=== PATIENT | male | born 1955 | race Caucasian/White ===

== ENCOUNTER 2018-05-28 15:01 | Inpatient (IN) ==
--- NOTE | 2018-05-28 16:09 | EKG Report ---
Test Performed on : 05/28/2018 3:18:42 PM Test Reason : FLUID ON LUNGS Blood Pressure : / mmHG Vent. Rate : 100 BPM Atrial Rate : 100 BPM P-R Int : 142 ms QRS Dur : 064 ms QT Int : 328 ms P-R-T Axes : 029 011 005 degrees QTc Int : 423 ms Normal sinus rhythm. Low voltage QRS Cannot rule out Anterior infarct , age undetermined Abnormal ECG When compared with ECG of 24-AUG-2017 15:34, Nonspecific T wave abnormality, worse in Anterior leads Unconfirmed Result
[2018-05-28 16:19] LABS: BASO# 0.02 X1000 (0.0-0.2); BASO% 0.3 % (0.0-0.8); EOS# 0.11 X1000 (0.0-0.7); EOS% 1.7 % (0.0-10.0); HEMATOCRIT 33.7 % (42.0-52.0); HEMOGLOBIN 11.2 g/dL (14.0-18.0); LYMPH# 1.23 X1000 (1.2-3.4); LYMPH% 19.4 % (20.5-51.1); MCH 35.1 PG (27-31); MCHC 33.2 g/dL (33-37); MCV 105.6 FL (81-99); MONO# 0.51 X1000 (0.11-0.59); MONO% 8.1 % (1.7-9.3); MPV 10.6 FL (7.4-10.4); NEUT# 4.46 X1000 (1.4-6.5); NEUT% 70.5 % (42.2-75.2); PLT 97 X1000 (130-400); RBC 3.19 XMIL (4.7-6.1); RDW 14.7 % (11.5-14.5); WBC 6.33 X1000 (4.8-10.8)
--- NOTE | 2018-05-28 16:28 | Diag Imaging Result Doc PS360 ---
EXAM: CHEST-1 VIEW HISTORY: ascites TECHNIQUE: Single view COMPARISON: 08/31/2017 FINDINGS: The lungs are well expanded. The heart is not enlarged. The vessels are not distended. There are no infiltrates. No effusion identified. IMPRESSION: Negative exam. Electronically signed by Nikko Santa 05/28/2018 4:25 PM
[2018-05-28 16:32] LABS: ALB/GLOB RATIO 0.8; ALBUMIN 2.7 g/dL (3.5-5.0); CALCIUM 8.4 mg/dL (8.8-10.2); POTASSIUM 4.5 mmol/L (3.5-5.1); TOTAL BILIRUBIN 1.27 mg/dL (0.20-1.00); TOTAL PROTEIN 5.9 g/dL (6.3-8.3)
[2018-05-28 16:39] LABS: INR 1.14; PROTIME 15.5 Seconds (11.0-16.0); PTT 32.1 Seconds (22.3-41.8)
--- NOTE | 2018-05-28 18:43 | PROVIDER DOCUMENTATION ---
This chart was entered by Serena Dorado Scribe, acting as scribe for Tyler Ayala MD. HPI-Abdominal Pain/GI Problem - General Chief Complaint: Abdominal Pain Stated Complaint: FLUID ON LUNGS-DR HALL REF Time Seen by Provider: 05/28/18 15:33 Source: patient Allergies/Adverse Reactions: Patient Allergies Allergy/AdvReac Type Severity Reaction Status Date / Time No Known Allergies Allergy Verified 05/28/18 16:09 Home Medications: Home Medication List Medication Instructions Recorded Confirmed Last Taken Type Metformin [Glucophage] 850 mg PO DAILY 08/24/17 05/28/18 05/28/18 History Folic Acid 1 mg PO DAILY #30 tab 09/05/17 05/28/18 05/28/18 Rx Omeprazole [Prilosec] 40 mg PO DAILY #30 capsule. 09/05/17 05/28/18 05/28/18 Rx Oxycodone I.r. [Oxy Ir] 5 mg PO Q4H PRN #30 tablet 09/05/17 Unknown Rx Spironolactone [Aldactone] 100 mg PO DAILY #60 tab 09/05/17 05/28/18 05/28/18 Rx Topiramate [Topamax] 25 mg PO DAILY #30 tab 09/05/17 05/28/18 05/28/18 Rx Sofosbuvir/Velpatasvir [Epclusa 1 tab PO DAILY 05/28/18 05/28/18 05/28/18 Hi story 400 mg-100 mg Tablet] - History of Present Illness-ABD Nature of Presenting Problems: Patient is a 62 year old male who presents with generalized abdominal pain and swelling that has been present for 2 weeks. Report history of cirrhosis. States shortness of breath. Denies nausea, vomiting and fever. Abdominal Pain Onset Location: reports: generalized abdomen Pain Radiation: reports: no radiation Quality of Pain: reports: aching, tightness Severity in ED: reports: mild Onset/Duration: reports: gradual, other (2 weeks) Timing: reports: still present Associated Symptoms: reports: shortness of breath Bruising or Bleeding Gums?: No Similar Symptoms Previously?: Yes Recently seen or treated by another doctor?: Yes Review of Systems - Adult - REVIEW OF SYSTEMS - ADULT Constitutional: reports: no symptoms reported. denies: chills, fever, fatique Eyes: reports: no symptoms reported Ears, Nose, Mouth & Throat: reports: no symptoms reported Cardiovascular: reports: no symptoms reported Respiratory: reports: see HPI, shortness of breath. denies: cough, wheezing Gastrointestinal: reports: see HPI, abdominal pain. denies: diarrhea, nausea, vomiting Genitourinary: reports: no symptoms reported Musculoskeletal: reports: no symptoms reported Integumentary: reports: no symptoms reported Neurological: reports: no symptoms reported Psychiatric: reports: no symptoms reported Endocrine: reports: no symptoms reported Hematologic/Lymphatic: reports: no symptoms reported Allergic/Immunologic: reports: no symptoms reported All Other Systems: Reviewed and Negative Past History - Adult - PAST MEDICAL HISTORY-ADULT Review of Records: reports: Nursing Assessment Review, Medications Reviewed, Social history reviewed & non-contributory. Major Childhood Illnesses: reports: denies history Cardiovascular: reports: denies history Respiratory: reports: denies history Gastrointestinal: reports: hepatitis (C) Obstetrical/Gynecological: reports: denies history Genitourinary: reports: denies history Musculoskeletal: reports: denies history Neurological: reports: Seizures/Epilepsy Psychiatric: reports: denies history Endocrine/Immune: reports: Diabetes Other Conditions: reports: denies history - PRIOR SURGERIES/PROCEDURES Surgical/Procedure History: reports: none - IMMUNIZATION STATUS Childhood Immunizations: See Nurse Assessment Flu Vaccine: See Nurse Assessment - FAMILY HISTORY Family History: reviewed, not pertinent - SOCIAL HISTORY Smoking: cigarettes, less than 1 pack/day Provider spent 3-5 mins advising pt. on dangers of tobacco.: Discussed manners to quit use, and f/u contacts for add'l counseling. Substance Use: denies Physical Exam-General - PHYSICAL EXAM-ADULT Initial Vital Signs Reviewed: Yes - CONSTITUTIONAL General Appearance: alert, no apparent distress. negative: lethargic, slow to respond - HEAD, EARS, NOSE, MOUTH & THROAT HENMT: moist mucous membranes, normal ENT inspection. negative: angioedema, hearing deficit - RESPIRATORY Respiratory: chest non-tender, lungs clear, normal breath sounds. negative: crackles, rhonchi - CARDIOVASCULAR Cardiovascular: normal peripheral pulses, regular rate, rhythm. negative: tachycardia, systolic murmur - GASTROINTESTINAL (ABDOMEN) Abdominal Exam: normal bowel sounds, distended, other (positive fluid wave) - MUSCULOSKELETAL Extremity: non-tender, other (3 + pitting edema to bilateral lower extremities.) . negative: deformity, erythema - SKIN Integumentary: normal color, normal turgor, warm/dry. negative: cyanosis, ecchymosis, jaundice - NEUROLOGIC Neurologic: grossly normal. negative: aphasia, facial droop - PSYCHIATRIC Psych/Mental Status: normal mood/affect, oriented x 3. negative: paranoid, tearful Progress - PLAN OF CARE/RESULTS Progress/Plan/Lab Results: Vital Signs - 8 hr 05/28/18 15:05 05/28/18 15:21 05/28/18 16:06 Temperature 98.5 F 98.3 F Pulse Rate 79 101 H 97 H Respiratory Rate 20 18 16 Blood Pressure 105/65 111/73 O2 Sat by Pulse Oximetry 97 96 98 Orders Category Date Time Status CHEST-1 VIEW [RAD] Stat Exams 05/28/18 16:01 Ordered AMMONIA [CHEM] Stat Lab 05/28/18 16:01 Uncollected CBC WITH DIFF [HEME] Stat Lab 05/28/18 15:13 Results COMPREHENSIVE METABOLIC PANEL [CHEM] Stat Lab 05/28/18 15:13 Received PROTIME WITH INR [COAG] Stat Lab 05/28/18 15:13 Received PTT [COAG] Stat Lab 05/28/18 15:13 Received EKG [EKG] Stat Ther 05/28/18 16:01 Draft Result Diagrams: 05/28/18 15:13 05/28/18 15:13 - EKG 1 Time of EKG reading by physician:: 15:18 EKG Read and Signed by:: Tyler Ayala EKG Interpretation (*Must complete 3 of following elements*): Abnormal Rate: 100 Rhythm: normal sinus rhythm QRS: other (low voltage) HI Interval: normal Comments: cannot rule out anterior infarct, age undetermined - CONSULTS/PCP/HOSPITALIST Notification #1 *Consult/PCP/Hospitalist*: [facility] Time Discussed: 18:35 Consult Disposition: Will see in ED, Admit Departure - Departure Date of Disposition Decision: 05/28/18 Time of Disposition Decision: 18:35 DIAGNOSIS: Ascites, Cirrhosis Disposition: ADMITTED INPATIENT 09 Certified Medical Emergency: Emergent Condition: Good Referrals and Follow-Ups: Uzair Hall Jr, MD [Primary Care Provider] - - Critical Care Note This patient required my direct & personal management of CC.: No Attestation - Physician/ JENNIFER Attestation Patient care was provided by Advanced Practice Provider:: No The physician spent face to face time with patient:: Yes Advanced Practice Provider documentation review:: Supervising physician onsite and consulted in the evaluation and care of this patient. The physician did have a face to face encounter with the patient. This chart was documented by the indicated scribe, (Serena Dorado Scribe) and accurately reflects the services I performed and decisions made by me, Tyler Ayala MD, as attested by the provider's signature.
[2018-05-28] MEDS ORDERED: ALBUMIN 25% IV ONE (19:26)
[2018-05-28] MEDS ORDERED: ZOFRAN IV PRN (19:26)
[2018-05-28] MEDS ORDERED: NS 1,000 ML IV SCH (19:30)
[2018-05-28] MEDS ORDERED: LASIX IV ONE (19:31)
[2018-05-28] MEDS: OXY IR PO PRN (20:55)
[2018-05-28] MEDS ORDERED: LACTULOSE PO SCH (21:00)
[2018-05-28] MEDS ORDERED: PNEUMOVAX 23 IM ONE (23:07)
[2018-05-29] MEDS: OXY IR PO PRN ×2 (00:51→15:10)
[2018-05-29] MEDS: PRILOSEC PO SCH (06:16)
[2018-05-29] MEDS: HUMALOG SUBQ SCH ×5 (06:56→22:49)
[2018-05-29 07:08] LABS: CALCIUM 8.3 mg/dL (8.8-10.2); CREATININE 1.6 mg/dL (0.7-1.2); POTASSIUM 3.9 mmol/L (3.5-5.1)
[2018-05-29 07:32] LABS: HEMOGLOBIN A1C 4.5 % (4.8-6.0)
[2018-05-29] MEDS ORDERED: ALBUMIN 25% IV ONE (07:40)
--- NOTE | 2018-05-29 08:46 | HISTORY AND PHYSICAL ---
CHIEF COMPLAINT: Abdominal pain. HISTORY OF PRESENT ILLNESS: A 63-year-old male who presents with generalized abdominal pain and swelling present for 2 weeks, has been increasing. Also complains of lower extremity swelling, is having increased shortness of breath related to his abdominal distention. Denies nausea, vomiting, fever. He has a past medical history that includes hepatitis C, cirrhosis, colitis and diabetes mellitus type 2. Chest x-ray showed no acute disease; however, he was somewhat hypoxic on room air and abdomen was distended. He will be admitted for further evaluation and treatment. PAST MEDICAL HISTORY: See HPI. PREVIOUS SURGICAL HISTORY: Denies. SOCIAL HISTORY: He smokes around 1/2 pack a day. Drank alcohol in the 1970s, has not drank since then. No illicit drugs. ALLERGIES: No known drug allergies. HOME MEDICATIONS: 1. Metformin 850 p.o. daily. 2. Folic acid one mg p.o. daily. 3. Omeprazole 40 mg p.o. daily. 4. Oxycodone IR 5 mg p.o. q.4. 5. Epclusa 400/100 one tablet p.o. daily. 6. Aldactone 100 mg p.o. daily. 7. Topamax 25 mg p.o. daily. FAMILY HISTORY: Sister with cirrhosis and nephew with cirrhosis. Denied other illness in first degree relatives. REVIEW OF SYSTEMS: A 14 point review of systems conducted with the patient and pertinent positives as listed above in the HPI. All other systems reviewed and found to be negative. PHYSICAL EXAMINATION: VITAL SIGNS: Temp 98.1 degrees, pulse 98, respirations 16, blood pressure 122/50, oxygen saturation 99% on room air. GENERAL: A 63-year-old man lying in the ER stretcher, answers all questions appropriately. Alert and oriented x3. He is in no acute distress. HEENT: Head is atraumatic, normocephalic. Pupils equal, round and reactive to light. Extraocular eye movements are intact. Sclerae anicteric. Conjunctivae is mildly pale. Oral mucosa is moist. NECK: Supple. No JVD. No thyromegaly. Trachea is midline. No cervical lymphadenopathy. CARDIAC: S1, S2 appreciated. No murmurs, gallops, rubs. LUNGS: Clear to auscultation bilaterally. No rhonchi, wheezes or rales. Symmetric rise and fall of respirations. ABDOMEN: Distended, somewhat tight. Positive fluid wave test. Bowel sounds decreased all 4 quadrants. Tender to palpation diffusely. EXTREMITIES: 2+ pitting edema mid thigh to foot. 1+ pedal pulses. GENITOURINARY: No bladder distention. Patient voids. Otherwise deferred. NEUROLOGICAL: Alert and oriented x3. Cranial nerves 2-12 appear to be grossly intact. DIAGNOSTIC DATA: Chest x-ray, no acute disease. LABORATORY DATA: WBC 6.33, hemoglobin 11.2, hematocrit 33.7, platelet count 97,000. Coags within normal limits. Sodium 140, potassium 4.5, chloride 109, carbon dioxide 19, BUN 23, creatinine 2, glucose 120. Total bilirubin 1.27. ASSESSMENT AND PLAN: 1. Cirrhosis with ascites. We will order an abdominal ultrasound. Patient may be able to have paracentesis which will relieve some of the pain. At this time, we will get 25 grams of albumin and 60 of Lasix. Consult JUAREZ Hartman. 2. Hepatitis C, aware. Continue home medications. 3. Acute kidney injury on chronic kidney disease. As noted above, gave albumin and Lasix. We will give gentle fluid rehydration, recheck laboratory data. 4. Diabetes mellitus type 2. Hold metformin. Check hemoglobin A1c. Sliding scale insulin with fingerstick blood sugars. Further recommendations per patient's clinical course. Dictated by MATT Mehta for Colton Schrader MD cc: MATT Mehta MD Patient seen and examined by il. He has a history of liver cirrhosis/hep.C and presenting with abdominal distention . Patient noted to have ascites. Will need paracentesis and diuretics with GI eval. Dr. Schrader. [facility]ITAL[facility]an[facility]
[2018-05-29] MEDS ORDERED: VELPATASVIR PO SCH (09:00)
[2018-05-29] MEDS ORDERED: SOFOSBUVIR PO SCH (09:00)
[2018-05-29] MEDS ORDERED: ALDACTONE PO SCH (09:00)
[2018-05-29] MEDS: TOPAMAX PO SCH (09:24)
[2018-05-29] MEDS: FOLIC ACID PO SCH (09:24)
--- NOTE | 2018-05-29 09:44 | GASTROENTEROLOGY CONSULTATION ---
DATE: 05/29/2018 REASON FOR CONSULTATION: decompensated cirrhosis with ascites HPI: Mr. Lito Pretty is a 63 year old man with history of decompensated HCV cirrhosis c/b ascites who presents with 3 weeks of worsening abdominal pain, ascites, weight gain, and LE edema. He reports associated early satiety and poor appetite. No N/V/F, hematemesis, diarrhea, melena, constipation, rectal bleeding, lightheadedness, headache, SOB, cough, confusion. He does have AGUILERA. He reports compliance with home aldactone. However, he does admit to non-compliance with low Na diet. He says he does add salt to food and consumes "a lot" of sodium. He denies history of hepatic encephalopathy. No prior EGD or colonoscopy. He was started on Epclusa about 2-3 months ago and was told that he has "6 bottles" of treatment left. He is currently being treated by a physician at [facility]. He has gained about 13 pounds since onset of symptoms. ROS: as per HPI, otherwise 12 point ROS negative PMH: Decompensated HCV cirrhosis, ascites, GERD, NIDDM2, headaches, tobacco abuse PSH: none FH: No FHx of liver disease or GI malignancies SH: smokes 1/2 ppd, has been smoking for last 40 years; remote etoh abuse (last drink 30 years ago); remote opioid abuse (pills) MEDS: metformin, folic acid, omeprazole, oxycodone, Epclusa, aldactone, topamax, ibuprofen prn ALL: NDKA PE: VS: T 98.5 HR 91 BP 97/54 RR 14 O2 93% RA GEN: awake, alert, NAD, chronically ill appearing HEENT: anicteric, MMM, EOMI NECK: supple, no jvd CV: RRR, no mrg PULM: CTAB, no wheezing ABD: distended with tense ascites, hypoactive BS, diffuse mild TTP throughout EXT: trace LE edema, WWP MSK: peripheral muscle wasting, decrease bulk/tone NEURO: nonfocal, no asterixis; no hepatic encephalopathy LABS: Na 140 K 4.5 Cl 109 CO2 19 BUN 23 Cr 2.0 WBC 6.3 Hgb 11.2 Plt 97K Alb 2.7 pro 5.9 Tbili 1.27 AST 29 ALT 13 ALP 87 INR 1.14 ammonia 83 TSH 5.37 EXAM: CHEST-1 VIEW 05/28 HISTORY: ascites TECHNIQUE: Single view COMPARISON: 08/31/2017 FINDINGS: The lungs are well expanded. The heart is not enlarged. The vessels are not distended. There are no infiltrates. No effusion identified. IMPRESSION: Negative exam. A/P: Mr. Lito Pretty is a 63 year old man with history of decompensated HCV cirrhosis who presents with worsening ascites, LE edema, and weight gain in the setting of noncompliance with low salt diet. He has SUJIT as well. #Decompensated HCV cirrhosis: MELD-Na 15, CP-B9 - Cirrhosis: 2/2 to HCV; trend LFTs daily - Ascites: diagnostic and therapeutic paracentesis today; will give albumin IV 50gm; low Na diet, trend I/O, daily weights - PSE: none prior; no asterixis; ammonia is not a good surrogate for hepatic encephalopathy; no indication for lactulose - EV: no overt bleeding; patient will need EGD for varices screening as outpatient - HCC: recommend liver US for hepatoma screening (ordered) - OLT: MELD-Na 15, smoker #SUJIT: hold diuretics, renally dose meds, albumin today; trend Cr daily #HCV: continue home Epclusa #Protein calorie malnutrition: continue folic acid, recommend high protein calorie diet, ensure with meals #Anemia: no overt bleeding; will need EGD/colonoscopy as outpatient #GERD: controlled; continue PPI #NIDDM2: hold metformin, SSI #Tobacco abuse: encourage smoking cessation Thank you for this consult. Will follow with you. KARIS
--- NOTE | 2018-05-29 11:09 | Diag Imaging Result Doc PS360 ---
US ABD PARACENTESIS W S/I - 05/29/2018 INDICATION: ascites COMPARISON: None FINDINGS: The risks and benefits of the procedure were discussed with the patient. All questions were answered. Written and verbal consent was obtained. Ultrasound scanning demonstrated ascites. Overlying skin was prepped and draped in sterile fashion. Anesthesia was achieved with injection of 10 cc 1% lidocaine. The paracentesis catheter was advanced until the return of ascites fluid. 7.8 L was aspirated. The catheter was withdrawn intact. The patient reported no symptoms from the procedure. IMPRESSION: Successful and uncomplicated ultrasound-guided paracentesis. Electronically signed by Uzair Gillette 05/29/2018 11:07 AM
--- NOTE | 2018-05-29 11:13 | Diag Imaging Result Doc PS360 ---
US ABDOMEN-COMPLETE - 05/29/2018 INDICATION: paracentesis? COMPARISON: None FINDINGS: The liver is extremely nodular and atrophic. No liver masses. Echotexture is diffusely increased compatible with fatty change. There is nonspecific bowel or wall thickening. There are a few small stones in the gallbladder. No gallbladder distention. There is significant splenomegaly. The spleen measures 16.1 x 7.3 cm. There is a shadowing reflector in the left renal collecting system measuring about 6 mm. This suggests a renal stone. No hydronephrosis. The right kidney is normal. The pancreas is obscured. Aorta, IVC, and main portal vein are patent. There is significant ascites. IMPRESSION: 1. Advanced cirrhosis. Splenomegaly. 2. Significant ascites. 3. Tiny gallstones in the gallbladder. 4. Probable nonobstructing stone in the left kidney. Electronically signed by Uzair Gillette 05/29/2018 11:11 AM
[2018-05-29 12:58] LABS: ALBUMIN BODY FLUID 0.5 g/dL
[2018-05-29 13:12] LABS: BODY FLUID SOURCE PERITONEAL FLUID; POLYS 28 %; WBC BF 80 /cumm
[2018-05-29 13:13] LABS: MONOS 72 %
--- NOTE | 2018-05-29 16:48 | PROGRESS NOTE ---
DATE: 05/29/2018 SUBJECTIVE: This morning Mr. Pretty refers to be doing a whole lot better. He is status post paracenteses and 7.8 L were aspirated under ultrasound guidance by IR. OBJECTIVE: Vital signs: Blood pressure is 99/49, pulse is 109, respirations 16, temperature is 98.1 degrees. General: Mr. Pretty is a 63-year-old male. He is in bed, no distress. He is full of tattoos. HEENT: Mucosa is pink and moist. Anicteric. Acyanotic. Neck: Supple. Chest: Clear to auscultation. Cardiovascular: Regular rate and rhythm. Abdomen: Soft. There is still some fluid shift in the lower abdomen. Extremities: About 2+ pedal edema. MANAGER [place]: Patient is awake, alert, and oriented. No focal neurological deficit. LABORATORY DATA: Chemistry has been reviewed today. Creatinine is down to 1.6. Total bilirubin is 1.27. Fluid analysis is consistent with SAAG which is more than 1.1, consistent with portal hypertension. ASSESSMENT: 1. Cirrhosis complicated with ascites, portal hypertension. 2. Cirrhosis of the liver due to a combination of alcohol and hepatitis C. 3. Ascites, status post large volume paracenteses, 7.8 has been removed under ultrasound guidance by IR. The patient has been given albumin. 4. Hepatitis C. The patient is on medications. We will continue with that. 5. Diabetes mellitus, controlled. 6. Macrocytosis. Likely due to cirrhosis, alcohol side effects. 7. Acute kidney injury. Creatinine seems to be on downward trend. We are going to continue to follow. cc: Morgan Torres MD
[2018-05-30] MEDS: HUMALOG SUBQ SCH ×3 (03:00→08:37)
[2018-05-30 07:19] LABS: BASO# 0.02 X1000 (0.0-0.2); BASO% 0.5 % (0.0-0.8); EOS# 0.14 X1000 (0.0-0.7); EOS% 3.4 % (0.0-10.0); HEMATOCRIT 28.9 % (42.0-52.0); HEMOGLOBIN 9.8 g/dL (14.0-18.0); LYMPH# 1.52 X1000 (1.2-3.4); MCH 35.9 PG (27-31); MCHC 33.9 g/dL (33-37); MCV 105.9 FL (81-99); MONO# 0.34 X1000 (0.11-0.59); MONO% 8.3 % (1.7-9.3); MPV 10.2 FL (7.4-10.4); NEUT# 2.09 X1000 (1.4-6.5); NEUT% 50.8 % (42.2-75.2); PLT 69 X1000 (130-400); RBC 2.73 XMIL (4.7-6.1); RDW 14.4 % (11.5-14.5); WBC 4.11 X1000 (4.8-10.8)
[2018-05-30 07:33] VITALS: BP 96/51
[2018-05-30 07:40] LABS: AGAP 7; ALBUMIN 2.4 g/dL (3.5-5.0); BUN 17 mg/dL (8-22); CALCIUM 7.8 mg/dL (8.8-10.2); CHLORIDE 109 mmol/L (98-107); COSMO 275; CREATININE 1.1 mg/dL (0.7-1.2); ESTIMATED GFR > 60; GLUCOSE 84 mg/dL (70-104); PHOSPHORUS 2.1 mg/dL (2.7-4.5); SODIUM 137 mmol/L (136-145); TCO2 21 mmol/L (25-35)
[2018-05-30] MEDS: FOLIC ACID PO SCH (08:36)
[2018-05-30] MEDS: PRILOSEC PO SCH (08:36)
[2018-05-30] MEDS: TOPAMAX PO SCH (08:37)
--- NOTE | 2018-05-30 11:46 | GASTROENTEROLOGY PROGRESS NOTE ---
DATE: 05/30/2018 SUBJECTIVE: Patient is resting in bed. He is feeling better. He denies any fevers, rigors, or chills. He denies any nausea or vomiting. He is on full liquid diet. The patient is currently on treatment with Epclusa per abap developer at [place] for chronic hepatitis C. OBJECTIVE: Vital signs: Temperature 99.2 degrees, pulse rate of 88, respiratory rate of 16, blood pressure 92/51, saturating 96% on room air. Weight: Body weight of 179 pounds. BMI 23 kg/m2. General Appearance: Moderately built, moderately nourished, lying in bed, in no acute distress. HEENT: Pale conjunctiva. Mild icterus. Neck is supple. Abdomen is protuberant, soft, nontender, no guarding, no rebound. Extremities: No cyanosis, clubbing. Neurologic: Alert, awake, oriented x3. DIAGNOSTIC STUDIES: Hemoglobin 9.8, hematocrit 28.9, white count of 4.1, platelet count 69. Sodium 137, potassium 4, chloride 109, bicarbonate 20, anion gap 7, BUN of 17, glucose 84, calcium 7.8, phosphorus 2.1, albumin 2.4. TSH 5.37. Ammonia of 83 on 05/28/2018. Total protein 5.9, albumin of 2.7, AST 29, ALT 13, alkaline phosphatase 87. Fluid studies show white cells of 80%, neutrophils 28%. Ascitic fluid showing no growth on preliminary study. IMPRESSION AND PLAN: 1. Decompensated hepatitis C cirrhosis. Being managed by Hepatology at [place]. He is on Epclusa for chronic hepatitis C. During the hospital stay, he had paracentesis. He was given albumin. He is feeling better now. He will continue to resume his Epclusa. He will contact his abap developer at [place] to schedule a follow up in the next 1 week. Patient will remain on a low-sodium diet. He will restrict free fluid to 1.5 L per 24 hours. 2. Question of Hepatic encephalopathy. His ammonia is elevated. He may need lactulose if he starts showing signs of hepatic encephalopathy. He does not have any asterixis at the moment, but he will need to be assessed as an outpatient per his primary abap developer regarding the use of Xifaxan and lactulose. 3. Ultrasound of the abdomen showed advanced cirrhosis, splenomegaly, significant ascites, tiny stones in the gallbladder, and probable nonobstructing stone in the left kidney. No hepatoma was noted on the ultrasound. 4. Acute kidney injury. His diuretics were withheld. He was given albumin. 5. Protein-calorie malnutrition. He will continue on protein 1 g/kg body weight diet and continue multivitamin and folic acid. 6. Anemia. No signs of active gastrointestinal bleeding. He will continue multivitamin once daily. 7. Reflux disease. He will continue on omeprazole once daily and folic acid. 8. Tbw-fndyqjr-vqpxutsed diabetes. He is on SSI. 9. Chronic smoker. Was counseled to quit smoking. We will follow along. The above plans were discussed with the patient, and all questions were answered. Please call us with any questions. cc: MD Morgan De Dios MD MTDD
--- NOTE | 2018-05-31 06:00 | DISCHARGE SUMMARY ---
ADMISSION DATE: 05/28/2018 DISCHARGE DATE: 05/30/2018 DISPOSITION: Home. FOLLOW-UP: 1. Dr. Ward. 2. Dr. Lockwood. 3. His liver medical team at [facility]. CONSULTATION DURING ADMISSION: GI was consulted. Patient was seen by Dr. Lockwood. INVASIVE PROCEDURES DURING ADMISSION: Ultrasound-guided paracentesis was done by IR, 7.8 L was removed. Fluid analysis was consistent with portal hypertension physiology. ADMISSION DIAGNOSES: 1. Cirrhosis with ascites. 2. Hepatitis C. 3. Diabetes mellitus type 2. DIAGNOSIS AT TIME OF DISCHARGE: 1. Cirrhosis of the liver complicated with ascites, portal hypertension, and thrombocytopenia. 2. Cirrhosis due to combination of alcohol abuse in the past and hepatitis C. MELD score 11 3. Ascites, status post large volume paracenteses, 7.8 L removed. Albumin was given. 4. Hepatitis C, on antivirals. 5. Diabetes mellitus, controlled. 6. Microcytic anemia. 7. Acute kidney injury, improved during the hospital course. DISCHARGE MEDICATIONS: 1. Metformin 850 once daily. 2. Oxycodone 5 mg q.4 hours p.r.n. 3. Spironolactone 100 mg daily. 4. Topiramate 25 p.o. daily. 5. Folic acid 1 mg daily. 6. Omeprazole 40 mg daily. 7. Epclusa 400/100 mg, 1 tablet daily. 8. Furosemide 40 mg daily p.o. PRESENTING COMPLAINT: Abdominal pain. HISTORY OF PRESENTING COMPLAINT: Mr. Pretty is a 63-year-old male with a history of cirrhosis of the liver who follows up in [facility] at the [facility], presented to the emergency department because of progressively worsening abdominal pain, abdominal swelling. Upon presentation, he was evaluated and admitted for further medical care. HOSPITAL COURSE: Mr. Pretty was admitted to the medical floor. He underwent large volume paracenteses, 7.8 L was removed. Fluid analysis had SAAG > 1.1 which was consistent for portal hypertension physiology. He was also given albumin after procedure. His kidney function got better and he also felt better after the procedure. This morning, he feels great. His vitals are stable, blood pressure is 96/51, pulse is 88, respirations 16, temperature 99.2 degrees. His fluid analysis showed WBC of 80, however, the segments was 28, which was not consistent with any SBP. He is clinically stable. He is going to be discharged and he will follow up with his primary team at [facility]. All the discharge instructions have been discussed with him and he voiced understanding. TIME SPENT: For discharge is 36 minutes. cc: Morgan Torres MD MTDD
== END 2018-05-30 11:14 | disposition home or self-care (01) | DRG 433 ==
LOC: ED 15:01 → 4N 19:39 → SUATTDRO 19:39
PROVIDERS: ATTEND Internal Medicine
CPT/HCPCS: 49083; 71010; 71045; 76700; 80048; 80053; 80069; 82042; 82140; 82948; 83036; 84157; 84439; 84443; 85025; 85610; 85730; 87070; 87075; 89051; 93005; 96361; 96374; 96375; 99285; A9270; J1815; J1940; J7030; P9047; XXXXX

== ENCOUNTER 2018-07-29 14:05 | Inpatient (IN) ==
[2018-07-29] MEDS ORDERED: NS 1,000 ML IV ONE (15:01)
[2018-07-29 15:19] LABS: ALLEN TEST NO; BE -2.5 mmoll (-3.0-3.0); BLOOD TYPE ARTERIAL; O2(CT) 14.9 mL/dL (15.0-23.0); O2HB 96.2 % (95.0-99.0); PCO2(98.6) 26 mmHg (35-45); PO2(98.6) 92 mmHg (60-100); SAMPLE BLOOD; SAO2 98.9 % (95.0-100.0); THB 10.9 g/dL (11.5-17.4); pH(98.6) 7.49 (7.35-7.45)
[2018-07-29 15:20] LABS: MODALITY ROOM AIR
--- NOTE | 2018-07-29 15:42 | EKG Report ---
Test Performed on : 07/29/2018 2:54:16 PM Test Reason : ams Blood Pressure : / mmHG Vent. Rate : 117 BPM Atrial Rate : 117 BPM P-R Int : 150 ms QRS Dur : 062 ms QT Int : 316 ms P-R-T Axes : 061 011 047 degrees QTc Int : 440 ms Sinus tachycardia. Low voltage QRS Borderline ECG When compared with ECG of 17-JUL-2018 11:31, (Unconfirmed) No significant change was found Unconfirmed Result
--- NOTE | 2018-07-29 15:52 | Diag Imaging Result Doc PS360 ---
CHEST-PORTABLE - 07/29/2018 INDICATION: ams COMPARISON: 05/28/2018 FINDINGS: There is severe patient motion artifact. The exam should be repeated. IMPRESSION: Severe patient motion artifact. Electronically signed by Uzair Gillette 07/29/2018 3:50 PM
[2018-07-29] MEDS ORDERED: ZOSYN 3.375 GM in NS 50 ML IV ONE (16:03)
[2018-07-29 17:05] LABS: BASO# 0.02 X1000 (0.0-0.2); BASO% 0.2 % (0.0-0.8); LYMPH% 11.1 % (20.5-51.1)
[2018-07-29 17:09] LABS: INR 1.1; PROTIME 15.1 Seconds (11.0-16.0)
[2018-07-29 17:54] LABS: ALB/GLOB RATIO 1.1; CALCIUM 9.1 mg/dL (8.8-10.2); CREATININE 1.4 mg/dL (0.7-1.2); POTASSIUM 5.2 mmol/L (3.5-5.1); TOTAL BILIRUBIN 2.59 mg/dL (0.20-1.00); TOTAL PROTEIN 5.8 g/dL (6.3-8.3)
[2018-07-29 18:25] LABS: EOS# 0.04 X1000 (0.0-0.7); EOS% 0.5 % (0.0-10.0); HEMATOCRIT 33.5 % (42.0-52.0); HEMOGLOBIN 11.6 g/dL (14.0-18.0); IMM GRAN# 0.04 X1000 (0.0-0.04); IMM GRAN% 0.5 % (0.0-0.5); LYMPH# 0.97 X1000 (1.2-3.4); MCH 37.3 PG (27-31); MCHC 34.6 g/dL (33-37); MCV 107.7 FL (81-99); MONO# 0.99 X1000 (0.11-0.59); MONO% 11.3 % (1.7-9.3); MPV 10.2 FL (7.4-10.4); NEUT# 6.69 X1000 (1.4-6.5); NEUT% 76.4 % (42.2-75.2); PLT 104 X1000 (130-400); RBC 3.11 XMIL (4.7-6.1); RDW 14.3 % (11.5-14.5); WBC 8.75 X1000 (4.8-10.8)
[2018-07-29 18:26] LABS: CK INDEX 1.7 (0.0-2.5); CK-MB 4.2 ng/mL (0.0-5.0)
--- NOTE | 2018-07-29 18:39 | PROVIDER DOCUMENTATION ---
This chart was entered by Serena Dorado Scribe, acting as scribe for Joan Mann MD. HPI-Neurological Disorder - General Chief Complaint: Altered Mental Status Stated Complaint: AMS Time Seen by Provider: 07/29/18 14:31 Source: EMS Allergies/Adverse Reactions: Patient Allergies Allergy/AdvReac Type Severity Reaction Status Date / Time No Known Allergies Allergy Verified 07/22/18 09:14 Home Medications: Home Medication List Medication Instructions Recorded Confirmed Last Taken Type Folic Acid 1 mg PO DAILY #30 tab 09/05/17 07/22/18 07/21/18 21:00 Rx Omeprazole [Prilosec] 40 mg PO DAILY #30 capsule. 09/05/17 07/22/18 07/21/18 21:00 Rx Spironolactone [Aldactone] 100 mg PO DAILY #60 tab 09/05/17 07/22/18 07/22/18 07:30 Rx Sofosbuvir/Velpatasvir [Epclusa 1 tab PO DAILY 05/28/18 07/07/18 05/28/18 History 400 mg-100 mg Tablet] Furosemide [Lasix] 40 mg PO DAILY #60 tab 05/30/18 07/22/18 07/21/18 21:00 Rx Oxycodone I.r. [Oxy Ir] 10 mg PO Q4H PRN 07/22/18 07/22/18 07/21/18 09:00 History - History of Present Illness-Neuro Nature of Presenting Problem: Patient is a 63 year old male who presents to the ED via EMS with altered mental status. EMS states patient was found on the floor by family with decrease in responsiveness. EMS states patient has a history of cirrhosis. Severity: reports: mild Onset/Duration: reports: unsure Timing: reports: still present Context: reports: other (AMS) Character of Altered Mental Status: reports: decreased responsiveness Any recent trauma/injury?: reports: none Associated Symptoms: reports: denies symptoms Similar Symptoms Previously?: No Recently seen or treated by another doctor?: No Review of Systems - Adult - REVIEW OF SYSTEMS - ADULT ROS:: unobtainable per condition Constitutional: reports: no symptoms reported Eyes: reports: no symptoms reported Ears, Nose, Mouth & Throat: reports: no symptoms reported Cardiovascular: reports: no symptoms reported Respiratory: reports: no symptoms reported Gastrointestinal: reports: no symptoms reported Genitourinary: reports: no symptoms reported Musculoskeletal: reports: no symptoms reported Integumentary: reports: no symptoms reported Neurological: reports: no symptoms reported Psychiatric: reports: no symptoms reported Endocrine: reports: no symptoms reported Hematologic/Lymphatic: reports: no symptoms reported Allergic/Immunologic: reports: no symptoms reported All Other Systems: Reviewed and Negative Past History - Adult - PAST MEDICAL HISTORY-ADULT Review of Records: reports: Old Records Reviewed, Nursing Assessment Review, Medications Reviewed, Social history reviewed & non-contributory. Major Childhood Illnesses: reports: denies history Cardiovascular: reports: denies history Respiratory: reports: denies history Gastrointestinal: reports: hepatitis (C), other (cirrhosis) Obstetrical/Gynecological: reports: denies history Genitourinary: reports: denies history Musculoskeletal: reports: denies history Neurological: reports: denies history Psychiatric: reports: denies history Endocrine/Immune: reports: Diabetes Other Conditions: reports: denies history - PRIOR SURGERIES/PROCEDURES Surgical/Procedure History: reports: none - IMMUNIZATION STATUS Childhood Immunizations: See Nurse Assessment Flu Vaccine: See Nurse Assessment - FAMILY HISTORY Family History: reviewed, not pertinent - SOCIAL HISTORY Smoking: cigarettes, greater than 1 pack/day Provider spent 3-5 mins advising pt. on dangers of tobacco.: Discussed manners to quit use, and f/u contacts for add'l counseling. Substance Use: none presently/history of abuse (history) Alcohol Use Frequency: sober (former use) Living Situation: alone Physical Exam- Neurological - Physical Exam-Neuro General Appearance: alert, lethargic, other (disoriented) Eye Exam: bilateral eye: normal inspection HENMT: normocephalic/atraumatic, moist mucous membranes. negative: angioedema, hearing deficit Head Injury: no evidence of injury. negative: contusions, ecchymosis, lacerations Respiratory: chest non-tender, lungs clear, other (labored breathing). negative: crackles, rhonchi, stridor Cardiovascular: normal peripheral pulses, regular rate, rhythm. negative: tachycardia, systolic murmur Abdominal Exam: no pulsatile mass, distended. negative: guarding, rebound Extremity: other (abrasions to bilateral forearms.). 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 negative: cyanosis, ecchymosis, erythema Psych/Mental Status: other (unable to assess per patient's condition) Progress - PLAN OF CARE/RESULTS Progress/Plan/Lab Results: Vital Signs - 8 hr 07/29/18 14:27 07/29/18 14:28 07/29/18 14:30 Temperature 98.4 F Pulse Rate 114 H Respiratory Rate 16 Blood Pressure 122/70 122/70 O2 Sat by Pulse Oximetry 93 L 100 100 07/29/18 14:40 07/29/18 14:50 07/29/18 15:00 Temperature Pulse Rate Respiratory Rate Blood Pressure O2 Sat by Pulse Oximetry 100 100 100 07/29/18 15:10 07/29/18 15:20 07/29/18 15:30 Temperature Pulse Rate Respiratory Rate Blood Pressure O2 Sat by Pulse Oximetry 100 100 100 07/29/18 15:40 07/29/18 15:50 07/29/18 16:00 Temperature Pulse Rate Respiratory Rate Blood Pressure O2 Sat by Pulse Oximetry 100 100 100 07/29/18 16:10 07/29/18 16:20 07/29/18 16:30 Temperature Pulse Rate Respiratory Rate Blood Pressure O2 Sat by Pulse Oximetry 100 100 100 07/29/18 16:40 07/29/18 16:50 07/29/18 17:00 Temperature Pulse Rate Respiratory Rate Blood Pressure O2 Sat by Pulse Oximetry 100 100 100 07/29/18 17:03 07/29/18 17:10 07/29/18 17:24 Temperature 97.7 F Pulse Rate 69 Respiratory Rate 16 Blood Pressure 101/60 101/60 O2 Sat by Pulse Oximetry 100 100 100 Laboratory Results - last 24 hr 07/29/18 07/29/18 07/29/18 15:00 16:30 16:38 WBC 8.75 RBC 3.11 L Hgb 11.6 L Hct 33.5 L MCV 107.7 H MCH 37.3 H MCHC 34.6 RDW Std Deviation 14.3 Plt Count 104 L MPV 10.2 Immature Gran % (Auto) 0.5 Neut % (Auto) 76.4 H Lymph % (Auto) 11.1 L [place] % (Auto) 11.3 H Eos % (Auto) 0.5 Baso % (Auto) 0.2 Immature Gran # (Auto) 0.04 Neut # (Auto) 6.69 H Lymph # (Auto) 0.97 L [place] # (Auto) 0.99 H Eos # (Auto) 0.04 Baso # (Auto) 0.02 PT INR PTT (Actin FS) Specimen Type ARTERIAL Sample Site R BRACHIAL pH 7.49 H pCO2 26 L pO2 92 HCO3 23.0 Base Excess -2.5 Oxyhemoglobin 96.2 ABG O2 Sat (Calculated) 14.9 L ABG O2 Saturation 98.9 ABG Carboxyhemoglobin 1.80 ABG Methemoglobin 1.0 Jones Test NO A-a O2 Difference 25.0 Total Hemoglobin 10.9 L Lactate 2.90 H Blood Gas Modality ROOM AIR FiO2 % 21.0 Sodium Potassium Chloride Carbon Dioxide Anion Gap BUN Creatinine Estimated GFR/1.73 m2 BUN/Creatinine Ratio Glucose POC Glucose 100 Calculated Osmolality Calcium Total Bilirubin AST ALT Alkaline Phosphatase Ammonia Creatine Kinase Creatine Kinase Index CK-MB (CK-2) Troponin T Total Protein Albumin Globulin Albumin/Globulin Ratio Plasma Lactate 07/29/18 07/29/18 07/29/18 16:38 16:38 16:38 WBC RBC Hgb Hct MCV MCH MCHC RDW Std Deviation Plt Count MPV Immature Gran % (Auto) Neut % (Auto) Lymph % (Auto) [place] % (Auto) Eos % (Auto) Baso % (Auto) Immature Gran # (Auto) Neut # (Auto) Lymph # (Auto) [place] # (Auto) Eos # (Auto) Baso # (Auto) PT 15.1 INR 1.10 PTT (Actin FS) 30.0 Specimen Type Sample Site pH pCO2 pO2 HCO3 Base Excess Oxyhemoglobin ABG O2 Sat (Calculated) ABG O2 Saturation ABG Carboxyhemoglobin ABG Methemoglobin Jones Test A-a O2 Difference Total Hemoglobin Lactate Blood Gas Modality FiO2 % Sodium 134 L Potassium 5.2 H Chloride 100 Carbon Dioxide 20 L Anion Gap 14 BUN 31 H Creatinine 1.4 H Estimated GFR/1.73 m2 51 BUN/Creatinine Ratio 22 Glucose 96 POC Glucose Calculated Osmolality 275 Calcium 9.1 Total Bilirubin 2.59 H AST 52 H ALT 30 Alkaline Phosphatase 103 Ammonia Creatine Kinase 242 H Creatine Kinase Index 1.7 CK-MB (CK-2) 4.20 Troponin T Total Protein 5.8 L Albumin 3.0 L Globulin 2.8 Albumin/Globulin Ratio 1.1 Plasma Lactate 4.0 H 07/29/18 07/29/18 16:38 16:38 WBC RBC Hgb Hct MCV MCH MCHC RDW Std Deviation Plt Count MPV Immature Gran % (Auto) Neut % (Auto) Lymph % (Auto) [place] % (Auto) Eos % (Auto) Baso % (Auto) Immature Gran # (Auto) Neut # (Auto) Lymph # (Auto) [place] # (Auto) Eos # (Auto) Baso # (Auto) PT INR PTT (Actin FS) Specimen Type Sample Site pH pCO2 pO2 HCO3 Base Excess Oxyhemoglobin ABG O2 Sat (Calculated) ABG O2 Saturation ABG Carboxyhemoglobin ABG Methemoglobin Jones Test A-a O2 Difference Total Hemoglobin Lactate Blood Gas Modality FiO2 % Sodium Potassium Chloride Carbon Dioxide Anion Gap BUN Creatinine Estimated GFR/1.73 m2 BUN/Creatinine Ratio Glucose POC Glucose Calculated Osmolality Calcium Total Bilirubin AST ALT Alkaline Phosphatase Ammonia 114 H Creatine Kinase Creatine Kinase Index CK-MB (CK-2) Troponin T < 0.010 Total Protein Albumin Globulin Albumin/Globulin Ratio Plasma Lactate Orders Category Date Time Status Cardiac Monitoring DIRECTED Care 07/29/18 14:52 Active Finger Stick Blood Sugar (ED) DIRECTED Care 07/29/18 14:52 Active Oxygen Therapy- ED Nursing DIRECTED Care 07/29/18 14:52 Active Saline Loc NOW Care 07/29/18 14:52 Active CHEST-PORTABLE [RAD] Stat Exams 07/29/18 14:52 Completed ABG [RESP] Routine Lab 07/29/18 15:00 Completed AMMONIA [CHEM] Stat Lab 07/29/18 16:38 Completed CBC WITH ELECTRONIC DIFF [HEME] Stat Lab 07/29/18 16:38 Completed CK PROFILE [SP CHEM] Stat Lab 07/29/18 16:38 Completed COMPREHENSIVE METABOLIC PANEL [CHEM] Stat Lab 07/29/18 16:38 Completed LACTATE, PLASMA [CHEM] Stat Lab 07/29/18 16:38 Completed PROTIME WITH INR [COAG] Stat Lab 07/29/18 16:38 Completed PTT [COAG] Stat Lab 07/29/18 16:38 Completed TROPONIN T Stat Lab 07/29/18 16:38 Completed 0.9% Sodium Chloride Inj [Ns] 1,000 ml Med 07/29/18 15:01 Discontinued IV 999 mls/hr Piperacillin/Tazobactam [Zosyn] 3.375 gm Med 07/29/18 16:03 Discontinued 0.9% Sodium Chloride Inj [Ns] 50 ml IV NOW Altered Mental Status Stat Oth 07/29/18 14:52 Ordered EKG [EKG] Stat Ther 07/29/18 14:52 Draft Result Diagrams: 07/29/18 16:38 07/29/18 16:38 - XRAY 1 XRAY Study: Chest Impression: See EMR Report (CHEST-PORTABLE - 07/29/2018 INDICATION: ams COMPARISON: 05/28/2018 FINDINGS: There is severe patient motion artifact. The exam should be repeated. IMPRESSION: Severe patient motion artifact. 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 Time Discussed: 17:42 Consult Disposition: Admit Departure - Departure Date of Disposition Decision: 07/29/18 Time of Disposition Decision: 18:38 DIAGNOSIS: Cirrhosis, Ascites, Hepatic encephalopathy, SIRS (systemic inflammatory response syndrome) Disposition: ADMITTED INPATIENT 09 Certified Medical Emergency: Emergent Condition: Stable Referrals and Follow-Ups: Jake Hilton [Primary Care Provider] - - Critical Care Note This patient required my direct & personal management of CC.: No Attestation - Physician/ JENNIFER Attestation The physician spent face to face time with patient:: Yes Advanced Practice Provider documentation review:: Supervising physician onsite and consulted in the evaluation and care of this patient. The physician did have a face to face encounter with the patient. This chart was documented by the indicated scribe, (Serena Dorado Scribe) and accurately reflects the services I performed and decisions made by me, Joan Mann MD, as attested by the provider's signature.
[2018-07-29 23:59] LABS: URINE SOURCE CATH
[2018-07-30 00:08] LABS: BILIRUBIN URINE NEGATIVE (NEGATIVE); BLOOD URINE NEGATIVE (NEGATIVE); COLOR YELLOW; GLUCOSE URINE NEGATIVE (NEGATIVE); KETONE URINE TRACE mg/dL (NEGATIVE); LEUKOCYTES URINE NEGATIVE (NEGATIVE); NITRITE URINE NEGATIVE (NEGATIVE); PROTEIN URINE NEGATIVE (NEGATIVE); SP GRAVITY URINE 1.017; TURBIDITY URINE CLEAR (CLEAR); UROBILINOGEN URINE NORMAL (NORMAL)
[2018-07-30 00:09] LABS: UR EPITHELIAL CELLS <10 /HPF (<10); URINE BACTERIA NEGATIVE /HPF; URINE WBC <10 /HPF (<10)
[2018-07-30 00:49] LABS: ACETAMINOPHEN < 1.2 ug/mL (10-30); SALICYLATES < 3.00 mg/dL (3-10)
--- NOTE | 2018-07-30 01:22 | ED EKG INTERP ---
This chart was entered by Karyna Quinteros Scribe, acting as scribe for Joan Mann MD. EKG Interpretation - EKG Time of EKG reading by physician:: 14:54 EKG Read and Signed by:: Joan Mann EKG Interpretation (*Must complete 3 of following elements*): Abnormal Rate: 117 Rhythm: sinus tachycardia QRS: other (low voltage) ST Wave: normal Attestation - Physician/ JENNIFER Attestation Patient care was provided by Advanced Practice Provider:: No The physician spent face to face time with patient:: Yes Advanced Practice Provider documentation review:: Supervising physician onsite and consulted in the evaluation and care of this patient. The physician did have a face to face encounter with the patient. This chart was documented by the indicated scribe, (Karyna Quinteros Scribe) and accurately reflects the services I performed and decisions made by me, Joan Mann MD, as attested by the provider's signature.
[2018-07-30 01:29] LABS: UR AMPHETAMINES QUAL NONE DETECTED (NONE DETECT); UR BARBITUATES QUAL NONE DETECTED (NONE DETECT); UR BENZODIAZEPIN QUAL PRESUMPTIVE POSITIVE (NONE DETECT); UR CANNABINOIDS QUAL NONE DETECTED (NONE DETECT); UR COCAINE QUAL NONE DETECTED (NONE DETECT); UR METHADONE QUAL NONE DETECTED (NONE DETECT); UR OPIATES QUAL NONE DETECTED (NONE DETECT); UR OXYCODONE QUAL PRESUMPTIVE POSITIVE (NONE DETECT); UR PCP QUAL NONE DETECTED (NONE DETECT)
[2018-07-30] MEDS ORDERED: LACTULOSE ONE ×2 (01:30→01:45)
[2018-07-30 02:16] LABS: CK INDEX 1.5 (0.0-2.5); CK-MB 4.18 ng/mL (0.0-5.0)
[2018-07-30 05:25] LABS: POTASSIUM 4.9 mmol/L (3.5-5.1)
[2018-07-30 05:26] LABS: ALBUMIN 2.4 g/dL (3.5-5.0); CALCIUM 8.5 mg/dL (8.8-10.2); CREATININE 1.3 mg/dL (0.7-1.2); MAGNESIUM 2.2 mg/dL (1.5-2.7); TOTAL BILIRUBIN 2.45 mg/dL (0.20-1.00); TOTAL PROTEIN 4.9 g/dL (6.3-8.3)
--- NOTE | 2018-07-30 06:26 | Diag Imaging Result Doc PS360 ---
CT HEAD/C-SPINE W/O CONTRAST - 07/29/2018 INDICATION: AMS,Found on the floor,unknown if fall occured COMPARISON: None FINDINGS: Head CT: The ventricles and sulci are normal in size and contour. No intracranial mass or hemorrhage. The skull is intact. The sinuses, mastoids, and middle ears are clear. Cervical spine: Alignment is anatomic. There is moderate disc degeneration at C4-5, C5-6 and C6-7. No fracture or subluxation. No significant central canal stenosis. IMPRESSION: Negative head CT. Cervical spondylosis. No acute injury. This exam was performed using automated exposure control, adjustment of mA or kV according to patient size, and/or use of iterative reconstruction technique Electronically signed by Uzair Gillette 07/30/2018 6:23 AM
--- NOTE | 2018-07-30 07:21 | Diag Imaging Result Doc PS360 ---
EXAM: CHEST-PORTABLE INDICATION: Encephalopathy TECHNIQUE: One view COMPARISON: 07/29/2018 FINDINGS: The patient is somewhat rotated toward the right. However, the motion artifact seen on the previous study is not present on the current study. There is mild increased opacity at the left lung apex. A developing infiltrate cannot completely be excluded. Consider PA and lateral radiograph follow-up. There is no discrete pleural fluid collection or pneumothorax. The cardiomediastinal silhouette and central vasculature are grossly unremarkable. IMPRESSION: Vague opacity at the left lung apex suggesting possible developing infiltrate. Consider follow-up PA and lateral radiograph. Electronically signed by Raheem Willingham 07/30/2018 7:19 AM
--- NOTE | 2018-07-30 07:23 | Diag Imaging Result Doc PS360 ---
EXAM: ELBOW COMPLETE LEFT INDICATION: Left elbow swelling,fall,AMS TECHNIQUE: 3 views COMPARISON: None. FINDINGS: There is a chronic appearing small bony fragment posterior to the olecranon process. There is no discrete fracture, dislocation, or significant intrinsic osseous lesion, otherwise. The visualized joint spaces are essentially unremarkable. The surrounding soft tissues are essentially unremarkable. IMPRESSION: No evidence of acute osseous abnormality. Electronically signed by Raheem Willingham 07/30/2018 7:21 AM
[2018-07-30 08:33] LABS: BASO# 0.02 X1000 (0.0-0.2); BASO% 0.2 % (0.0-0.8); EOS# 0.07 X1000 (0.0-0.7); EOS% 0.8 % (0.0-10.0); HEMATOCRIT 33.7 % (42.0-52.0); HEMOGLOBIN 11.7 g/dL (14.0-18.0); IMM GRAN# 0.02 X1000 (0.0-0.04); IMM GRAN% 0.2 % (0.0-0.5); LYMPH# 1.47 X1000 (1.2-3.4); LYMPH% 17.6 % (20.5-51.1); MCH 37.6 PG (27-31); MCHC 34.7 g/dL (33-37); MCV 108.4 FL (81-99); MONO# 0.97 X1000 (0.11-0.59); MONO% 11.6 % (1.7-9.3); MPV 10.5 FL (7.4-10.4); NEUT# 5.78 X1000 (1.4-6.5); NEUT% 69.6 % (42.2-75.2); PLT 93 X1000 (130-400); RBC 3.11 XMIL (4.7-6.1); RDW 14.6 % (11.5-14.5); WBC 8.33 X1000 (4.8-10.8)
[2018-07-30 09:29] LABS: CK INDEX 1.5 (0.0-2.5); CK-MB 3.97 ng/mL (0.0-5.0)
[2018-07-30] MEDS ORDERED: LOVENOX SUBQ SCH (10:30)
[2018-07-30] MEDS: LOVENOX SUBQ SCH ×2 (11:06→21:01)
[2018-07-30] MEDS: XIFAXAN PO SCH ×2 (11:07→21:01)
--- NOTE | 2018-07-30 15:46 | Diag Imaging Result Doc PS360 ---
US ABD PARACENTESIS W S/I - 07/30/2018 INDICATION: Abd. Distention,Ascites COMPARISON: None FINDINGS: The risks and benefits of the procedure were discussed with the patient. All questions were answered. Written and verbal consent was obtained. Ultrasound scanning demonstrated ascites. Overlying skin was prepped and draped in sterile fashion. Anesthesia was achieved with injection of 10 cc 1% lidocaine. The paracentesis catheter was advanced until the return of ascites fluid. 8 L was aspirated. The catheter was withdrawn intact. The patient reported no symptoms from the procedure. IMPRESSION: Successful and uncomplicated ultrasound-guided paracentesis. Electronically signed by Uzair Gillette 07/30/2018 3:44 PM
--- NOTE | 2018-07-30 15:46 | Diag Imaging Result Doc PS360 ---
US ABDOMEN-COMPLETE - 07/30/2018 INDICATION: Abd. Distention, Hx of Cirrhosis,Ascites COMPARISON: 05/29/2018 FINDINGS: The liver is extremely atrophic and nodular with cirrhosis. There is splenomegaly. The spleen measures 14 x 4.8 cm. There is moderate ascites. There is some amorphous sludge in the gallbladder. Common bile duct measures 3.4 mm. There may be a nonobstructing left renal stone measuring 6 mm. This is grossly stable from prior. There is no hydronephrosis. The right kidney is normal. Aorta, IVC, and main portal vein are patent. The pancreas is obscured. There is a large amount of ascites. IMPRESSION: Cirrhosis. Splenomegaly. Ascites. Gallbladder sludge. Nonobstructing left renal stone. Electronically signed by Uzair Gillette 07/30/2018 3:44 PM
[2018-07-30] MEDS: POLYSPORIN OINTMENT TOP PRN (16:05)
[2018-07-30] MEDS: LACTULOSE PO SCH (16:38)
[2018-07-30] MEDS ORDERED: PERCOCET-5 PO PRN (17:20)
--- NOTE | 2018-07-30 17:24 | HISTORY AND PHYSICAL ---
PRIMARY CARE PROVIDER: Dr. Jake Hilton. DATE AND TIME: 07/29/2018 at 2200. CHIEF COMPLAINT: Altered mental status. HISTORY OF PRESENT ILLNESS: Mr. Pretty is a 63-year-old, male who has recently been admitted to our service in May 2018. He does have a history of cirrhosis with ascites, hepatitis C, and diabetes mellitus type 2. Unfortunately, at this time, the patient is not able to provide any history of present illness or past medical history. I did call and speak with his sister, Linda Madrigal. She does help take care of him. She said that she saw him yesterday and spoke with him on the phone yesterday evening and he seemed like he was fine, he was acting like his normal self. She denied him reporting any complaints of anything, though she states that he was supposed to meet her today somewhere and when he did not show up and a few hours passed, she got concerned and they did go to his apartment to check on him and found him lying in the floor. They did call an ambulance and had him brought to the ER for further evaluation. At this time, we are unable to obtain a review of systems from the patient. Upon my evaluation in the ER. the patient was very drowsy. He was arousable to tactile stimulation, though he would only open his eyes and close them immediately back. Upon trying to get him to tell me his name, the only thing he would say is, "What?" He is not able to follow commands. The patient does look somewhat unkempt. He does have abrasions and skin tears noted on bilateral arms, especially in the elbow area. His left elbow is swollen slightly. he patient also does have a distended abdomen. He does have a history of having ascites and did recently have ten liters drawn off during a paracentesis. He has not had any known fever. He has been afebrile since arrival. He does not have any leukocytosis. Arterial blood gases showed a pH of 7.49, pCO2 26, and pO2 of 92 with oxygen saturation of 98.9. He does appear to have acute kidney injury. Creatinine is elevated at 1.4 with a BUN of 31 and GFR of 51. Total bilirubin is 2.59. AST is 52 and his ammonia level is elevated at 114. Urine drug screen was positive for oxycodone and benzodiazepines. Serum alcohol was 0. It does appear that the patient did previously have a prescription for oxycodone but does not show that he has gotten it filled recently in the external medication history. We did perform a CT head and C spine without contrast, which showed negative head CT. There was cervical spondylosis, though no acute injury. Chest x-ray did not show any acute abnormalities, though we are awaiting official Radiology over read. EKG showed sinus tachycardia at a rate of 117 with a QTc of 440. At this time, the patient will be admitted for further treatment and evaluation. REVIEW OF SYSTEMS: At this time we are unable to perform a review of systems with the patient due to his current condition and mentation. PAST MEDICAL HISTORY: 1. Hepatitis C. 2. Cirrhosis. 3. Colitis. 4. Diabetes mellitus type 2. 5. Previous history of alcohol abuse, though according to previous H and P, as well as his sister, he has not been drinking recently. 6. Gastroesophageal reflux disease. PAST SURGICAL HISTORY: Other than previous paracentesis, the patient has no other known past surgical history. SOCIAL HISTORY: According to his most recent H and P he did previously smoke a half a pack per day, though we are not able to confirm if he is still smoking at this time. He does have a previous history of alcohol abuse, though according to most recent records and his sister, he has not been drinking recently. There is no known history of illicit drug use. The patient's urine drug screen was positive for oxycodone and benzodiazepines, though according to his medication list he has recently had a prescription for oxycodone, though in the external medication history I cannot see where he has recently gotten it filled. FAMILY HISTORY: Positive for his sister having a history of cirrhosis and a nephew with cirrhosis as well. ALLERGIES: The patient has no known drug allergies. HOME MEDICATIONS: 1. Bumetanide 1 mg p.o. daily. 2. Folic acid 1 mg p.o. daily. 3. Remeron 30 mg p.o. daily. 4. Omeprazole 40 mg p.o. daily. 5. Oxy IR 10 mg p.o. q four hours p.r.n. 6. Aldactone 100 mg p.o. daily. DIAGNOSTIC DATA: White blood cell count is 8750, hemoglobin 11.6, hematocrit 33.5, platelet count 104,000. PT 15.1. INR is 1.1. PTT is 30. Sodium 134, potassium 5.2, chloride 100, serum bicarbonate 20, BUN 31, creatinine 1.4, GFR 51, glucose 96, calcium 9.1, magnesium 2.3, total bilirubin is 2.59, AST 52, ALT 30, alkaline phosphatase is 103, ammonia level is 114. CK 242. CK index 1.7. CK-MB is 4.2. Troponin less than 0.01. Plasma lactate was 4. Salicylate level less than 3. Acetaminophen level 1.2. Serum alcohol was 0. Urinalysis was obtained via catheter and was positive for trace of ketones and a few RBCs, otherwise negative for any signs of infection. Urine drug screen was positive for oxycodone and benzodiazepines. EKG showed sinus tachycardia at a rate of 117 with a QTc of 440. IMAGING STUDIES: 1. Chest x-ray shows no acute abnormalities. We are awaiting for the official Radiology over read. 2. CT head and C spine showed negative head CT. There was cervical spondylosis. There was no acute injury noted. 3. Left elbow x-ray did not appear to have any acute abnormalities. We are awaiting official Radiology over read as well. PHYSICAL EXAMINATION: VITAL SIGNS: Temperature 98.4, heart rate 69, respirations 16, blood pressure is 101/60 with a MAP of 69, oxygen saturation is 100% on room air. GENERAL: Mr. Pretty is a 63-year-old, male who is lying on the ER stretcher. He is drowsy at this time. He is only responsive to tactile stimulation for which he will open his eyes and close them back, though he is alert and oriented x0, he is not able to follow commands or answer questions. HEENT: The patient does appear to maybe have a slight ecchymosis noted to his left forehead. There does not appear to be any hematoma, abrasions, or lacerations. Pupils are four to five mm bilaterally, equal, round, and reactive to light. Oral mucosa is moist. NECK: Supple. Trachea midline. CARDIOVASCULAR: The patient has S1, S2 present. No murmurs or gallops appreciated with regular rate and rhythm. PULMONARY: The patient has symmetrical chest expansion bilaterally. Lung sounds are clear to auscultation in bilateral full grande. ABDOMEN: Slightly firm, is distended. Though the patient is altered at this time, he did not have any facial grimacing, guarding, or localization to pain noted upon palpation. Bowel sounds are present in all four quadrants. EXTREMITIES: No cyanosis noted but the patient does have some erythema and swelling noted to his left lower extremity. He also does have abrasion/skin tears noted to bilateral arms. There are more noted in the bilateral elbow areas. He did have some swelling noted to his left elbow. The radial pulses were 2+ bilaterally. Pedal pulses were difficult to auscultate, though were easily obtained with a venous Doppler. INTEGUMENTARY: The patient's skin is pink, warm, and dry except for above skin abnormalities mentioned in the extremities exam. NEUROLOGICAL: The patient is alert and oriented x0. He is not able to follow commands or answer questions. He is drowsy and only arousable with tactile stimulation. He will open his eyes and close them right back. At this time his neurological exam is limited. ASSESSMENT AND PLAN: 1. Encephalopathy. This could be multifactorial. I likely feel that given his ammonia level and his history of liver disease, this is hepatic encephalopathy, though the patient's urine drug screen was positive for oxycodone and benzodiazepines. This could be toxic in nature as well. The patient will be placed on CIC for close monitoring. Will do neuro checks every four hours. His head CT was negative for any acute intracranial abnormalities. We have ordered for him to receive a lactulose enema. 2. Cirrhosis. The patient does have a history of cirrhosis with ascites and has had to have paracentesis in the past. He did, according to a paracentesis ultrasound note on 07/22/2018, have 10.7 liters of straw-colored serous fluid drawn off during an ultrasound guided paracentesis. He does have ascites now. We have ordered an abdominal ultrasound for the morning as well as a paracentesis and peritoneal fluid studies. We have also placed a consult with Dr. Gallego with Gastroenterology. Will await their evaluation and further recommendations for management. 3. Ascites. Will continue with treatment as mentioned above in #2. 4. Acute kidney injury. Will continue to monitor this closely. We will avoid nephrotoxic medications and renally dosed medications as necessary. 5. Deep venous thrombosis prophylaxis. We will hold any anticoagulants at this time. The patient's platelet count is slightly on the low side at 104,000. He does have liver disease. We are awaiting a venous ultrasound of the left lower extremity, so we will not order any sequential compression devices or OPAL hose at this time. Once this result is back the patient may be able to have sequential compression devices placed if he is negative for deep venous thrombosis. We will continue to follow and await these results. The patient has been placed on CIC with telemetry. He will have vital signs q four hours. He will have strict intake and output. He will also have q four hour neuro checks and fingerstick blood sugars and vital signs. We have ordered wound care for his abrasions and skin tears. He will be n.p.o. until he becomes more alert and he is evaluated by Gastroenterology. His CK was elevated but his troponin was negative, though we will continue a series of cardiac enzymes. His EKG did not show any ST elevation or depression at this time. Further orders and recommendations pending hospital course, diagnostic studies, and physician evaluation. Dictated by MATT Bravo for Rigoberto Morse MD I have performed a face to face diagnostic evaluation. Labs/ Xrays- reviewed. Exam- chest- clear , Abd- distended, Neuro- altered. A/P- AMS, Cirrhosis- Admit, neurochecks, GI consult. Dr. Morse cc: Rigoberto Morse MD [facility]
[2018-07-31 05:25] LABS: BASO# 0.01 X1000 (0.0-0.2); BASO% 0.2 % (0.0-0.8); EOS# 0.16 X1000 (0.0-0.7); EOS% 2.6 % (0.0-10.0); HEMATOCRIT 27.7 % (42.0-52.0); HEMOGLOBIN 9.4 g/dL (14.0-18.0); LYMPH% 35.3 % (20.5-51.1); MCH 36.7 PG (27-31); MCHC 33.9 g/dL (33-37); MCV 108.2 FL (81-99); MONO# 0.73 X1000 (0.11-0.59); MONO% 11.7 % (1.7-9.3); MPV 9.9 FL (7.4-10.4); NEUT# 3.13 X1000 (1.4-6.5); NEUT% 50.2 % (42.2-75.2); PLT 83 X1000 (130-400); RBC 2.56 XMIL (4.7-6.1); RDW 14.7 % (11.5-14.5); WBC 6.23 X1000 (4.8-10.8)
[2018-07-31 05:30] LABS: ALB/GLOB RATIO 0.9; ALBUMIN 2.1 g/dL (3.5-5.0); CALCIUM 8.1 mg/dL (8.8-10.2); CREATININE 1.3 mg/dL (0.7-1.2); POTASSIUM 4.3 mmol/L (3.5-5.1); TOTAL BILIRUBIN 1.67 mg/dL (0.20-1.00); TOTAL PROTEIN 4.4 g/dL (6.3-8.3)
[2018-07-31] MEDS: POLYSPORIN OINTMENT TOP PRN (06:05)
[2018-07-31 07:16] LABS: BANDS 1 % (0-1); LYMPHS 23 % (21-51); MONO 5 % (1-9); SEGS 70 % (42-75)
[2018-07-31] MEDS: MORPHINE IV PRN ×2 (08:41→20:23)
[2018-07-31] MEDS: LOVENOX SUBQ SCH ×2 (08:42→20:23)
[2018-07-31] MEDS: LACTULOSE PO SCH ×3 (08:42→17:04)
[2018-07-31] MEDS: XIFAXAN PO SCH ×2 (08:42→20:23)
--- NOTE | 2018-07-31 13:28 | PROGRESS NOTE ---
DATE: 07/31/2018 SUBJECTIVE: Patient is definitely more alert today in comparing with yesterday. She reports no nausea. No vomiting. Less abdominal distention. No acute issues noted as per nursing staff overnight. OBJECTIVE: Vital Signs: Temperature 98.2 degrees, heart rate 87, respiratory rate 16, blood pressure 91/49, and O2 saturation 97% on room air. General: This is a chronically ill-looking, malnourished 63-year-old male lying in bed in no acute distress. HEENT: Head is normocephalic and atraumatic. Mucous membranes dry. Neck: No JVD noted. No carotid bruits. No lymphadenopathy. No thyromegaly. Cardiovascular: S1, S2 heard. No murmurs, gallops, or rubs. Regular rate and rhythm. Respiratory: Clear bilaterally to auscultation. No work of breathing or using accessory muscles. Abdomen: Soft. Definitely less distended/ no ascites noted. No signs of peritoneal irritation. Extremities: The patient has abrasion on skin tears noted on bilateral arms. They are more noted in bilateral elbows. Peripheral pulses present in both legs. Neurological: Patient is definitely more alert and oriented. Follows commands. Speech is coherent. Moves all 4 extremities spontaneously. LABORATORY DATA: White cell count 6.23. Hemoglobin 9.4, hematocrit 27.7, and platelets 83,000 with a BMP that shows creatinine 1.3. Sodium 133. Total bilirubin 1.67. ASSESSMENT AND PLAN: 1. Hepatic encephalopathy. That condition is getting definitely much better. After we removed 8 L of ascitic fluid yesterday, he is feeling much better. He is on lactulose and rifaximin. The ammonia level has decreased to 111 to 91. Even though, it is still very high clinically this patient looks much better. At this point, we will continue with the same management. 2. Liver cirrhosis with ascites. As we mentioned before yesterday, we needed to do a therapeutic paracentesis. We were able to remove 8 L of ascitic fluid. Gastroenterology has been consulted. We will follow recommendations. 3. Acute kidney injury. Creatinine is almost back to normal. We will continue to monitor BMP daily. 4. 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 There is no preliminary report so we will continue to monitor CBC daily. 5. Disposition: I think this patient is much more stable now. We are going to send him to a regular floor today. cc: Jesus Daley MD
--- NOTE | 2018-07-31 23:55 | PROVIDER PROGRESS NOTE ---
Progress Note SUBJECTIVE: No acute overnight events. Patient much more alert today than yesterday. No fever, CP, SOB. Abdominal pain improved after paracentesis yesterday. No rectal bleeding. OBJECTIVE: Last Vital Signs Temp 98 F 07/31/18 23:44 Pulse 95 H 07/31/18 23:44 Resp 15 07/31/18 23:44 BP 105/59 07/31/18 23:44 Pulse Ox 96 07/31/18 23:44 Height 5 ft 10 in Weight 135 lb GEN: cachexia, NAD HEENT: anicteric, MMM NECK: supple, no jvd CV: RRR, no murmurs PULM: CTAB anteriorly ABD: protuberant, minimally TTP throughout, rebound or guarding, BS present, ascites improved EXT: LLE swelling, no C/C SKIN: skin tears and bruising on extremities NEURO: improved asterixis, follows commands LABS: 07/31/18 07/31/18 07/31/18 00:27 05:00 05:00 WBC Hgb Plt Count Sodium 133 L Potassium 4.3 Chloride 103 Carbon Dioxide 24 L BUN 40 H Creatinine 1.3 H Glucose 88 POC Glucose 107 H Total Bilirubin 1.67 H AST 50 H ALT 24 Alkaline Phosphatase 62 Ammonia 91 H Total Protein 4.4 L Albumin 2.1 L 07/31/18 05:00 WBC 6.23 Hgb 9.4 L D Plt Count 83 L Sodium Potassium Chloride Carbon Dioxide BUN Creatinine Glucose POC Glucose Total Bilirubin AST ALT Alkaline Phosphatase Ammonia Total Protein Albumin Ascites was accidentally thrown out yesterday. Therefore, fluid analysis could not be done A/P: Mr. Lito Pretty is a 63 year old man with history of decompensated HCV cirrhosis who presents with worsening ascites who presented with AMS, SUJIT, elevated lactate, SIRS found to have hepatic encephalopathy improved with lactulose/rifaximin. Patient has LVP yesterday with removal of 8L #SIRS: continue empiric 5 day course of oral ciprofloxacin for presumed SBP #Decompensated HCV cirrhosis: CP-C - Cirrhosis: 2/2 to HCV; trend LFTs daily, INR - Ascites: s/p LVP without albumin administration; low Na diet, trend I/O, daily weights - PSE: continue lactulose and rifaximin; no need to trend ammonia as PSE should be followed clinically at ammonia does not correlate with degree of encephal opathy - EV: no overt bleeding; patient will need EGD for varices screening as outpatient - HCC: negative on imaging - OLT: follow at [facility]; not on transplant list #SUJIT: holding diuretics, renally dose meds; trend Cr daily #HCV: continue home Epclusa #Protein calorie malnutrition: continue folic acid, recommend high protein calorie diet, ensure with meals #Anemia: no overt bleeding; will need EGD/colonoscopy as outpatient #GERD: controlled; continue PPI #NIDDM2: hold metformin, SSI #Tobacco abuse: encourage smoking cessation Thank you for this consult. Will follow with you.
[2018-08-01 05:45] LABS: BASO% 0.3 % (0.0-0.8); EOS% 4.4 % (0.0-10.0); HEMATOCRIT 31.6 % (42.0-52.0); HEMOGLOBIN 10.7 g/dL (14.0-18.0); IMM GRAN% 0.3 % (0.0-0.5); LYMPH# 1.96 X1000 (1.2-3.4); LYMPH% 29.9 % (20.5-51.1); MCHC 33.9 g/dL (33-37); MCV 109.3 FL (81-99); MONO% 11.4 % (1.7-9.3); MPV 10.5 FL (7.4-10.4); NEUT# 3.52 X1000 (1.4-6.5); NEUT% 53.7 % (42.2-75.2); PLT 88 X1000 (130-400); RBC 2.89 XMIL (4.7-6.1); RDW 14.7 % (11.5-14.5); WBC 6.56 X1000 (4.8-10.8)
[2018-08-01 05:46] LABS: BASO# 0.02 X1000 (0.0-0.2); EOS# 0.29 X1000 (0.0-0.7); IMM GRAN# 0.02 X1000 (0.0-0.04); MONO# 0.75 X1000 (0.11-0.59)
[2018-08-01 05:51] LABS: INR 1.18
[2018-08-01 06:03] LABS: AGAP 7; ALB/GLOB RATIO 0.9; ALBUMIN 2.2 g/dL (3.5-5.0); ALKALINE PHOSPHATASE 81 U/L (32-122); BUN 33 mg/dL (8-22); CALCIUM 8.4 mg/dL (8.8-10.2); CHLORIDE 105 mmol/L (98-107); COSMO 276; CREATININE 1.1 mg/dL (0.7-1.2); ESTIMATED GFR > 60; GLUCOSE 112 mg/dL (70-104); GOT 50 U/L (10-34); GPT 25 U/L (10-44); POTASSIUM 4.3 mmol/L (3.5-5.1); SODIUM 134 mmol/L (136-145); TCO2 22 mmol/L (25-35); TOTAL BILIRUBIN 1.27 mg/dL (0.20-1.00); TOTAL PROTEIN 4.6 g/dL (6.3-8.3)
[2018-08-01] MEDS: ALDACTONE PO SCH ×2 (06:13→09:32)
[2018-08-01] MEDS: REMERON PO SCH ×2 (06:14→09:32)
[2018-08-01] MEDS: FOLIC ACID PO SCH ×2 (06:14→09:32)
[2018-08-01] MEDS: PRILOSEC PO SCH ×2 (06:14→09:32)
[2018-08-01] MEDS: PATIENT'S OWN MED PO SCH ×2 (06:14→09:35)
[2018-08-01] MEDS: LACTULOSE PO SCH ×3 (09:32→17:37)
[2018-08-01] MEDS: CIPRO PO SCH ×2 (09:32→22:42)
[2018-08-01] MEDS: MORPHINE IV PRN ×4 (09:32→22:42)
[2018-08-01] MEDS: CENTRUM SILVER PO SCH (09:32)
[2018-08-01] MEDS: XIFAXAN PO SCH ×2 (09:33→22:41)
[2018-08-01] MEDS ORDERED: ZANTAC IV SCH (10:00)
[2018-08-01] MEDS: ZANTAC 50 MG in NS 50 ML IV SCH ×2 (11:41→22:41)
--- NOTE | 2018-08-01 15:26 | PROGRESS NOTE ---
DATE: 08/01/2018 SUBJECTIVE: The patient is a little more alert, awake. Oriented to person and place, and recognized his family who is at bedside. OBJECTIVE: Vital Signs: Temperature 97.8 degrees, heart rate 108, respiratory rate 14, blood pressure 98/65, O2 saturation 95% on room air. General Examination: This is a chronically ill- looking, malnourished and cachectic, 63-year-old, male, lying in bed, in no acute distress. Cardiovascular Examination: S1 and S2 heard. No murmurs, gallops, or rubs. Regular rate and rhythm. Respiratory Examination: Clear bilaterally to auscultation. No work of breathing or using accessory muscles. Abdomen: Soft. Less distended. No ascites noted. No signs of peritoneal irritation. Extremities: The patient has abrasion and skin tears noted on bilateral arms, also on bilateral elbows as well. Peripheral pulses present in both legs. Neurological Examination: The patient is awake but is slow, followed commands. Speech is coherent. He moves 4 extremities. Laboratory Data: White cell count 6.56, hemoglobin 10.7, hematocrit 31.6, platelets 88,000. Normal BMP. ASSESSMENT AND PLAN: 1. Hepatic encephalopathy. That condition is more stable. We will continue with lactulose and rifaximin. We will hold lactulose if 3 or more bowel movements per day. 2. Liver cirrhosis with ascites. After we removed 8 L of ascitic fluid with therapeutic paracentesis, the patient is feeling much better. Gastroenterology is following this patient. Follow recommendations. 3. Coagulopathy. We are checking INR daily. No signs of bleeding. 4. Thrombocytopenia related to alcoholic liver cirrhosis. Platelets are just slightly low at 88,000 today. We will continue to monitor CBC. 5. Deep venous thrombosis. We have checked a Doppler ultrasound on this patient because of leg swelling and we found a large blood clot that started in the groin area and goes down into the leg. In that regard, we have started Lovenox 1 mg/kg every 12 hours. Considering he is more prone to develop bleeding and because we are not sure which of those agents, either heparin, Arixtra, and Lovenox is better for this patient, we have consulted hematology/oncology. 6. Acute kidney injury, resolved. 7. Possible spontaneous bacterial peritonitis. We will continue with ciprofloxacin for 5 days. 8. Possible esophageal varices. Gastroenterology has recommended outpatient evaluation for that. 9. Disposition. The patient is still sick so we are going to keep him in the hospital over the weekend and will make a final decision on Sunday. cc: Jesus Daley MD MTDD
--- NOTE | 2018-08-01 15:51 | GASTROENTEROLOGY PROGRESS NOTE ---
DATE: 08/01/2018 ATTENDING PHYSICIAN: Dr. Velarde. PRIMARY DOCTOR: Dr. Jaek Hilton. SUBJECTIVE: The patient is resting in bed. He denies any nausea or vomiting. He had a brown stool this morning. He has eaten 25% of his breakfast this morning. He is on full dose Lovenox 60 mg b.i.d. for DVT. The patient's risk of GI bleeding is high because of thrombocytopenia and decompensated liver disease. PHYSICAL EXAMINATION: Vital signs: Temperature 97.8 degrees, pulse of 108, respiratory rate of 14, blood pressure 98/65, satting 98% on room air. Body weight of 135 pounds. BMI 19.4 kg/m2. General Appearance: Thinly built, lying in bed, in no acute distress. HEENT: Pale conjunctiva. Mild icterus. Pupils equal, reactive to light and accommodation. Neck: Supple. Abdomen: Soft. No rebound or guarding. Extremities: No cyanosis, clubbing. There is swelling in the left lower extremity. Neurologic: Neuro harkins, he is alert, awake, and answers questions. Skin: Skin has bruises on the extremities. LABS: Hemoglobin and hematocrit is 10.7 and 31.6, white count of 6.56, platelet count of 88. INR 1.18. PT of 16. Sodium 130, potassium 4.3, chloride 105, bicarbonate 22, anion gap 7. BUN of 33, creatinine 1.1. Glucose of 112, calcium is 8.4, total bilirubin is 1.27. AST 50, ALT 25, alkaline phosphatase 81, total protein is 4.6, albumin of 2.2. Ammonia of 95. X-RAYS: Abdominal ultrasound done on 07/30 showed evidence of cirrhosis, splenomegaly, ascites, gallbladder sludge, nonobstructing left renal stone. IMPRESSION AND PLAN: 1. Decompensated hepatitis C cirrhosis. Continue to follow the liver enzymes. Try to avoid any hepatotoxic drugs. 2. Ascites. He had a large volume paracentesis. Continue low sodium diet and continue to follow daily weights. 3. Hepatic encephalopathy. He will continue lactulose, Xifaxan. His mental status is improved. 4. Esophageal variceal screen will be done as an outpatient with outpatient esophagogastroduodenoscopy. 5. The patient will continue to follow up with [facility] as before. He needs to evaluate for transplant. 6. Acute kidney injury. Holding diuretics. Continue to follow the renal functions. 7. Hepatitis C continue on Epclusa as before. 8. Protein calorie malnutrition. He is on Ensure with meals and continue multivitamin and folic acid and high-protein diet. 9. Anemia. We will continue to watch for now. Transfuse as needed. 10. Reflux disease. Continue proton pump inhibitors. We will have to switch his proton pump inhibitors to Zantac twice a day as possible interaction with Epclusa. 11. Diabetes type 2. Hold metformin and continue sliding scale insulin. 12. Deep vein thrombosis in the lower extremity. He is on Lovenox full strength, but the risk of gastrointestinal bleeding is high. This was discussed with the patient's primary care team and all questions answered. Please call us with any further questions. cc: MD Jesus De Dios MD
[2018-08-01] MEDS: NICODERM PATCH TD SCH (17:36)
[2018-08-01] MEDS: ICAR-C PO SCH (22:42)
[2018-08-02] MEDS: MORPHINE IV PRN ×6 (04:25→22:20)
[2018-08-02] MEDS: ZANTAC 50 MG in NS 50 ML IV SCH ×3 (04:26→18:27)
[2018-08-02 07:32] LABS: BASO# 0.04 X1000 (0.0-0.2); BASO% 0.5 % (0.0-0.8); EOS# 0.52 X1000 (0.0-0.7); EOS% 6.4 % (0.0-10.0); HEMATOCRIT 36.4 % (42.0-52.0); HEMOGLOBIN 12.3 g/dL (14.0-18.0); IMM GRAN# 0.03 X1000 (0.0-0.04); IMM GRAN% 0.4 % (0.0-0.5); LYMPH# 1.97 X1000 (1.2-3.4); LYMPH% 24.1 % (20.5-51.1); MCH 37.3 PG (27-31); MCHC 33.8 g/dL (33-37); MCV 110.3 FL (81-99); MONO# 1.22 X1000 (0.11-0.59); MPV 10.4 FL (7.4-10.4); NEUT# 4.38 X1000 (1.4-6.5); NEUT% 53.6 % (42.2-75.2); PLT 91 X1000 (130-400); RDW 14.7 % (11.5-14.5); WBC 8.16 X1000 (4.8-10.8)
[2018-08-02] MEDS: ZOFRAN IV PRN (07:37)
[2018-08-02 07:42] LABS: INR 1.07; PROTIME 14.7 Seconds (11.0-16.0)
[2018-08-02 07:44] LABS: AGAP 8; ALBUMIN 2.3 g/dL (3.5-5.0); ALKALINE PHOSPHATASE 80 U/L (32-122); BUN 27 mg/dL (8-22); CALCIUM 8.1 mg/dL (8.8-10.2); CHLORIDE 102 mmol/L (98-107); COSMO 268; CREATININE 1.1 mg/dL (0.7-1.2); ESTIMATED GFR > 60; GLUCOSE 128 mg/dL (70-104); GOT 53 U/L (10-34); GPT 24 U/L (10-44); POTASSIUM 4.9 mmol/L (3.5-5.1); SODIUM 130 mmol/L (136-145); TCO2 20 mmol/L (25-35); TOTAL BILIRUBIN 1.38 mg/dL (0.20-1.00); TOTAL PROTEIN 4.7 g/dL (6.3-8.3)
[2018-08-02] MEDS ORDERED: LOVENOX SUBQ SCH (09:00)
[2018-08-02] MEDS: REMERON PO SCH (09:14)
[2018-08-02] MEDS: LACTULOSE PO SCH ×3 (09:14→17:39)
[2018-08-02] MEDS: FOLIC ACID PO SCH (09:14)
[2018-08-02] MEDS: CIPRO PO SCH ×2 (09:14→22:21)
[2018-08-02] MEDS: XIFAXAN PO SCH ×2 (09:14→22:21)
[2018-08-02] MEDS: ICAR-C PO SCH ×2 (09:14→22:21)
[2018-08-02] MEDS: CENTRUM SILVER PO SCH (09:14)
[2018-08-02] MEDS: ALDACTONE PO SCH (09:14)
[2018-08-02] MEDS: PATIENT'S OWN MED PO SCH (09:15)
[2018-08-02] MEDS: NICODERM PATCH TD SCH (09:16)
--- NOTE | 2018-08-02 10:30 | GASTROENTEROLOGY CONSULTATION ---
DATE: 07/30/2018 REASON FOR CONSULTATION: Decompensated cirrhosis with ascites and altered mental status. HISTORY OF PRESENT ILLNESS: Mr. Lito Pretty is a 63 -year-old gentleman with past medical history of decompensated HCV cirrhosis treated with Epclusa complicated by ascites followed at [facility] who presented overnight with altered mental status. History obtained from medical record as the patient is either refusing interaction or is confused and lethargic. Per the record the patient underwent a diagnostic and therapeutic paracentesis on 07/22/2018 with removal of 10.7 liters of ascites. There was no fluid analysis of the fluid at the time. On presentation he was found to have a temperature of 98.4, heart rate of 114, respiratory rate of 16, blood pressure of 122/70, O2 saturation of 93%. Blood gas ABG of pH 7.49, pCO2 26, pO2 92. He was given a liter bolus of fluid as well as Zosyn empirically and admitted with a diagnosis of hepatic encephalopathy, ascites and SIRS. He received 300 mL lactulose enema in the emergency room. REVIEW OF SYSTEMS: Limited secondary to altered mental status. PAST MEDICAL HISTORY: 1. Decompensated HCV cirrhosis treated with Epclusa. 2. Ascites. 3. Gastroesophageal reflux disease. 4. Noninsulin dependent diabetes mellitus. 5. Chronic headaches. 6. Tobacco abuse. PAST SURGICAL HISTORY: None. FAMILY HISTORY: No family history of liver disease or GI malignancy. SOCIAL HISTORY: Active smoker. He has been smoking for the last 40 years. Remote alcohol abuse, last drink was 30 years ago per report. Remote opioid abuse. MEDICATIONS: Per chart include: 1. Folic acid. 2. Omeprazole 40 mg once daily. 3. Epclusa unknown last dose. 4. Lasix 40 mg once daily. 5. Oxycodone 10 mg q 4 hours p.r.n. ALLERGIES: No known drug allergies. PHYSICAL EXAMINATION: VITAL SIGNS: Temperature 97.3 degrees, heart rate 94, respiratory rate 12, blood pressure 100/46, O2 saturation 95% on room air. GENERAL: Patient is sleepy but arousable. Answers questions intermittently. Disheveled, unkempt. No acute distress. Thin. HEENT: Sclera anicteric. Moist mucous membranes. NECK: No jugular venous distention or lymphadenopathy. CARDIAC: Regular rate and rhythm. No murmur. LUNGS: Clear to auscultation bilaterally. ABDOMEN: Distended, tense, nontender. Bowel sounds are present. Notable ascites and dilated abdominal wall veins. EXTREMITIES: He has swelling in the left lower extremity. No cyanosis, clubbing or edema on the right. NEURO: Patient is moving all his extremities symmetrically. He does have notable asterixis. SKIN: Bruises on his upper extremities as well as his lower extremities. He does have several skin tears and bandages on his bilateral elbows. LABORATORY DATA: White count of 8.3, hemoglobin 11.7, platelets of 93,000. INR 1.1. Sodium 135, potassium 4.9 from 5.2, chloride of 104, bicarb 20, BUN 34, creatinine 1.3 from a baseline of 1.0. Glucose 93. Total bilirubin of 2.45. AST 56, ALT 26, alkaline phosphatase 78. Ammonia 114. CK 258. Troponin negative x 2. Total protein 4.9, albumin 2.4. Lactate 1.7 from 4.0 on admission. Urinalysis positive for trace ketones and red blood cells. U-Tox positive for oxycodone, negative for Tylenol, alcohol. Positive for benzodiazepines. IMAGING: Left elbow films show no acute osseous abnormality. Head CT, cervical spine: Negative head CT. Cervical spondylosis. No acute injury. Chest x-ray: Vague opacity in the left lung apex suggesting possible developing infiltrate, consider follow up PA and lateral radiograph. ASSESSMENT/PLAN: Mr. Lito Pretty is a 63 -year-old gentleman with past medical history of decompensated HCV cirrhosis on Epclusa complicated by ascites and now hepatic encephalopathy. His labs are notable to elevated lactate, creatinine, ammonia and low bicarb. He meets SIRS criteria. His vitals signs notable for tachycardia, no fever. Exam positive for asterixis, abdominal distention with ascites and skin breakdown in his upper extremities as well as bruising throughout. PROBLEM: 1. Altered mental status secondary to hepatic encephalopathy, likely precipitated by volume depletion versus infection. Diagnostic paracentesis has been ordered. We will obtain blood cultures. Chest x-ray shows question development of infiltrate in the left upper lung grande. He has received empiric Zosyn, consider covering empirically for SBP plus or minus pneumonia until we are able to rule out with cultures and ascites fluid analysis. We will start Lactulose 30 mL p.o. t.i.d. Continue Rifaximin 550 mg twice a day. 2. Ascites. Diagnostic paracentesis has been ordered. Recommend giving 8 grams of albumin for every liter removed greater than 3 liters approximately. 3. Left lower extremity swelling. Patient had ultrasound of the left lower extremity that shows a deep venous thrombosis. He is now on therapeutic Lovenox. 4. Systemic inflammatory response syndrome. Again recommend culturing his urine as well as ascitic fluid, blood cultures. Consider empiric antibiotics. 5. Anemia. This is chronic. No overt bleeding. Patient has not had esophagogastroduodenoscopy or colonoscopy for varices screening or colonic polyps, respectively. We will hold off at this time. 6. Gastroesophageal reflux disease. Continue proton pump inhibitor. 7. Noninsulin dependent diabetes mellitus. We are holding his home metformin. Recommend sliding scale insulin as needed. 8. Tobacco abuse. Encouraged smoking cessation. 9. Acute kidney injury. Holding diuretics, renally dosed medications. Again albumin to be given with paracentesis should more than 3 liters be removed. 10.HCV. Patient was on Epclusa. Unclear whether he has complete this course of therapy. We will reassess once patient's mental status improves or able to get information from family. Thank you for his consultation. Please call with any questions or concerns. We will follow with you. KARIS
--- NOTE | 2018-08-02 16:12 | PROGRESS NOTE ---
DATE: 08/02/2018 SUBJECTIVE: Patient continues to be awake today. Oriented to person, place, no complaints at this time. OBJECTIVE: Vital Signs: Temperature 98.3 degrees, heart rate 102 respiratory rate 18, blood pressure 107/52, O2 saturation 98% on room air. General: This is a chronically ill appearing, malnourished and cachectic 63-year-old male, lying in bed, in no acute distress. Cardiovascular: S1, S2 heard. No murmurs, gallops, or rubs. Regular rate and rhythm. Respiratory: Clear bilaterally to auscultation. No work of breathing or using accessory muscles. Abdomen: Soft, a little bit distended, mild ascites noted. No signs of peritoneal irritation. Extremities: Patient has abrasions and skin tears noted in bilateral arms and bilateral elbows. Peripheral pulses present in both legs. Neurological: Patient awake, a little bit slow. Follows commands. Speech is coherent. Moves 4 extremities. LABORATORY DATA: White cell count 8.63, hemoglobin 12.3, hematocrit 36.4, platelets 91,000 with normal BMP. ASSESSMENT AND PLAN: 1. Hepatic encephalopathy. More stable with rifaximin and lactulose. We will continue with the same management. 2. Liver cirrhosis with ascites. That condition is stable. Of course, he has mild ascites at this point. Two days ago we have removed the 8 L of ascitic fluid. Gastroenterology is following. We will continue to monitor. 3. Possible spontaneous bacterial peritonitis. We will continue with ciprofloxacin for a total of 5 days as per recommendation of gastroenterology. 4. Coagulopathy. We will continue to check INR daily. No signs of bleeding. 5. Thrombocytopenia. Platelets are relatively stable around 80s and 90s. We will continue to monitor complete blood count. 6. Deep venous thrombosis of the left leg. Lovenox has been started but we have decreased the dose because of his liver dysfunction and the fact that this is more prone to develop bleeding. We have consulted Hematology Oncology for recommendations regarding anticoagulation in a patient with advanced liver cirrhosis. We will see what they have to say. 7. Acute kidney injury resolved. 8. Possible esophageal varices. Patient will be seen as an outpatient to have an endoscopy. 9. Disposition we will continue to monitor this patient closely. cc: Jesus Daley MD
[2018-08-02] MEDS: XARELTO PO SCH (17:39)
--- NOTE | 2018-08-02 19:50 | Extremity Venous Study ---
PROCEDURE NAME: Venous U/S Left Leg - 07/30/2018 LEFT LOWER EXTREMITY VENOUS DUPLEX AND COLOR FLOW IMAGING STUDY: Using a GE Vivid E9 ultrasound system with a 9L-D transducer. REFERRING PHYSICIAN: Dr. Bridgett Morse. This is a 63-year-old male. 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 INDICATIONS: Pain and edema left lower extremity suggestive of deep venous thrombosis. FINDINGS: The left common femoral vein and its branches, deep and superficial femoral veins were satisfactorily imaged. There is an acute clot involving the left common femoral vein and extending distally into the left thigh involving both the deep and superficial femoral veins. It also extends into the left popliteal veins and the small veins below the left knee. There is no flow in these deep veins. The superficial veins were compressible left lower extremity. INTERPRETATION: Acute long segment deep venous thrombosis involving the deep veins of the left lower extremity. cc: Palmira Lira MD
--- NOTE | 2018-08-02 19:59 | HEMO/ONC CONSULTATION ---
DATE: 08/02/2018 ADMITTING PHYSICIAN: Dr. Rigoberto Morse. REQUESTING PHYSICIAN: Dr. Rigoberto Morse. We appreciate this consult. CHIEF COMPLAINT: Anticoagulation for DVT in patient with decompensated cirrhosis. HISTORY OF PRESENT ILLNESS: Mr. Lito Pretty is a pleasant 63-year-old male with a history of hepatitis C, diabetes mellitus type 2, ETOH abuse and decompensated cirrhosis with ascites, hepatic encephalopathy and questionable esophageal varices. The patient was admitted on 07/30/2018 secondary to altered mental status most likely related to encephalopathy. The patient was found to have an elevated ammonia level at that time. Urine drug screen was positive for oxycodone and benzodiazepines. Additionally, the patient was found to have significant ascites and underwent paracentesis. The patient did have swelling and tenderness to his left lower extremity, underwent ultrasound which revealed a left lower extremity DVT from the femoral region to the popliteal region. The patient was placed on therapeutic Lovenox and we are consulted as the patient is in need of long-term anticoagulation with a history of decompensated cirrhosis with thrombocytopenia. PAST MEDICAL HISTORY: As in HPI. PAST SURGICAL HISTORY: No known surgical history. SOCIAL HISTORY: The patient smokes 1/2 pack cigarettes daily. He has a history of long-term alcohol abuse but reports that he has recently quit. Additionally the patient's urine drug screen was positive for oxycodone and benzodiazepine. FAMILY HISTORY: Negative for hematologic or oncologic disease. MEDICATIONS ON ADMISSION: 1. Bumetanide. 2. Folic acid. 3. Remeron. 4. Omeprazole. 5. OxyIR. 6. Aldactone. ALLERGIES: Patient has no known drug allergies. REVIEW OF SYSTEMS: A 14 point review of systems was obtained and is negative except as mentioned in HPI. PHYSICAL EXAM: Mr. Pretty is a 63-year-old male who is extremely cachectic lying supine in bed in no immediate distress.HEENT: Normocephalic, atraumatic. Mucous membranes are pink and moist. Sclerae is anicteric. Extraocular movements intact. Neck: Supple. Lungs: Clear to auscultation bilaterally. Chest expansion equal bilaterally. CV: S1, S2 is heard without murmur, rub or gallop. The patient is tachycardic. Abdomen: Soft, nondistended, nontender. Bowel sounds positive all quadrants. No rebound or guarding is noted. Extremities: Without clubbing or cyanosis. He does have 2+ left lower extremity edema. Dermatologic: No rashes or bruises. He does have multiple skin tears to upper extremities. Neurologic: The patient is awake, alert. He is somewhat slow to respond. He has no overt focal deficit. LABORATORY DATA: PT 14.7, INR 1.07, on 07/29 PTT was 30.0. Hemoglobin 12.3, hematocrit 36.4, white blood cell count is 8.16, platelets are 91,000, sodium 130, potassium 4.9, chloride 102, CO2 is 20, BUN 27, creatinine 1.1 and glucose is 128, bilirubin 1.38, alkaline phosphatase 80, AST 53, ALT 24. IMAGING STUDIES: Ultrasound of the left lower extremity reveals DVT from the pelvic region to the popliteal region. ASSESSMENT AND PLAN: 1. Deep vein thrombosis of the left lower extremity currently on therapeutic Lovenox. Will start Xarelto 20 mg daily and discontinue Lovenox at this time. We will initiate a hypercoagulable workup. 2. Decompensated cirrhosis per hospitalist. 3. Hepatic encephalopathy currently on Xifaxan and lactulose. 4. Ascites status post paracentesis. 5. Thrombocytopenia secondary to #2. 6. We will follow along with you and make further recommendations pending outcomes. The above reflects the history, exam, assessment plan of Dr. Gambino. Dictated by MATT Carreon for Jermaine Gambino MD cc: MATT Carreon MD
--- NOTE | 2018-08-03 00:38 | PROVIDER PROGRESS NOTE ---
Progress Note SUBJECTIVE: No acute overnight events. Afebrile. No N/V. Patient reports significant improvement in symptoms. He had 3 non-bloody bowel movements yesterday. No melena, confusion, abdominal pain. OBJECTIVE: Last Vital Signs Temp 97.7 F 08/02/18 19:59 Pulse 118 H 08/02/18 22:59 Resp 16 08/02/18 22:59 BP 131/71 08/02/18 19:59 Pulse Ox 96 08/02/18 22:59 Height 5 ft 10 in Weight 135 lb GEN: cachexia, NAD HEENT: anicteric, MMM NECK: supple, no jvd CV: RRR, no murmurs PULM: CTAB anteriorly ABD: soft minimally TTP throughout, rebound or guarding, BS present, ascites improved EXT: no cce SKIN: skin tears and bruising on extremities improved NEURO: no asterixis, nonfocal 08/02/18 08/02/18 08/02/18 07:02 07:02 07:02 WBC 8.16 Hgb 12.3 L Plt Count 91 L INR 1.07 Sodium 130 L Potassium 4.9 Chloride 102 Carbon Dioxide 20 L BUN 27 H Creatinine 1.1 Glucose 128 H Total Bilirubin 1.38 H AST 53 H ALT 24 Alkaline Phosphatase 80 Total Protein 4.7 L Albumin 2.3 L A/P: Mr. Lito Pretty is a 63 year old man with history of decompensated HCV cirrhosis who presented with worsening ascites, AMS, SUJIT, elevated lactate, SIRS found to have hepatic encephalopathy improved with lactulose/rifaximin. Patient has LVP yesterday with removal of 8L. Fluid studies were not done, and patient started on empiric therapy for SBP. Tachycardic. #SIRS: improved; continue empiric 5 day course of oral ciprofloxacin for presumed SBP #Decompensated HCV cirrhosis: CP-C - Cirrhosis: 2/2 to HCV; trend LFTs daily, INR - Ascites: s/p LVP without albumin administration; low Na diet, trend I/O, daily weights - PSE: improved; continue lactulose and rifaximin; titrate lactulose for 2-3 BMs daily, hold next dose for >4 BMs in 24 hours - EV: no overt bleeding; patient will need EGD for varices screening as outpatient - HCC: negative on imaging - OLT: follow at [facility]; not on transplant list #SUJIT: improved; holding diuretics, renally dose meds; trend Cr daily #HCV: continue home Epclusa #Protein calorie malnutrition: continue folic acid, high protein calorie diet, ensure with meals #Anemia: no overt bleeding; will need EGD/colonoscopy as outpatient #GERD: controlled; continue PPI #NIDDM2: holding metformin, SSI #Tobacco abuse: encouraged smoking cessation Thank you for this consult. Will follow with you.
[2018-08-03] MEDS: ZOFRAN IV PRN ×4 (00:59→22:28)
[2018-08-03] MEDS: ZANTAC 50 MG in NS 50 ML IV SCH ×2 (02:41→12:27)
[2018-08-03] MEDS: MORPHINE IV PRN ×4 (02:47→15:23)
[2018-08-03 07:25] LABS: BASO# 0.02 X1000 (0.0-0.2); BASO% 0.3 % (0.0-0.8); EOS# 0.19 X1000 (0.0-0.7); EOS% 2.4 % (0.0-10.0); HEMATOCRIT 35.8 % (42.0-52.0); HEMOGLOBIN 11.9 g/dL (14.0-18.0); IMM GRAN# 0.03 X1000 (0.0-0.04); IMM GRAN% 0.4 % (0.0-0.5); LYMPH# 1.22 X1000 (1.2-3.4); LYMPH% 15.4 % (20.5-51.1); MCH 36.6 PG (27-31); MCHC 33.2 g/dL (33-37); MCV 110.2 FL (81-99); MONO# 1.19 X1000 (0.11-0.59); MPV 10.4 FL (7.4-10.4); NEUT# 5.26 X1000 (1.4-6.5); NEUT% 66.5 % (42.2-75.2); PLT 102 X1000 (130-400); RBC 3.25 XMIL (4.7-6.1); RDW 14.4 % (11.5-14.5); WBC 7.91 X1000 (4.8-10.8)
[2018-08-03 07:40] LABS: AGAP 9; ALB/GLOB RATIO 0.8; ALBUMIN 2.5 g/dL (3.5-5.0); ALKALINE PHOSPHATASE 83 U/L (32-122); BUN 30 mg/dL (8-22); CALCIUM 8.5 mg/dL (8.8-10.2); CHLORIDE 100 mmol/L (98-107); COSMO 271; CREATININE 1.2 mg/dL (0.7-1.2); ESTIMATED GFR > 60; GLUCOSE 139 mg/dL (70-104); GOT 42 U/L (10-34); GPT 27 U/L (10-44); POTASSIUM 4.8 mmol/L (3.5-5.1); SODIUM 131 mmol/L (136-145); TCO2 22 mmol/L (25-35); TOTAL BILIRUBIN 1.56 mg/dL (0.20-1.00); TOTAL PROTEIN 5.6 g/dL (6.3-8.3)
[2018-08-03 07:57] LABS: INR 2.14; PROTIME 25.5 Seconds (11.0-16.0)
[2018-08-03] MEDS: LACTULOSE PO SCH ×4 (10:21→19:00)
[2018-08-03] MEDS: CENTRUM SILVER PO SCH (10:22)
[2018-08-03] MEDS: XIFAXAN PO SCH ×2 (10:22→21:38)
[2018-08-03] MEDS: NICODERM PATCH TD SCH (10:22)
[2018-08-03] MEDS: FOLIC ACID PO SCH (10:22)
[2018-08-03] MEDS: REMERON PO SCH (10:22)
[2018-08-03] MEDS: ALDACTONE PO SCH (10:23)
[2018-08-03] MEDS: ICAR-C PO SCH (10:23)
[2018-08-03] MEDS: CIPRO PO SCH ×2 (10:23→21:38)
[2018-08-03] MEDS: PATIENT'S OWN MED PO SCH (10:51)
--- NOTE | 2018-08-03 13:53 | PROGRESS NOTE ---
DATE: 08/03/2018 SUBJECTIVE: The patient continues to be awake and alert today. Denies any complaints. OBJECTIVE: Vital Signs: Temperature 98.5 degrees, heart rate 118, respiratory rate 20, blood pressure 123/59, O2 saturation 97% on room. General: This is a chronically ill-appearing and cachectic 63-year-old male, lying in bed, in no acute distress. Cardiovascular: S1, S2 heard. No murmurs, gallops, or rubs. Regular rate and rhythm. Respiratory: Clear bilaterally to auscultation. No work of breathing or using accessory muscles. Abdomen: Soft, a little bit distended. Mild ascites noted. No signs of peritoneal irritation. Extremities: Patient has abrasions and skin tears noted on bilateral arms and elbows. Peripheral pulses present in both legs. Neurological: Patient is awake, a little bit slow but answered question normally. Speech is coherent. Follows commands, moves 4 extremities. LABORATORY DATA: White cell count 7.81, hemoglobin 11.9, hematocrit 35.8, platelets 102,000. Sodium 131, potassium 4.8, creatinine 1.2. ASSESSMENT AND PLAN: 1. Hepatic encephalopathy. The patient is stable. Continue with rifaximin and lactulose. We will continue with same management. Gastroenterology is following this patient. 2. Liver cirrhosis with ascites. The patient could start reaccumulating some fluids again. Ascites noted but is very mild right now. A few days ago, we had removed 8 L of ascitic fluid. So far, we have removed 18 during this month. At this point, we will continue to monitor. 3. Possible spontaneous bacterial peritonitis. We will continue with ciprofloxacin for a total 5 days as per GI recommendation. 4. Coagulopathy. We will continue to check INR daily. There are no signs of bleeding. 5. Thrombocytopenia, improved. Platelets are in the range of 80,000s and 100,000. 6. Deep venous thrombosis of the left leg. We have consulted Hematology Oncology for recommendations for anticoagulation in a patient with decompensated liver cirrhosis, and they started him on Xarelto 20 mg p.o. daily. We will follow recommendations. 7. Acute kidney injury, resolved. 8. Possible esophageal varices. The patient will need endoscopy evaluation as an outpatient. 9. Disposition. We will continue to monitor this patient closely. cc: Jesus Daley MD [facility]
[2018-08-03] MEDS ORDERED: THORAZINE PO ONE (18:16)
[2018-08-03] MEDS: XARELTO PO SCH (18:58)
[2018-08-03] MEDS: ULTRAM PO PRN (21:38)
[2018-08-04 07:12] LABS: ALB/GLOB RATIO 0.8; ALBUMIN 2.2 g/dL (3.5-5.0); CALCIUM 8.5 mg/dL (8.8-10.2); CREATININE 1.4 mg/dL (0.7-1.2); POTASSIUM 5.4 mmol/L (3.5-5.1); TOTAL BILIRUBIN 1.39 mg/dL (0.20-1.00); TOTAL PROTEIN 4.9 g/dL (6.3-8.3)
[2018-08-04 07:18] LABS: INR 4.23; PROTIME 43.6 Seconds (11.0-16.0)
[2018-08-04 07:21] LABS: BASO# 0.01 X1000 (0.0-0.2); BASO% 0.1 % (0.0-0.8); EOS# 0.03 X1000 (0.0-0.7); EOS% 0.4 % (0.0-10.0); HEMATOCRIT 28.8 % (42.0-52.0); HEMOGLOBIN 9.4 g/dL (14.0-18.0); IMM GRAN# 0.04 X1000 (0.0-0.04); IMM GRAN% 0.6 % (0.0-0.5); LYMPH# 0.97 X1000 (1.2-3.4); LYMPH% 13.4 % (20.5-51.1); MCH 36.6 PG (27-31); MCHC 32.6 g/dL (33-37); MCV 112.1 FL (81-99); MONO# 1.19 X1000 (0.11-0.59); MONO% 16.4 % (1.7-9.3); MPV 10.2 FL (7.4-10.4); NEUT# 5.01 X1000 (1.4-6.5); NEUT% 69.1 % (42.2-75.2); PLT 90 X1000 (130-400); RBC 2.57 XMIL (4.7-6.1); RDW 14.4 % (11.5-14.5); WBC 7.25 X1000 (4.8-10.8)
[2018-08-04] MEDS: FOLIC ACID PO SCH (09:10)
[2018-08-04] MEDS: XIFAXAN PO SCH ×2 (09:10→21:20)
[2018-08-04] MEDS: REMERON PO SCH (09:10)
[2018-08-04] MEDS: CENTRUM SILVER PO SCH (09:10)
[2018-08-04] MEDS: CIPRO PO SCH ×2 (09:10→21:20)
[2018-08-04] MEDS: NICODERM PATCH TD SCH (09:11)
[2018-08-04] MEDS: ULTRAM PO PRN (09:11)
[2018-08-04] MEDS: LACTULOSE PO SCH ×3 (09:12→16:57)
[2018-08-04] MEDS: ALDACTONE PO SCH (09:14)
[2018-08-04] MEDS: PATIENT'S OWN MED PO SCH (09:19)
[2018-08-04] MEDS: VITAMIN K 10 MG in NS 50 ML IV SCH (09:36)
--- NOTE | 2018-08-04 11:37 | PROGRESS NOTE ---
DATE: 08/04/2018 SUBJECTIVE: The patient continues to be awake, alert. No complaints at this time. OBJECTIVE: Vital Signs: Temperature 98.0 degrees, heart rate 115, respiratory rate 16, blood pressure 123/55, O2 saturation 100% on room air General examination: This is a chronically ill- appearing and very cachectic 63-year-old male, lying in bed, in no acute distress. Cardiovascular: S1, S2 heard. No murmurs, gallops, or rubs. Regular rate and rhythm. Respiratory: Clear bilaterally to auscultation. No work of breathing or using accessory muscles. Abdomen: Soft. Distended. Mild ascites noted. No signs of peritoneal irritation. Extremities: The patient has abrasion and skin tears noted on bilateral arms and elbows. Peripheral pulses present in both legs. Neurological: Patient is awake, a little bit slow, but answers questions appropriately. Speech is coherent. Moves 4 extremities. Follows commands. DIAGNOSTIC STUDIES: White cell count 7.25, hemoglobin 9.4, hematocrit 28.8, platelets 90. INR 4.33. Sodium 130, potassium 5.4, creatinine 31.4. ASSESSMENT AND PLAN: 1. Hepatic encephalopathy. The patient is stable. We will continue with rifaximin and lactulose. 2. Liver cirrhosis with ascites. We have removed this hospitalization 8 L of ascitic fluid. At this point, it looks like he has reaccumulated again. We will continue to monitor. 3. Possible spontaneous bacterial peritonitis. Patient was recommended to be on ciprofloxacin for total 5 days. 4. Coagulopathy. The patient's INR is elevated so he will receive 1 dose of vitamin K, as per Gastroenterology. 5. Thrombocytopenia, improved. That is related to chronic alcohol consumption. 6. Deep vein thrombosis of the left leg. Hematology has recommend Xarelto 20 mg p.o. daily on him. We will follow recommendations. 7. Acute kidney injury, resolved. DISPOSITION: We will continue to monitor this patient closely. cc: Jesus Daley MD
--- NOTE | 2018-08-04 13:02 | PROVIDER PROGRESS NOTE ---
Progress Note SUBJECTIVE: No acute overnight. No N/V/F, CP, SOB, abdominal pain. BMs. Tolerating diet. No rectal bleeding, melena. OBJECTIVE: Last Vital Signs Temp 98.0 F 08/04/18 07:53 Pulse 115 H 08/04/18 07:53 Resp 16 08/04/18 04:00 BP 99/66 08/04/18 07:53 Pulse Ox 100 08/04/18 07:53 Height 5 ft 10 in Weight 135 lb GEN: cachexia, NAD HEENT: anicteric, MMM NECK: supple, no jvd CV: RRR, no murmurs PULM: CTAB anteriorly ABD: soft minimally TTP throughout, rebound or guarding, BS present, ascites noted EXT: no cce SKIN: skin tears and bruising on extremities improved NEURO: no asterixis, nonfocal LABS: 08/03/18 08/03/18 08/03/18 06:59 06:59 06:59 WBC 7.91 Hgb 11.9 L Plt Count 102 L INR 2.14 D Sodium 131 L Potassium 4.8 Chloride 100 Carbon Dioxide 22 L BUN 30 H Creatinine 1.2 Glucose 139 H Total Bilirubin 1.56 H AST 42 H ALT 27 Alkaline Phosphatase 83 Total Protein 5.6 L Albumin 2.5 L 08/04/18 08/04/18 08/04/18 06:30 06:30 06:30 WBC 7.25 Hgb 9.4 L D Plt Count 90 L INR 4.23 D Sodium 130 L Potassium 5.4 H Chloride 101 Carbon Dioxide 20 L BUN 40 H Creatinine 1.4 H Glucose 166 H Total Bilirubin 1.39 H AST 36 H ALT 23 Alkaline Phosphatase 98 Total Protein 4.9 L Albumin 2.2 L A/P: Mr. Lito Pretty is a 63 year old man with history of decompensated HCV cirrhosis who presented with worsening ascites, AMS, SUJIT, elevated lactate, SIRS found to have hepatic encephalopathy improved with lactulose/rifaximin. Patient has LVP with removal of 8L. Fluid studies were not done, and patient started on empiric therapy for SBP. Remains tachycardic. #SIRS: improved; continue empiric 5 day course of oral ciprofloxacin for presumed SBP #Decompensated HCV cirrhosis: CP-C - Cirrhosis: 2/2 to HCV; trend LFTs daily, INR - Ascites: s/p LVP without albumin administration; low Na diet, trend I/O, daily weights; on spironolactone 100mg daily; will start lasix 40mg daily - PSE: improved; continue lactulose and rifaximin; titrate lactulose for 2-3 BMs daily, hold next dose for >4 BMs in 24 hours - EV: no overt bleeding; patient will need EGD for varices screening as outpatient - HCC: negative on imaging - OLT: follow at [facility]; not on transplant list #SUJIT: stable Cr; renally dose meds; trend Cr daily #HCV: continue home Epclusa #Protein calorie malnutrition: continue folic acid, high protein calorie diet, ensure with meals #Anemia: no overt bleeding; will need EGD/colonoscopy as outpatient #GERD: controlled; continue PPI #NIDDM2: holding metformin, SSI #Tobacco abuse: encouraged smoking cessation #Coagulopathy: likely from malnutrition; will give vitamin K 10mg IV x3 days Thank you for this consult. Will follow with you.
[2018-08-04] MEDS ORDERED: LASIX PO ONE (13:03)
[2018-08-04] MEDS: XARELTO PO SCH (17:29)
[2018-08-05] MEDS ORDERED: LOPRESSOR IV ONE (02:02)
[2018-08-05] MEDS ORDERED: LANOXIN IV ONE (02:03)
[2018-08-05 07:36] LABS: INR 2.6; PROTIME 29.7 Seconds (11.0-16.0)
[2018-08-05] MEDS ORDERED: SODIUM CHLORIDE 0.9% INJ SCH (08:30)
[2018-08-05] MEDS ORDERED: PROTONIX IV SCH (08:30)
[2018-08-05] MEDS ORDERED: LASIX PO SCH (09:00)
[2018-08-05] MEDS ORDERED: ZANTAC IV SCH (09:00)
[2018-08-05] MEDS: NICODERM PATCH TD SCH (09:33)
[2018-08-05] MEDS: LACTULOSE PO SCH ×4 (09:33→16:15)
[2018-08-05] MEDS: FOLIC ACID PO SCH (09:33)
[2018-08-05] MEDS: XIFAXAN PO SCH ×2 (09:33→21:03)
[2018-08-05] MEDS: CENTRUM SILVER PO SCH (09:33)
[2018-08-05] MEDS: CIPRO PO SCH ×2 (09:33→21:03)
[2018-08-05] MEDS: REMERON PO SCH (09:33)
[2018-08-05] MEDS: PATIENT'S OWN MED PO SCH (09:34)
[2018-08-05] MEDS: VITAMIN K 10 MG in NS 50 ML IV SCH (09:34)
[2018-08-05] MEDS: ALDACTONE PO SCH (09:37)
[2018-08-05] MEDS: ULTRAM PO PRN (09:42)
--- NOTE | 2018-08-05 10:13 | GASTROENTEROLOGY PROGRESS NOTE ---
DATE: 08/05/2018 SUBJECTIVE: The patient is resting in bed. He is feeling the same. He denies any nausea, vomiting, or vomiting blood. He started having black tarry stools yesterday. His hematocrit dropped. He was started on Xarelto. He denies any nausea or vomiting. PHYSICAL EXAMINATION: Vital Signs: Temperature of 98.4 degrees, pulse rate of 113, respiratory rate of 16, blood pressure 97/47, saturating 96% on room air. General Appearance: Thinly built, lying in bed, in no acute distress. HEENT: Pale conjunctivae and mild icterus. Neck is supple. Abdomen is soft, protuberant. Positive ascites. No rebound or guarding. Extremities: No cyanosis, clubbing. Neurologic: He is awake and answers questions. LABS: His INR is 2.6 and PTT of 29.7. The labs were done this morning, only had high INR and PT. We will check CBC today. IMPRESSION AND PLAN: 1. Decompensated hepatitis C, cirrhosis complicated with ascites. Status post paracentesis. Continue to watch liver enzymes. We will continue a low-sodium diet. Continue daily weights. Continue on spironolactone 100 mg once daily and Lasix 40 mg daily. 2. Hepatic encephalopathy. Continue lactulose and Xifaxan. 3. Melena. We will discontinue Xarelto. We will check a CBC every 6 hours and transfuse as needed. We may have to do an esophagogastroduodenoscopy, based on his clinical course. 4. Acute kidney injury. Stable. 5. Chronic liver disease, on Epclusa. 6. Protein calorie malnutrition. Continue folic acid, high-protein diet, and Ensure with meals. 7. Anemia. Continue to watch for now. Transfuse as needed. 8. Deep venous thrombosis: Hold Xarelto if ok with Hematology team and primary care team. He is undergoing a hypercoagulable workup. He is also getting vitamin K. Since the patient has black tarry stools and dropping his hematocrit, we will hold Xarelto if okay with primary care team. 9. Noninsulin-dependent diabetes mellitus type 2. He is on sliding scale insulin. 10. Tobacco abuse. Patient counseled to quit smoking. 11. The above plans were discussed with the patient and Nursing staff and all questions were answered, also with the patient's nurse. Please call us with any further questions. cc: MD Sheila De Dios MD Neil Yeager, MD MTDD
[2018-08-05 11:36] LABS: BASO# 0.01 X1000 (0.0-0.2); BASO% 0.1 % (0.0-0.8); EOS# 0.04 X1000 (0.0-0.7); EOS% 0.4 % (0.0-10.0); HEMATOCRIT 22.9 % (42.0-52.0); HEMOGLOBIN 7.5 g/dL (14.0-18.0); IMM GRAN# 0.08 X1000 (0.0-0.04); IMM GRAN% 0.8 % (0.0-0.5); LYMPH# 1.82 X1000 (1.2-3.4); LYMPH% 18.5 % (20.5-51.1); MCH 36.6 PG (27-31); MCHC 32.8 g/dL (33-37); MCV 111.7 FL (81-99); MONO# 1.39 X1000 (0.11-0.59); MONO% 14.1 % (1.7-9.3); MPV 10.5 FL (7.4-10.4); NEUT# 6.49 X1000 (1.4-6.5); NEUT% 66.1 % (42.2-75.2); PLT 95 X1000 (130-400); RBC 2.05 XMIL (4.7-6.1); RDW 14.7 % (11.5-14.5); WBC 9.83 X1000 (4.8-10.8)
[2018-08-05 11:50] LABS: BANDS 7 % (0-1); EOS 1 % (1-10); LYMPHS 7 % (21-51); MONO 12 % (1-9); SEGS 72 % (42-75)
[2018-08-05] MEDS: ZANTAC IV SCH ×2 (12:29→16:41)
--- NOTE | 2018-08-05 14:13 | PROGRESS NOTE ---
DATE: 08/05/2018 SUBJECTIVE: The patient reports that last night he had an episode of black stools and some dizziness. He has not had any melena this morning. OBJECTIVE: Vital Signs: Temperature 98.1 degrees, heart rate 112, respiratory rate 18, blood pressure 94/49, and O2 saturation 100% on room air. General: This is a chronically ill-appearing and very cachectic 63-year-old male lying in bed in no acute distress. Cardiovascular: S1, S2 heard. No murmurs, gallops, or rubs. Patient's heart rhythm is tachycardic. Abdomen: Soft, distended with mild ascites noted. No signs of peritoneal irritation. Extremities: Patient has abrasion and skin tears noted on bilateral arms and also elbows. Peripheral pulses present in both legs. Neurological: Patient is awake, but a little bit slow to answer questions appropriately. Speech is coherent and moves 4 extremities spontaneously. LABORATORY DATA: White cell count 9.33, hemoglobin 7.5, but hemoglobin from yesterday was 9.4, hematocrit 22.9, and platelets 95,000. INR 2.6. The BMP from today still pending. ASSESSMENT AND PLAN: 1. Gastrointestinal bleeding. The patient was started on Xarelto by hematology/oncology because of large blood clot extending from mid thigh to the ankle. Unfortunately, he developed yesterday an episode of melena. He is tachycardic. Blood pressure has been running low so at this point we are going to transfuse 2 units of blood. Gastroenterology is following this patient. We will follow recommendations. We will see if this patient needs to be scoped or not. 2. Hepatic encephalopathy. Patient continues to be on rifaximin and lactulose. He is definitely much more awake in comparing with admission. 3. Liver cirrhosis with ascites. On admission, we have removed so far 8 L of ascitic fluid. It looks like that he is reaccumulating again. At this point, we will continue to monitor this patient closely. 4. Possible spontaneous bacterial peritonitis. As per GI recommendation, patient will be on ciprofloxacin for a total of 5 days. 5. Thrombocytopenia. Platelet count is slightly low, but this is stable. That is related to chronic alcohol consumption. 6. DVT of the left like because of GI bleeding. Xarelto has been stopped. In this patient who is prone to develop bleeding because impaired production of coagulation factors, I think we may need to review the doses of any blood thinner whenever he is a candidate to restart this therapy. In the meantime, we have to stop Xarelto 20 mg p.o. daily. 7. Acute kidney injury resolved. 8. Coagulopathy. INR is better today although still elevated. Will check it tomorrow. 9. Disposition: We will continue to monitor this patient closely. We will transfer this patient to [facility] for better monitoring. cc: Jesus Daley MD MTDD
[2018-08-05 14:45] LABS: CALCIUM 8.6 mg/dL (8.8-10.2); CREATININE 1.5 mg/dL (0.7-1.2); POTASSIUM 6.2 mmol/L (3.5-5.1)
[2018-08-05] MEDS ORDERED: KAYEXALATE PO ONE (14:56)
[2018-08-05] MEDS: MORPHINE IV PRN (16:41)
[2018-08-05] MEDS ORDERED: NS 500 ML ONE (16:46)
[2018-08-05 18:32] LABS: BASO# 0.02 X1000 (0.0-0.2); BASO% 0.2 % (0.0-0.8); EOS# 0.06 X1000 (0.0-0.7); EOS% 0.5 % (0.0-10.0); HEMATOCRIT 24.6 % (42.0-52.0); HEMOGLOBIN 8.3 g/dL (14.0-18.0); IMM GRAN# 0.12 X1000 (0.0-0.04); LYMPH# 1.95 X1000 (1.2-3.4); MCH 36.4 PG (27-31); MCHC 33.7 g/dL (33-37); MCV 107.9 FL (81-99); MONO# 2.09 X1000 (0.11-0.59); MONO% 18.2 % (1.7-9.3); MPV 10.4 FL (7.4-10.4); NEUT# 7.22 X1000 (1.4-6.5); NEUT% 63.1 % (42.2-75.2); PLT 109 X1000 (130-400); RBC 2.28 XMIL (4.7-6.1); RDW 15.1 % (11.5-14.5); WBC 11.46 X1000 (4.8-10.8)
[2018-08-05 22:01] LABS: CALCIUM 8.8 mg/dL (8.8-10.2); CREATININE 1.6 mg/dL (0.7-1.2); POTASSIUM 5.2 mmol/L (3.5-5.1)
[2018-08-06] MEDS: ZANTAC 50 MG in NS 50 ML IV SCH ×3 (00:19→17:57)
[2018-08-06] MEDS: MORPHINE IV PRN ×4 (01:08→19:47)
[2018-08-06 04:14] LABS: BASO# 0.02 X1000 (0.0-0.2); BASO% 0.2 % (0.0-0.8); EOS# 0.19 X1000 (0.0-0.7); EOS% 1.5 % (0.0-10.0); HEMATOCRIT 29.6 % (42.0-52.0); HEMOGLOBIN 10.1 g/dL (14.0-18.0); IMM GRAN# 0.18 X1000 (0.0-0.04); IMM GRAN% 1.4 % (0.0-0.5); LYMPH# 2.98 X1000 (1.2-3.4); LYMPH% 23.8 % (20.5-51.1); MCH 34.5 PG (27-31); MCHC 34.1 g/dL (33-37); MONO# 2.33 X1000 (0.11-0.59); MONO% 18.6 % (1.7-9.3); MPV 10.6 FL (7.4-10.4); NEUT# 6.84 X1000 (1.4-6.5); NEUT% 54.5 % (42.2-75.2); PLT 92 X1000 (130-400); RBC 2.93 XMIL (4.7-6.1); RDW 18.7 % (11.5-14.5); WBC 12.54 X1000 (4.8-10.8)
[2018-08-06 04:36] LABS: ALBUMIN 2.1 g/dL (3.5-5.0); CALCIUM 8.5 mg/dL (8.8-10.2); CREATININE 1.5 mg/dL (0.7-1.2); POTASSIUM 5.6 mmol/L (3.5-5.1); TOTAL BILIRUBIN 2.78 mg/dL (0.20-1.00); TOTAL PROTEIN 4.6 g/dL (6.3-8.3)
[2018-08-06 04:37] LABS: ALB/GLOB RATIO 0.8
[2018-08-06 04:56] LABS: HEMOGLOBIN A1C 4.5 % (4.8-6.0)
[2018-08-06 05:29] LABS: INR 1.45; PROTIME 18.8 Seconds (11.0-16.0)
[2018-08-06 05:53] LABS: URINE SOURCE CATH
[2018-08-06 05:55] LABS: BILIRUBIN URINE NEGATIVE (NEGATIVE); BLOOD URINE SMALL (NEGATIVE); COLOR YELLOW; GLUCOSE URINE NEGATIVE (NEGATIVE); KETONE URINE NEGATIVE (NEGATIVE); LEUKOCYTES URINE NEGATIVE (NEGATIVE); NITRITE URINE NEGATIVE (NEGATIVE); PROTEIN URINE NEGATIVE (NEGATIVE); SP GRAVITY URINE 1.017; TURBIDITY URINE CLEAR (CLEAR); UROBILINOGEN URINE NORMAL (NORMAL)
[2018-08-06 06:00] LABS: UR EPITHELIAL CELLS <10 /HPF (<10); URINE BACTERIA NEGATIVE /HPF; URINE RBC <10 /HPF (<10); URINE WBC <10 /HPF (<10)
--- NOTE | 2018-08-06 06:54 | Diag Imaging Result Doc PS360 ---
CHEST-1 VIEW - 08/06/2018 INDICATION: dyspnea COMPARISON: 07/30/2018 FINDINGS: The lungs are normally expanded and clear. Heart size and mediastinal contours are normal. No pneumothorax or pleural effusion. IMPRESSION: Negative exam. Electronically signed by Uzair Gillette 08/06/2018 6:51 AM
[2018-08-06 07:04] LABS: FREE T4 1.03 ng/dL (0.93-1.70); TSH 5.25 uIUmL (0.27-4.20)
--- NOTE | 2018-08-06 07:33 | EKG Report ---
Test Performed on : 08/06/2018 06:34:53 AM Test Reason : afib Blood Pressure : / mmHG Vent. Rate : 107 BPM Atrial Rate : 107 BPM P-R Int : 160 ms QRS Dur : 066 ms QT Int : 364 ms P-R-T Axes : 070 035 075 degrees QTc Int : 485 ms Sinus tachycardia. Low voltage QRS Nonspecific T wave abnormality Abnormal ECG When compared with ECG of 29-JUL-2018 14:54, (Unconfirmed) No significant change was found Confirmed by Omid LE, Jones Cuenca ([id number]) on 08/06/2018 5:30:53 PM
[2018-08-06] MEDS: ALBUMIN 25% IV SCH (08:49)
[2018-08-06] MEDS: NICODERM PATCH TD SCH (08:56)
[2018-08-06] MEDS: LACTULOSE PO SCH ×3 (08:56→17:57)
[2018-08-06] MEDS: REMERON PO SCH (08:58)
[2018-08-06] MEDS: FOLIC ACID PO SCH (08:58)
[2018-08-06] MEDS: XIFAXAN PO SCH ×3 (08:58→20:55)
[2018-08-06] MEDS: CENTRUM SILVER PO SCH (08:58)
[2018-08-06] MEDS: PATIENT'S OWN MED PO SCH (08:58)
[2018-08-06] MEDS: VITAMIN K 10 MG in NS 50 ML IV SCH (10:04)
[2018-08-06 11:44] LABS: BASO# 0.02 X1000 (0.0-0.2); BASO% 0.2 % (0.0-0.8); EOS# 0.21 X1000 (0.0-0.7); EOS% 2.2 % (0.0-10.0); HEMATOCRIT 25.7 % (42.0-52.0); HEMOGLOBIN 8.7 g/dL (14.0-18.0); LYMPH# 2.16 X1000 (1.2-3.4); LYMPH% 22.5 % (20.5-51.1); MCH 34.7 PG (27-31); MCHC 33.9 g/dL (33-37); MCV 102.4 FL (81-99); MONO# 1.82 X1000 (0.11-0.59); MPV 10.7 FL (7.4-10.4); NEUT# 5.28 X1000 (1.4-6.5); NEUT% 55.1 % (42.2-75.2); PLT 74 X1000 (130-400); RBC 2.51 XMIL (4.7-6.1); RDW 19.2 % (11.5-14.5); WBC 9.59 X1000 (4.8-10.8)
[2018-08-06 12:49] LABS: UR CREAT RANDOM 59.1 mg/dL (14-26); UR PROT RANDOM 8.5 mg/dL
[2018-08-06 13:06] LABS: UR SODIUM < 10 mmoll
[2018-08-06 15:07] LABS: UR PROT RANDOM 8.4 mg/dL
--- NOTE | 2018-08-06 15:52 | NEPHROLOGY CONSULTATION ---
DATE: 08/06/2018 REASON FOR ADMISSION: Altered mental status. REASON FOR CONSULT: Acute kidney injury with hyperkalemia. CONSULTING PHYSICIAN: Dr. Maryellen Ramírez. HISTORY OF PRESENT ILLNESS: Mr. Pretty is a 63-year-old white male who has recently been admitted to [facility] to the hospitalist service with a known history of cirrhosis with ascites, hep C, and diabetes mellitus type 2. During this hospitalization it was noted that his sister had not heard from him in several days. When she called him he was not acting himself. He was brought to [facility] Emergency Department. He was found to be lying on the floor. Ambulance brought him to the ER. In the emergency room he was drowsy, responded to tactile stimuli only. He had multiple abrasions and skin tears. He was found to have leukocytosis. He was in acute kidney injury during that period of time. He was also found to have a total bilirubin of 2.59, AST of 52, and ammonia level of 114. Urine drug screen was positive for oxycodone and benzodiazepines. CT of the head was performed with C-spine without contrast which was negative. C-spine showed cervical spondylosis. No acute injury. Chest x- ray showed no acute abnormality. During this period of time he has been in [facility]. He has been monitored. The patient had severe abdominal ascites. He had a paracentesis 2 days ago for 8 L of removal. During that period of time it is noted that his creatinine went from 1.4 up to 1.6 yesterday evening, now down to 1.5 with an elevated BUN. Urine electrolytes indicate a low sodium, showing that the patient is volume depleted. He denies any chest pain. No increased work of breathing. Positive for weakness, low appetite. No nausea. No vomiting. No fever or chills that he is aware. PAST MEDICAL HISTORY: Noted for cirrhosis, hepatitis C, colitis, diabetes mellitus type 2, alcohol abuse, gastroesophageal reflux disease. PREVIOUS SURGICAL HISTORY: Paracentesis, most recently 2 days ago. Otherwise, no other surgical history. SOCIAL HISTORY: He lives alone. He smokes a half a pack a day. He has his sister who is his only family who is attentive to his care. He is not known to have any illicit drug use. FAMILY HISTORY: Positive history for cirrhosis with sister and nephew as well. ALLERGIES: Mentioned as no known drug allergies. HOME MEDICATIONS: Have been listed as bumetanide, folic acid, Remeron, omeprazole, Oxy-IR, and Aldactone. REVIEW OF SYSTEMS: As best obtained per patient, the rest obtained from chart with pertinent positives listed above in the HPI. VITAL SIGNS: Most recently, temperature 98.1 degrees blood pressure 107/53, heart rate 106, respirations are 12. He has had 2413 in. He has had 1300 out. He is in a negative 2.3 L fluid balance. He remains on room air. Last recorded saturation is 98%. LABS: Sodium 127, potassium 5.6, chloride 97, CO2 21, BUN is 58, creatinine 1.5, glucose 122. His anion gap is 9, calcium 8.5, albumin 2.1. White count 12.59, hemoglobin 10.1, hematocrit 29.6, with a platelet count of 92,000. His ProTime is 18.8 with an INR of 1.45. TSH of 5.25. Last ammonia level of 100. PHYSICAL EXAMINATION: General: This is a 63-year-old white male resting quietly in bed, head of the bed is slightly elevated. He appears chronically ill. No acute distress. Skin: Warm and dry. HEENT: Normocephalic. Ecchymosis noted to his left forehead with slight abrasion, no laceration. Pupils are equal and reactive to light. Mucous membranes are dry. Neck: Supple. Trachea midline. No evidence of JVD in the upright position. Cardiovascular: He is regular rate and rhythm. He is without any appreciable murmur. Lungs: Clear to auscultation anteriorly. Equal excursion. On room air. Abdomen: Distended, tight. Positive bowel sounds, hypoactive. No tenderness present. Genitourinary: Adequate urine output is documented. Not inspected. Extremities: ++ edema. No clubbing or cyanosis, though he does have swelling noted to his left lower extremity with an abrasion and a skin tear to the bilateral upper arms, also to the bilateral elbows, left greater than right. Neurological: He is alert and oriented to person and to place. ASSESSMENT AND PLAN: 1. Acute kidney injury. The patient appears to be volume depleted. He has a low urine sodium of less than 10. We agree with volume expansion of albumin 50 g x3. IV fluids are currently on hold. May possibly benefit from normal saline at a low infusion. We will monitor his electrolytes in the a.m. 2. Hyperkalemia. Again, this may be related to his poor distal tubular sodium delivery. We do agree with continued volume expansion with albumin. We have ordered a potassium for this afternoon. He had received Kayexalate yesterday. Potassium continues elevated at 5.6 from 4 a.m. this morning. 3. Deep vein thrombosis noted, left lower extremity. Currently on therapeutic Lovenox. He has been started on Xarelto. Followed by Dr. Gambino. 4. Decompensated cirrhosis. This is followed by the hospitalist. He continues on Xifaxan and lactulose. 5. Ascites, post paracentesis. Patient appears to be fluid volume deficit of negative 2.3 L. We agree with expansion with albumin. We will continue to follow with you. I would like to thank you for allowing us to follow with this patient. Dictated by MATT Estevez for Alfonso Osborn MD Face to face encounter, data reviewed, discussed with Vance Cordero on 08/06/18. I agree with the above assessment and plan of care. cc: MATT Estevez MD [facility]
[2018-08-06 18:09] LABS: BASO# 0.01 X1000 (0.0-0.2); BASO% 0.1 % (0.0-0.8); EOS# 0.27 X1000 (0.0-0.7); EOS% 2.9 % (0.0-10.0); HEMATOCRIT 28.3 % (42.0-52.0); HEMOGLOBIN 9.7 g/dL (14.0-18.0); IMM GRAN# 0.07 X1000 (0.0-0.04); IMM GRAN% 0.7 % (0.0-0.5); LYMPH% 26.5 % (20.5-51.1); MCH 34.6 PG (27-31); MCHC 34.3 g/dL (33-37); MCV 101.1 FL (81-99); MONO# 1.72 X1000 (0.11-0.59); MONO% 18.2 % (1.7-9.3); NEUT# 4.88 X1000 (1.4-6.5); NEUT% 51.6 % (42.2-75.2); PLT 90 X1000 (130-400); RDW 19.2 % (11.5-14.5); WBC 9.45 X1000 (4.8-10.8)
--- NOTE | 2018-08-06 19:58 | Diag Imaging Result Doc PS360 ---
EXAM: US RENAL 2 (RETROPER) COMPLETE HISTORY: SUJIT TECHNIQUE: Renal ultrasound COMPARISON: 07/30/2018 FINDINGS: The right kidney measures 10.0 x 4.0 x 4.7 cm. The left kidney measures 9.1 x 4.8 x 4.5 cm. Normal cortical thickness to each kidney. There is increased renal echotexture. No hydronephrosis. There is a 7 mm stone in the upper pole of the right kidney. Prominent ascites. IMPRESSION: Increased renal echotexture consistent with medical renal disease. There is also nonobstructing right upper pole renal stone. Electronically signed by Nikko Santa 08/06/2018 7:56 PM
--- NOTE | 2018-08-06 20:00 | PROGRESS NOTE ---
DATE: 08/06/2018 SUBJECTIVE: The patient is resting comfortably in bed. He states that he wants to get up and try and do some walking. OBJECTIVE: Vital Signs: Temperature 98.3 degrees, blood pressure 109/56, heart rate 114, respirations 15, O2 saturation 97% on room air. General: This is a chronically ill-appearing elderly male lying in bed in no acute distress. Heart: S1, S2 normal. Tachycardic. Lungs: Clear to auscultation bilaterally. No wheezing. No rales. No rhonchi. Abdomen: Positive bowel sounds. Soft. Mildly distended. Extremities: 1+ edema in the left lower extremity, trace edema in the right. Neurologic: The patient is alert and oriented x3. LABS: White blood cell count 9.4, hemoglobin 9.7, hematocrit 28, platelets 90,000. INR 1.4. Sodium 127, potassium 4.3, chloride 97, CO2 21, BUN 58, creatinine 1.5, glucose 122, total bilirubin 2.7, AST 61, ALT 31, ammonia 100. ASSESSMENT AND PLAN: 1. Decompensated liver cirrhosis. Continue with the current management as directed by the reclamation furnace operator. 2. Massive ascites status post large volume paracentesis. The patient is currently on albumin infusions. We will continue to monitor the patient closely. 3. Acute kidney injury. Urine studies have been obtained. Albumin has been started. We will monitor the patient's renal function closely. Further management as per the trimming cutter. 4. Hepatitis C. Aware. 5. Chronic thrombocytopenia. Stable. We will monitor the platelet count closely. 6. Hepatic encephalopathy. Continue on lactulose and rifaximin. 7. Tobacco dependence. Continue NicoDerm patch. 8. Hyperkalemia. Improved. We will monitor this closely. 9. Coagulopathy. The patient is currently on daily vitamin K infusions. Monitor the INR closely. 10. Anemia. Stable. 11. Left lower extremity deep vein thrombosis. Aware. The patient is off anticoagulation. Hematology is following. 12. Tachycardia. Will start p.r.n. Lopressor. 13. Will consult physical therapy. cc: Maryellen Ramírez MD MTDD
--- NOTE | 2018-08-06 23:38 | PROVIDER PROGRESS NOTE ---
Progress Note SUBJECTIVE: No acute overnight events. Patient tolerating diet. Reported black stools in chart. No transfusion requirements. No abdominal pain. OBJECTIVE: Last Vital Signs Temp 97.8 F 08/07/18 00:00 Pulse 120 H 08/07/18 00:00 Resp 17 08/07/18 00:00 BP 116/69 08/07/18 00:00 Pulse Ox 100 08/07/18 00:00 Height 5 ft 10 in Weight 132 lb 9.6 oz cachexia, NAD HEENT: anicteric, MMM NECK: supple, no jvd CV: RRR, no murmurs PULM: CTAB anteriorly ABD: soft minimally TTP throughout, rebound or guarding, BS present, ascites noted EXT: no cce SKIN: skin tears and bruising on extremities improved NEURO: no asterixis, nonfocal LABS: 08/06/18 08/06/18 08/06/18 04:00 04:00 04:50 WBC 12.54 H Hgb 10.1 L D Plt Count 92 L INR 1.45 D Sodium 127 L Potassium 5.6 H Chloride 97 L Carbon Dioxide 21 L BUN 58 H Creatinine 1.5 H Glucose 122 H Total Bilirubin 2.78 H AST 61 H ALT 31 Alkaline Phosphatase 71 Ammonia 100 Total Protein 4.6 L Albumin 2.1 L A/P: Mr. Lito Pretty is a 63 year old man with history of decompensated HCV cirrhosis who presented with worsening ascites, AMS, SUJIT, elevated lactate, SIRS found to have hepatic encephalopathy improved with lactulose/rifaximin. Patient has LVP with removal of 8L. Fluid studies were not done, and patient started on empiric therapy for SBP. Remains tachycardic. Patient has worsening SUJIT and hyponatremia secondary to diuretics. Now holding. Noted black stools. #SIRS: improved; continue empiric 5 day course of oral ciprofloxacin for presumed SBP #Decompensated HCV cirrhosis: CP-C - Cirrhosis: 2/2 to HCV; trend LFTs daily, INR - Ascites: s/p LVP without albumin administration; low Na diet, trend I/O, daily weights; hold diuretics; receiving albumin 50g x3 days - PSE: improved; continue lactulose and rifaximin; titrate lactulose for 2-3 BMs daily, hold next dose for >4 BMs in 24 hours - EV: downtrending H/H; patient will likely need EGD, NPO after MN; stopped H2RA and started PPI IV BID - HCC: negative on imaging - OLT: follow at [facility]; not on transplant list #Leukocytosis: noted #SUJIT: uptrending Cr; holding diuretics, on albumin #HCV: continue home Epclusa #Protein calorie malnutrition: continue folic acid, high protein calorie diet, ensure with meals #Anemia: worsening; trend daily, transfuse prn goal hgb 7-8 #Coagulopathy: 2/2 to liver disease; receiving vitamin K Will follow with you.
[2018-08-07] MEDS: ZANTAC 50 MG in NS 50 ML IV SCH (00:35)
[2018-08-07] MEDS ORDERED: PROTONIX IV SCH (03:00)
[2018-08-07] MEDS ORDERED: SODIUM CHLORIDE 0.9% INJ SCH (03:00)
--- NOTE | 2018-08-07 06:48 | Diag Imaging Result Doc PS360 ---
CHEST-PORTABLE - 08/07/2018 INDICATION: dyspnea COMPARISON: 08/06/2018 FINDINGS: Lung volumes are lower. There is some linear atelectasis in the right base. Otherwise no focal infiltrates. Heart size is normal. IMPRESSION: Lower lung volumes with some linear atelectasis in the right lung base. Electronically signed by Uzair Gillette 08/07/2018 6:45 AM
[2018-08-07] MEDS ORDERED: DIPRIVAN 1% ONE (07:23)
[2018-08-07] MEDS ORDERED: XYLOCAINE-MPF 2% ONE (07:24)
[2018-08-07] MEDS ORDERED: FENTANYL ONE (07:25)
[2018-08-07] MEDS: NICODERM PATCH TD SCH (08:17)
[2018-08-07] MEDS: LACTULOSE PO SCH ×3 (08:17→20:56)
[2018-08-07 08:35] LABS: ALB/GLOB RATIO 1.1; ALBUMIN 2.4 g/dL (3.5-5.0); CALCIUM 8.6 mg/dL (8.8-10.2); CREATININE 1.3 mg/dL (0.7-1.2); POTASSIUM 4.5 mmol/L (3.5-5.1); TOTAL BILIRUBIN 2.26 mg/dL (0.20-1.00); TOTAL PROTEIN 4.5 g/dL (6.3-8.3)
--- NOTE | 2018-08-07 08:39 | NEPHROLOGY PROGRESS NOTE ---
DATE: 08/07/2018 DATE AND TIME SEEN: 08/07/2018 at 0720. SUBJECTIVE: Mr. Pretty is resting quietly in bed. Head of the bed is slightly elevated. He has no complaints. His skin is warm and dry. OBJECTIVE: MOST RECENT VITAL SIGNS: His last temperature 97.8 degrees, blood pressure 114/63, heart rate is 122, respirations are 18. He remains on room air, last recorded saturation is 93%. He has had 1315 in, 1950 out to [place] catheter. LABORATORY DATA: Labs currently pending. Previous potassium of 4.3. Previous hemoglobin 9.7. PHYSICAL EXAMINATION: General: This is a 63-year-old white male resting quietly in bed. Head of the bed is slightly elevated. He appears chronically ill. No acute distress. Skin is warm and dry. Minimal response to verbal and tactile stimuli. HEENT: Normocephalic. Ecchymosis noted to his left forehead with slight abrasion. No laceration is present. Pupils are equal and reactive to light. He is slightly icteric. Mucous membranes are dry. Neck: Supple. Trachea midline. No evidence of JVD in the upright position. Cardiovascular: Regular rate and rhythm. He is without any appreciable murmur. Lungs: Diminished breath sounds with poor inspiratory effort. He remains on room air. Abdomen: Distended, hypoactive. Positive bowel sounds. Genitourinary: A [place] catheter is in place. Not inspected. Adequate urine out. Extremities: Continues with 2+ lower extremity edema. Integumentary: Patient has abrasions and skin tears to the bilateral upper arms, bilateral elbows, left greater than right. Neurological: As mentioned above. ASSESSMENT AND PLAN: 1. Acute kidney injury. Patient appears to be volume depleted. He has low urine sodium, less than 10 yesterday. We agree with continuing his albumin 50 g x3 days with re-evaluation. His IV fluids are currently on hold secondary to his positive lower extremity edema. We will continue to monitor his electrolytes. These are currently pending. 2. History of hyperkalemia. Potassium came down to 4.3 with fluid volume resuscitation. 3. Deep venous thrombosis noted to the left lower extremity. He is on therapeutic Lovenox. 4. Decompensated cirrhosis, followed by the Hospitalist. He is on Xifaxan and lactulose. 5. Ascites. He is postparacentesis 2 days. PLAN: The patient does have poor distal tubular absorption. Agree with fluid volume resuscitation with albumin. Potassium has responded nicely. We will continue to monitor and follow. I would like to thank you for allowing us to follow with this patient. Dictated by MATT Estevez for Alfonso Osborn MD Face to face encounter, data reviewed, discussed with Vance Cordero on 08/07/18. I agree with the above assessment and plan of care. cc: MATT Estevez MD [facility]
[2018-08-07 08:57] LABS: INR 1.42; PROTIME 18.4 Seconds (11.0-16.0)
[2018-08-07 09:59] LABS: HEMATOCRIT 26.9 % (42.0-52.0); HEMOGLOBIN 9.3 g/dL (14.0-18.0); MCH 35.2 PG (27-31); MCHC 34.6 g/dL (33-37); MCV 101.9 FL (81-99); MPV 10.8 FL (7.4-10.4); RBC 2.64 XMIL (4.7-6.1); RDW 19.3 % (11.5-14.5); WBC 8.47 X1000 (4.8-10.8)
--- NOTE | 2018-08-07 10:05 | ENDOSCOPY OPERATIVE NOTE ---
[facility] ENDOSCOPY OPERATIVE NOTE , PATIENT: Lito Pretty ADMISSION DATE: 08/07/2018 MR#: [id number] : 1955 EGD PROCEDURE REPORT PROCEDURE DATE: 08/07/2018 SURGEON: Gene Lockwood MD STATUS: inpatient BOOKKEEPER ASSISTANT: PREOPERATIVE DIAGNOSIS: The patient is a 63 yr old male here for an EGD due to melena and anemia. PROCEDURE PERFORMED: EGD, diagnostic MEDICATIONS: Per Anesthesia TOPICAL ANESTHETIC: CONSENT: The patient understands the risks and benefits of the procedure and understands that these r isks include, but are not limited to: sedation, allergic reaction, infection, perforation and/or bleeding. Alternative means of evaluation and treatment include, among others: physical exam, x-rays, and/or surgical intervention. The patient elects to proceed with this endoscopic procedure. HISORY AND PHYSICAL: 08/07/2018 function. Hand hygiene and appropriate measures for infection prevention was taken. After the risks, benefits and alternatives of the procedure were thoroughly explained, Informed consent was verified, confirmed and timeout was successfully executed by the treatment team. The patient was anesthetized with topical anesthesia and the [id number] ([id number]) endoscope was introduced through the mouth and advanced to the second portion of the duoden um. Retroflexion was performed in the stomach and revealed no abnormalities. The gastroscope was then slowly withdraw n and removed. ESOPHAGUS: There were 2 columns of Grade I esophageal varices with no stigmata of recent bleeding STOMACH: Moderate portal hypertensive gastropathy was found with diffuse oozing of blood found in the antrum. The was no discrete treatable lesion found. No gastric varices on retroflexion. DUODENUM: The duodenal mucosa showed no abnormalities in the duodenal bulb and 2nd part duodenum. SPECIMENS REMOVED: No ADVERSE EVENTS: There were no complications. POSTOPERATIVE DIAGNOSIS: ESOPHAGUS: There were 2 columns of Grade I esophageal varices with no stigmata of recent bleeding STOMACH: Moderate portal hypertensive gastropathy was found with diffuse oozing of blood found in the antrum. The was no discrete treatable lesion found. No gastric varices on retroflexion. DUODENUM: The duodenal mucosa showed no abnormalities in the duodenal bulb and 2nd part duodenum. RECOMMENDATIONS: Continue PPI BID. Can transition to oral therapy twice daily Avoid blood thinners, ASA Trend H/H daily, transfuse as needed for hgb <7 Patient not a candidate for non-selective beta camryn at this time given uncontrolled ascites Palliative care consultation REPEAT EXAM: Gene Lockwood MD eSigned: Gene Lockwood MD 08/07/2018 10:04 AM cc: PATIENT NAME: Lito Pretty MR#: [id number]
[2018-08-07] MEDS: REMERON PO SCH (12:23)
[2018-08-07] MEDS: CENTRUM SILVER PO SCH (12:24)
[2018-08-07] MEDS: XIFAXAN PO SCH ×2 (12:24→20:56)
[2018-08-07] MEDS: FOLIC ACID PO SCH (12:24)
[2018-08-07] MEDS: PATIENT'S OWN MED PO SCH (12:24)
[2018-08-07] MEDS: ALBUMIN 25% IV SCH (12:45)
[2018-08-07] MEDS: MORPHINE IV PRN ×2 (12:45→23:37)
--- NOTE | 2018-08-07 14:53 | ECHO REPORT ---
ORDER DATE: 08/06/2018 MEASUREMENTS: Septal thickness 0.8, left ventricular internal diameter in diastole 4.1, left ventricular posterior wall thickness 0.8, left ventricular internal diameter in systole 2.4, aortic root 3.6, left atrium 2.7. SUMMARY: 1. Adequate quality study. 2. Aortic valve is trileaflet and opens normally on 2-dimensional images. Mitral, tricuspid, and pulmonic valves are without evidence of structural abnormality with trace mitral regurgitation and trace tricuspid regurgitation. The estimated systolic PA pressure by Doppler is 45 mmHg, suggesting mild to moderate pulmonary hypertension. The aortic root is normal in size. 3. Normal left ventricular dimensions demonstrated. Estimated left ventricular ejection fraction appears to be at least 70%. No regional wall motion abnormalities are evident. Doppler suggests grade 1 left ventricular diastolic dysfunction. Left atrium, right atrium, and right ventricle are normal in size with normal right ventricular systolic function. 4. Trivial, tiny posterior pericardial effusion. 5. Significant left pleural effusion. 6. Inferior vena cava not well demonstrated. CONCLUSIONS: 1. No significant valvular abnormality. 2. Mild to moderate pulmonary hypertension. 3. Estimated left ventricular ejection fraction at least 70% without wall motion abnormality evident. 4. Grade 1 left ventricular diastolic dysfunction. 5. Tiny posterior pericardial effusion and significant left pleural effusion demonstrated. cc: MD Maryellen Montoya MD
--- NOTE | 2018-08-07 18:02 | PROGRESS NOTE ---
DATE: 08/07/2018 SUBJECTIVE: The patient is resting. He states that he does not feel well today. No acute events noted overnight. OBJECTIVE: Vital Signs: Temperature 98.5 degrees, blood pressure 113/46, heart rate 115, respirations 17, O2 saturation is 100% on room air. General: This is a chronically ill- appearing, elderly male lying in bed, in no acute distress. Heart: S1, S2 normal. Tachycardic. Lungs: Equal air entry bilaterally. No wheezing. No rales. Abdomen: Positive bowel sounds. Soft. Extremities: There is 3+ edema bilaterally. Neurologic: The patient is awake, alert, and oriented x3. LABS: White blood cell count 8.4, hemoglobin 9.3, hematocrit 26, platelets 78,000. INR 1.4. Sodium 129, potassium 4.5, chloride 98, CO2 24, BUN 54, creatinine 1.3, glucose 175, total bilirubin 2.2, AST 53, ALT 30, alkaline phosphatase 68. ASSESSMENT AND PLAN: 1. Decompensated liver cirrhosis. Continue with supportive care. GI is following. 2. Massive ascites status post large volume paracentesis. Continue to monitor. 3. Acute kidney injury. Improved. The patient is receiving albumin infusions. 4. Chronic thrombocytopenia. The patient's platelet count is lower today. Continue to monitor closely. 5. Small pericardial effusion. Aware. 6. Tachycardia. Aware. 7. Tobacco dependence. Continue on the NicoDerm patch. 8. Coagulopathy. Stable. 9. Hepatic encephalopathy. Continue on lactulose and rifaximin. 10. Chronic pain. The patient is on tramadol and morphine as needed. 11. Hepatitis C. Aware. 12. Disposition. The patient has an overall poor prognosis. Palliative Care has been consulted. cc: Maryellen Ramírez MD [facility]PITALYanick
[2018-08-07] MEDS: PROTONIX PO SCH (20:56)
[2018-08-08 05:47] LABS: INR 1.46; PROTIME 18.8 Seconds (11.0-16.0)
[2018-08-08 05:53] LABS: HEMATOCRIT 24.8 % (42.0-52.0); HEMOGLOBIN 8.2 g/dL (14.0-18.0); MCH 35.2 PG (27-31); MCHC 33.1 g/dL (33-37); MCV 106.4 FL (81-99); MPV 10.7 FL (7.4-10.4); RBC 2.33 XMIL (4.7-6.1); RDW 19.7 % (11.5-14.5); WBC 6.94 X1000 (4.8-10.8)
[2018-08-08 05:59] LABS: AGAP 10; ALB/GLOB RATIO 1.6; ALBUMIN 2.9 g/dL (3.5-5.0); ALKALINE PHOSPHATASE 69 U/L (32-122); BUN 47 mg/dL (8-22); CALCIUM 9.4 mg/dL (8.8-10.2); CHLORIDE 98 mmol/L (98-107); COSMO 275; CREATININE 1.1 mg/dL (0.7-1.2); ESTIMATED GFR > 60; GLUCOSE 107 mg/dL (70-104); GOT 48 U/L (10-34); GPT 29 U/L (10-44); POTASSIUM 4.5 mmol/L (3.5-5.1); SODIUM 131 mmol/L (136-145); TCO2 23 mmol/L (25-35); TOTAL BILIRUBIN 1.86 mg/dL (0.20-1.00); TOTAL PROTEIN 4.7 g/dL (6.3-8.3)
[2018-08-08] MEDS: MORPHINE IV PRN ×5 (07:55→21:37)
[2018-08-08] MEDS: FOLIC ACID PO SCH (08:00)
[2018-08-08] MEDS: PROTONIX PO SCH ×2 (08:01→21:36)
[2018-08-08] MEDS: NICODERM PATCH TD SCH (08:01)
[2018-08-08] MEDS: LACTULOSE PO SCH ×3 (08:01→17:36)
[2018-08-08] MEDS: CENTRUM SILVER PO SCH (08:01)
[2018-08-08] MEDS: XIFAXAN PO SCH ×2 (08:01→21:36)
[2018-08-08] MEDS: REMERON PO SCH (08:01)
[2018-08-08] MEDS: ALBUMIN 25% IV SCH (08:22)
[2018-08-08] MEDS: PATIENT'S OWN MED PO SCH (08:39)
--- NOTE | 2018-08-08 09:32 | NEPHROLOGY PROGRESS NOTE ---
DATE: 08/08/2018 Date Seen: 08/08/2018. Time Seen:0710. SUBJECTIVE: Mr. Pretty is resting quietly in bed. He has no complaints. OBJECTIVE: Vital Signs: Temperature 98.1 degrees, blood pressure 93/40, heart rate 118 respirations 16. He remains on room air. Last recorded saturation is 97%. He has had 480 in and 1450 out to void. LABORATORY DATA: Sodium 131, potassium 4.5, chloride 98, CO2 23, BUN 47, creatinine 1.1, glucose 107. His anion gap is 23, calcium 9.4, albumin is 2.9. White count 6.94, hemoglobin 8.2, hematocrit 24.8 with a platelet count of 71,000. PHYSICAL EXAMINATION: General: This is a 63-year-old white male. He is resting in bed. He appears chronically ill in no acute distress. Skin: Warm and dry. HEENT: Normocephalic, ecchymosis noted to left forehead and slight abrasion with no laceration present. Pupils are equal and reactive to light. Sclera is slightly icteric. Mucous membranes are dry. Neck: Supple. Trachea midline. No JVD in the upright position. Cardiovascular: Regular rate and rhythm. No appreciable murmur. Lungs: Diminished breath sounds bilaterally. Equal excursion on room air. Abdomen: Distended, hypoactive. Extremities: Continues with 2+ lower extremity edema. No clubbing or cyanosis. Neurological: Alert and oriented x2. ASSESSMENT AND PLAN: 1. Acute kidney injury. This has resolved. The patient's creatinine is back to his baseline of 1.1 with adequate urine out. We will sign off at this time and remain available if needed. 2. Hyperkalemia. This is resolved. Potassium has remained stable for 48 hours in the 4's. 3. Decompensated cirrhosis with ascites and positive lower extremity edema. We will recommend that patient remains on albumin for a total of 3 more days 50 g secondary to his poor distal tubule sodium delivery to assist with his fluid volume management. I would like to thank you for allowing us to follow with this patient. Dictated by MATT Estevez for Alfonso Osborn MD Face to face encounter, data reviewed, discussed with Vance Cordero on 08/08/18. I agree with the above assessment and plan of care. cc: MATT Estevez MD MTDD
[2018-08-08] MEDS: CARAFATE LIQUID PO SCH ×2 (13:07→21:37)
--- NOTE | 2018-08-08 13:09 | GASTROENTEROLOGY PROGRESS NOTE ---
DATE: 08/08/2018 SUBJECTIVE: Patient currently resting in bed. He is feeling better. He wants to go home. He is on Epclusa for chronic hepatitis C. He has decompensated liver cirrhosis. OBJECTIVE: Vital signs: Temperature 98.8 degrees, pulse rate 120, respiratory rate 17, blood pressure 105/62, saturating 100% on room air. Body weight of 136 pounds 3.2 ounces. BMI 19 kg/m2. General: Thinly built, lying in bed, in no acute distress. HEENT: Pale conjunctiva, icteric sclerae. Neck: Supple. Abdomen: Protuberant. Mild ascites. No guarding or rebound. Extremities: No cyanosis, clubbing. Lack of muscle mass in the upper and lower extremities. Neurologic: He is awake, alert. Answers questions. LABORATORY DATA: Hemoglobin and hematocrit is 8.2 and 24.8, white count of 6.94, platelet count of 71,000. Potassium 4.5, chloride 98, bicarb 23, anion gap 10, BUN of 47, creatinine 1.1, glucose of 107, calcium 9.4. Total bilirubin 1.86, AST 48, ALT 29, alkaline phosphatase 69, total protein 4.7, albumin of 2.9. INR 1.46. PTT of 18.8. Blood culture negative at 48 hours from 08/06/2018. EGD done yesterday by Dr. Lockwood showed evidence of moderate portal hypertensive gastropathy with diffuse oozing of blood found in the antrum. No discrete lesions noted to treat. Two columns of grade 1 esophageal varices noted with no stigmata of recent bleeding. IMPRESSION: 1. Decompensated liver cirrhosis. 2. Massive ascites status post large-volume paracentesis. 3. Portal hypertensive gastropathy with diffuse oozing on esophagogastroduodenoscopy. 4. Two columns of esophageal varices noted, grade 1, on recent esophagogastroduodenoscopy yesterday. 5. Chronic thrombocytopenia. 6. Chronic hepatitis C, on Epclusa, under the care of Hepatology at [facility]. 7. Small pericardial effusion. 8. Tobacco abuse. 9. Coagulopathy. Current INR is less than 1 5. 10. Hepatic encephalopathy. He continues on lactulose and Xifaxan. 11. Chronic pain. He is on tramadol and morphine as needed. 12. Anemia. RECOMMENDATIONS: The patient will continue on PPIs b.i.d. The patient will continue to follow at [facility] on discharge for treatment of decompensated liver cirrhosis and chronic hepatitis C. He is currently taking Epclusa. The patient has anemia. He will continue to be watched closely, given transfusion as needed to keep hemoglobin around 7 g/dL. We will start on iron C b.i.d. and MVI once daily. He will continue lactulose and Xifaxan for hepatic encephalopathy. He will continue on NicoDerm patch, the patient was counseled to quit smoking completely. The above plans discussed with the patient and all questions answered. Please call us with any further questions. cc: MD Maryellen De Dios MD Neil Yeager, MD MTDD
--- NOTE | 2018-08-08 13:09 | PROGRESS NOTE ---
DATE: 08/08/2018 SUBJECTIVE: The patient is resting comfortably in bed. He states that he wants to go home. OBJECTIVE: Vital Signs: Temperature 98 degrees, blood pressure 105/62, heart rate 120, respirations 17, O2 saturation is 100% on room air. General: This is a chronically ill-appearing elderly male, lying in bed in no acute distress. Heart: S1, S2. Normal. Lungs: Equal air entry bilaterally. No wheezing. No rales. No rhonchi. Abdomen: Positive bowel sounds. Soft, nontender, nondistended. Extremities: 3+ edema bilaterally. Neurologic: The patient is alert and oriented x3. LABS: Hemoglobin 8.2, hematocrit 24, platelets 71. Sodium 131, potassium 4.5, chloride 98, CO2 23. BUN 47, creatinine 1.1, glucose 107, total bilirubin 1.8. AST 48, ALT 29, alkaline phosphatase 69, albumin 2.9. ASSESSMENT AND PLAN: 1. Decompensated liver cirrhosis. Continue with supportive care. 2. Massive ascites, status post large volume paracentesis. Stable. 3. Acute kidney injury. Improved. 4. Coagulopathy. Stable. 5. Chronic thrombocytopenia. We will continue to monitor the platelet count closely. 6. Small pericardial effusion. Aware. 7. Tachycardia. Will start the patient on low-dose beta camryn and monitor his response. 8. Hepatic encephalopathy. Resolved. Continue on lactulose and rifaximin. 9. Chronic pain. Continue on tramadol as needed. 10. Hepatitis C. Aware. 11. Disposition: The patient will likely be discharged home with home health once medically stable. cc: Maryellen Ramírez MD
--- NOTE | 2018-08-08 13:20 | EKG Report ---
Test Performed on : 08/08/2018 1:13:21 PM Test Reason : tachycardia Blood Pressure : / mmHG Vent. Rate : 117 BPM Atrial Rate : 117 BPM P-R Int : 150 ms QRS Dur : 072 ms QT Int : 308 ms P-R-T Axes : 062 -12 055 degrees QTc Int : 429 ms Sinus tachycardia. Low voltage QRS Borderline ECG When compared with ECG of 06-AUG-2018 06:34, Non-specific change in ST segment in Inferior leads Nonspecific T wave abnormality now evident in Inferior leads Nonspecific T wave abnormality no longer evident in Anterior leads Confirmed by Omid LE, Jones Cuenca ([id number]) on 08/08/2018 5:10:16 PM
[2018-08-08] MEDS: COREG PO SCH (21:36)
[2018-08-08] MEDS: ICAR-C PO SCH (21:37)
[2018-08-09] MEDS: CARAFATE LIQUID PO SCH ×2 (02:35→08:12)
[2018-08-09] MEDS: MORPHINE IV PRN ×3 (02:37→11:26)
[2018-08-09 06:26] LABS: HEMOGLOBIN 10.1 g/dL (14.0-18.0); RBC 2.78 XMIL (4.7-6.1); WBC 7.53 X1000 (4.8-10.8)
[2018-08-09 06:27] LABS: HEMATOCRIT 30.2 % (42.0-52.0); MCH 36.3 PG (27-31); MCHC 33.4 g/dL (33-37); MCV 108.6 FL (81-99); MPV 10.8 FL (7.4-10.4); RDW 19.6 % (11.5-14.5)
[2018-08-09 06:37] LABS: AGAP 10; ALB/GLOB RATIO 1.6; ALBUMIN 3.3 g/dL (3.5-5.0); ALKALINE PHOSPHATASE 80 U/L (32-122); BUN 39 mg/dL (8-22); CALCIUM 10.1 mg/dL (8.8-10.2); CHLORIDE 98 mmol/L (98-107); COSMO 275; ESTIMATED GFR > 60; GLUCOSE 110 mg/dL (70-104); GOT 55 U/L (10-34); GPT 34 U/L (10-44); SODIUM 132 mmol/L (136-145); TCO2 24 mmol/L (25-35); TOTAL BILIRUBIN 2.52 mg/dL (0.20-1.00); TOTAL PROTEIN 5.3 g/dL (6.3-8.3)
[2018-08-09 07:04] LABS: INR 1.3; PROTIME 17.2 Seconds (11.0-16.0)
[2018-08-09] MEDS: ICAR-C PO SCH (08:12)
[2018-08-09] MEDS: NICODERM PATCH TD SCH (08:12)
[2018-08-09] MEDS: FOLIC ACID PO SCH (08:12)
[2018-08-09] MEDS: LACTULOSE PO SCH ×3 (08:12→15:16)
[2018-08-09] MEDS: REMERON PO SCH (08:12)
[2018-08-09] MEDS: PROTONIX PO SCH (08:12)
[2018-08-09] MEDS: CENTRUM SILVER PO SCH (08:12)
[2018-08-09] MEDS: XIFAXAN PO SCH (08:12)
[2018-08-09] MEDS: COREG PO SCH (08:13)
[2018-08-09] MEDS: PATIENT'S OWN MED PO SCH (08:38)
[2018-08-09 11:48] VITALS: BP 112/63
--- NOTE | 2018-08-10 13:48 | DISCHARGE SUMMARY ---
ADMISSION DATE: 07/30/2018 DISCHARGE DATE: 08/09/2018 FINAL DISCHARGE DIAGNOSIS: 1. Decompensated liver cirrhosis. 2. Massive ascites status post large volume paracentesis. 3. Acute kidney injury. 4. Coagulopathy. 5. Chronic thrombocytopenia. 6. Small pericardial effusion. 7. Sinus tachycardia. 8. Hepatic encephalopathy. 9. Chronic pain syndrome. 10. Hepatitis C on treatment. 11. Left lower extremity DVT 12. Moderate pulmonary hypertension CONSULTATIONS: 1. Nephrology consultation with Dr. Osborn. 2. GI consultation with Dr. Lockwood. 3. Hematology consultation with Parvin Cohen. IMAGIN. Left leg venous ultrasound which revealed an acute DVT involving the deep veins of the left lower extremity. 2. Head and cervical spine CT which revealed cervical spondylosis. 3. Echocardiogram which revealed an ejection fraction of 70% with moderate pulmonary hypertension. Grade 1 left ventricular diastolic dysfunction. 4. Renal ultrasound which revealed increased renal echotexture consistent with medical renal disease. Also nonobstructing right upper pole renal stone. 5. Chest x-ray which revealed low lung volumes with linear atelectasis. HOSPITAL COURSE: Mr. Pertty is a 63-year-old male with a history of liver cirrhosis and hepatitis C on treatment who presented to the ER with a chief complaint of confusion. On admission the patient was noted to be in decompensated liver failure. The patient's ammonia was noted to be 114 and he was also in renal failure with mild hyperkalemia. The patient was admitted to the hospitalist service to CICU and GI was consulted. The patient was also noted to have swelling in his left leg so a venous ultrasound was done that revealed an acute DVT involving the deep veins of the left leg. However the patient was noted to have a platelet count of 104,000. As a result, hematology was consulted for an opinion regarding anticoagulation. The patient was also noted to have massive ascites so the patient underwent a ultrasound-guided paracentesis at which time 8 L of fluid was aspirated. Given the patient's renal failure, Nephrology was consulted and it was recommended that the patient be treated with albumin infusions for several days. With the initiation of the albumin infusions the patient's renal function improved without any further intervention. The patient was also started on Aldactone and lactulose and rifaximin. With the initiation of these medications, the patient's mental status improved. The patient while hospitalized developed a GI bleed after Xarelto was initiated so the Xarelto was discontinued as recommended by the maid housekeeper. It was recommended that the patient be started back on Xarelto at a dosage of 10mg daily once the hemoglobin and hematocrit were stable. The patient continued to improve clinically and was transferred to the medical floor. The patient was ultimately cleared for discharge on 08/09/2018. DISCHARGE MEDICATIONS: 1. Multivitamin 1 tab oral daily. 2. Xarelto 10 mg p.o. daily. 3. Coreg 3.125 mg oral daily. 4. Icar-C 1 tab oral twice a day. 5. Lactulose 30 mL oral 3 times a day. 6. Rifaximin 550 mg oral twice a day. 7. Carafate 1 g oral every 6 hours. 8. Aldactone 100 mg oral daily. 9. Folic acid 1 mg oral daily. 10. Oxy IR 10 mg oral every 4 hours. 11. Remeron 30 mg oral daily. 12. Epclusa 1 tab oral daily. 13. Prilosec 40 mg p.o. twice a day. DISCHARGE DIET: Low-sodium diet. ACTIVITY: As tolerated. FOLLOWUP INSTRUCTIONS: The patient will need to follow up with Dr. Gambino in 2 weeks. 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 The patient will need to follow up with Dr. Lockwood as scheduled by his clinic. cc: Maryellen Ramírez MD [facility]
== END 2018-08-09 13:40 | disposition home health service (06) | DRG 442 ==
LOC: SUPCPDRO → ED 14:05 → SUATTDRO 07-30 02:54 → EDIPHOLD 07-30 02:54 → 3S 07-30 04:29 → 3N 08-01 08:01 → 3S 08-05 13:33 → 4N 08-08 15:37
PROVIDERS: ATTEND Internal Medicine

== ENCOUNTER 2018-08-19 06:45 | Inpatient (IN) ==
[2018-08-19] MEDS ORDERED: NS 1,000 ML IV ONE ×2 (06:51→07:30)
[2018-08-19] MEDS ORDERED: LACTULOSE NG ONE (07:31)
--- NOTE | 2018-08-19 08:05 | PROVIDER DOCUMENTATION ---
HPI-Neurological Disorder - General Stated Complaint: ams Time Seen by Provider: 08/19/18 06:52 Source: EMS Allergies/Adverse Reactions: Patient Allergies Allergy/AdvReac Type Severity Reaction Status Date / Time No Known Allergies Allergy Verified 07/22/18 09:14 Home Medications: Home Medication List Medication Instructions Recorded Confirmed Last Taken Type Folic Acid 1 mg PO DAILY #30 tab 09/05/17 07/30/18 07/21/18 21:00 Rx Spironolactone [Aldactone] 100 mg PO DAILY #60 tab 09/05/17 07/30/18 07/22/18 07:30 Rx Oxycodone I.r. [Oxy Ir] 10 mg PO Q4H PRN 07/22/18 07/30/18 07/21/18 09:00 History Mirtazapine [Remeron] 30 mg PO DAILY 07/30/18 07/30/18 Unknown History Sofosbuvir/Velpatasvir [Epclusa 1 ea PO DAILY 07/30/18 07/30/18 07/30/18 History 400 mg-100 mg Tablet] Carvedilol [Coreg] 3.125 mg PO DAILY #30 tab 08/09/18 Unknown Rx Iron Carbonyl/Ascorbic Acid 1 ea PO BID #60 tab 08/09/18 Unknown Rx [Icar-C] Lactulose 30 ml PO TID #64 oz 08/09/18 Unknown Rx Multivitamins/Minerals [Centrum 1 ea PO DAILY #30 tab 08/09/18 Unknown Rx Silver] Omeprazole [Prilosec] 40 mg PO BID #60 capsule. 08/09/18 Unknown Rx Rifaximin [Xifaxan] 550 mg PO BID #60 tab 08/09/18 Unknown Rx Sucralfate [Carafate Liquid] 1 gm PO Q6H #14 oz 08/09/18 Unknown Rx - History of Present Illness-Neuro Nature of Presenting Problem: Brought by EMS for AMS. Patient has history of hepatic encephalopathy due to L iver Failure/Cirrhosis, apparently recently admitted at [facility], now here for return of AMS. EMS report patient rousable to loud noise, eyes open, vitals stable. They were unable to place IV. Severity: reports: severe Onset/Duration: reports: unsure Timing: reports: constant Context: reports: found unresponsive by family Character of Altered Mental Status: reports: decreased responsiveness Any recent trauma/injury?: reports: none Character of Deficits: reports: new weakness, decreased ability to stand, decreased ability to walk New weakness or altered sensation location:: reports: general (diffuse) Cognitive Baseline: alert, oriented x3 Gait Baseline: walks without assistance Associated Symptoms: reports: decreased ability to walk or stand Similar Symptoms Previously?: Yes Recently seen or treated by another doctor?: Yes Review of Systems - Adult - REVIEW OF SYSTEMS - ADULT ROS:: unobtainable per condition Constitutional: reports: no symptoms reported Eyes: reports: no symptoms reported Ears, Nose, Mouth & Throat: reports: no symptoms reported Cardiovascular: reports: no symptoms reported Respiratory: reports: no symptoms reported Gastrointestinal: reports: no symptoms reported Genitourinary: reports: no symptoms reported Musculoskeletal: reports: no symptoms reported Integumentary: reports: no symptoms reported Neurological: reports: no symptoms reported Psychiatric: reports: no symptoms reported Endocrine: reports: no symptoms reported Hematologic/Lymphatic: reports: no symptoms reported Allergic/Immunologic: reports: no symptoms reported All Other Systems: Reviewed and Negative Past History - Adult - PAST MEDICAL HISTORY-ADULT Review of Records: reports: Old Records Reviewed, Nursing Assessment Review, Medications Reviewed, Social history reviewed & non-contributory. Major Childhood Illnesses: reports: denies history, other (HEP C) Cardiovascular: reports: denies history Respiratory: reports: denies history Gastrointestinal: reports: hepatitis (C), other (cirrhosis) Obstetrical/Gynecological: reports: denies history Genitourinary: reports: denies history Musculoskeletal: reports: denies history Neurological: reports: other (hepatic encephalopathy) Psychiatric: reports: depression Endocrine/Immune: reports: Diabetes Other Conditions: reports: denies history - PRIOR SURGERIES/PROCEDURES Surgical/Procedure History: reports: none - IMMUNIZATION STATUS Childhood Immunizations: See Nurse Assessment Flu Vaccine: See Nurse Assessment - FAMILY HISTORY Family History: reviewed, not pertinent - SOCIAL HISTORY Smoking: cigarettes, less than 1 pack/day Provider spent 3-5 mins advising pt. on dangers of tobacco.: Discussed manners to quit use, and f/u contacts for add'l counseling. Substance Use: none presently/history of abuse Alcohol Use Frequency: sober (former use) Living Situation: family Physical Exam- Neurological - Physical Exam-Neuro Initial Vital Signs Reviewed: Yes (VSSAF) General Appearance: cachetic (with massive ascites), lethargic, obtunded Eye Exam: bilateral eye: normal inspection, PERRL, EOMI HENMT: normocephalic/atraumatic, other (drymucous membranes). negative: moist mucous membranes Head Injury: no evidence of injury Neck: non-tender, full range of motion, supple, normal inspection Respiratory: chest non-tender, lungs clear, normal breath sounds, no pleuratic chest pain, no respiratory distress, no accessory muscle use Cardiovascular: normal peripheral pulses, regular rate, rhythm, no edema, no gallop, no JVD, no murmur Abdominal Exam: normal bowel sounds, non tender, distended (massive ascites, positive fluid wave) Lymphatic: no adenopathy Extremity: normal range of motion, non-tender, pedal edema, other (skin tears left arm) telephone recorder Exam: PERRL Coordination/Gait: abnormal gait Motor/Sensory: no motor deficit, no sensory deficit, no pronator drift Neurologic: telephone recorder II-XII nml as tested Integumentary: normal color, mottled, purpura, other (poor turgor) Psych/Mental Status: disheveled (covered in feces) - Glascow Coma Scale Best Eye Response: (4) open spontaneously Best Verbal Response: (2) incomprehsible sounds Best Motor Response: (4) withdraws to pain Total Glascow Score: 10 Progress - PLAN OF CARE/RESULTS Progress/Plan/Lab Results: Vital Signs - 8 hr 08/19/18 07:51 Pulse Rate 77 Respiratory Rate 18 Blood Pressure 112/85 O2 Sat by Pulse Oximetry 100 Laboratory Results - last 24 hr 08/19/18 08/19/18 08/19/18 08:17 08:30 08:30 WBC 6.62 RBC 2.81 L Hgb 9.4 L Hct 28.0 L MCV 99.6 H MCH 33.5 H MCHC 33.6 RDW Std Deviation 22.2 H Plt Count 99 L MPV 11.3 H Immature Gran % (Auto) 0.5 Neut % (Auto) 61.7 Lymph % (Auto) 20.7 [place] % (Auto) 13.9 H Eos % (Auto) 2.9 Baso % (Auto) 0.3 Immature Gran # (Auto) 0.03 Neut # (Auto) 4.09 Lymph # (Auto) 1.37 [place] # (Auto) 0.92 H Eos # (Auto) 0.19 Baso # (Auto) 0.02 PT INR PTT (Actin FS) Specimen Type Sample Site pH pCO2 pO2 HCO3 Base Excess Oxyhemoglobin ABG O2 Sat (Calculated) ABG O2 Saturation ABG Carboxyhemoglobin ABG Methemoglobin Jones Test A-a O2 Difference Total Hemoglobin Lactate Liter Flow Blood Gas Modality FiO2 % Sodium 133 L Potassium 4.4 Chloride 103 Carbon Dioxide 23 L Anion Gap 7 BUN 41 H Creatinine 1.2 Estimated GFR/1.73 m2 > 60 BUN/Creatinine Ratio 34 Glucose 135 H POC Glucose 171 H Calculated Osmolality 279 Calcium 8.1 L Total Bilirubin 2.02 H AST 38 H ALT 33 Alkaline Phosphatase 118 Ammonia Creatine Kinase 51 Troponin T Total Protein 4.7 L Albumin 2.5 L Globulin 2.2 Albumin/Globulin Ratio 1.1 Plasma Lactate Urine Source Urine Color Urine Turbidity Urine pH Ur Specific [place] Urine Protein Ur Glucose (Stick) Ur Ketones (Stick) Urine Blood Urine Nitrite Urine Bilirubin Urobilinogen Dipstick Urine Leukocytes Urine WBC (Auto) Urine RBC (Auto) U Epithel Cells (Auto) Urine Bacteria (Auto) Urine Opiates Screen Ur Oxycodone Screen Ur Methadone, Qual Ur Barbiturates Screen Ur Phencyclidine Scrn Ur Amphetamines Screen U Benzodiazepines Scrn Urine Cocaine Screen U Cannabinoids Screen Plasma/Serum Ethyl Alc 08/19/18 08/19/18 08/19/18 08:30 08:30 08:30 WBC RBC Hgb Hct MCV MCH MCHC RDW Std Deviation Plt Count MPV Immature Gran % (Auto) Neut % (Auto) Lymph % (Auto) [place] % (Auto) Eos % (Auto) Baso % (Auto) Immature Gran # (Auto) Neut # (Auto) Lymph # (Auto) [place] # (Auto) Eos # (Auto) Baso # (Auto) PT 32.8 H INR 2.94 PTT (Actin FS) 40.4 Specimen Type Sample Site pH pCO2 pO2 HCO3 Base Excess Oxyhemoglobin ABG O2 Sat (Calculated) ABG O2 Saturation ABG Carboxyhemoglobin ABG Methemoglobin Jones Test A-a O2 Difference Total Hemoglobin Lactate Liter Flow Blood Gas Modality FiO2 % Sodium Potassium Chloride Carbon Dioxide Anion Gap BUN Creatinine Estimated GFR/1.73 m2 BUN/Creatinine Ratio Glucose POC Glucose Calculated Osmolality Calcium Total Bilirubin AST ALT Alkaline Phosphatase Ammonia Creatine Kinase Troponin T < 0.010 Total Protein Albumin Globulin Albumin/Globulin Ratio Plasma Lactate 1.5 Urine Source Urine Color Urine Turbidity Urine pH Ur Specific [place] Urine Protein Ur Glucose (Stick) Ur Ketones (Stick) Urine Blood Urine Nitrite Urine Bilirubin Urobilinogen Dipstick Urine Leukocytes Urine WBC (Auto) Urine RBC (Auto) U Epithel Cells (Auto) Urine Bacteria (Auto) Urine Opiates Screen Ur Oxycodone Screen Ur Methadone, Qual Ur Barbiturates Screen Ur Phencyclidine Scrn Ur Amphetamines Screen U Benzodiazepines Scrn Urine Cocaine Screen U Cannabinoids Screen Plasma/Serum Ethyl Alc 08/19/18 08/19/18 08/19/18 08:30 08:45 09:23 WBC RBC Hgb Hct MCV MCH MCHC RDW Std Deviation Plt Count MPV Immature Gran % (Auto) Neut % (Auto) Lymph % (Auto) [place] % (Auto) Eos % (Auto) Baso % (Auto) Immature Gran # (Auto) Neut # (Auto) Lymph # (Auto) [place] # (Auto) Eos # (Auto) Baso # (Auto) PT INR PTT (Actin FS) Specimen Type ARTERIAL Sample Site R RADIAL pH 7.47 H pCO2 30 L pO2 91 HCO3 23.9 Base Excess -1.3 Oxyhemoglobin 95.1 ABG O2 Sat (Calculated) 13.2 L ABG O2 Saturation 98.7 ABG Carboxyhemoglobin 2.10 ABG Methemoglobin 1.4 Jones Test YES A-a O2 Difference 71.0 Total Hemoglobin 9.8 L Lactate 1.40 Liter Flow 2.0 Blood Gas Modality CANNULA FiO2 % 28.0 Sodium Potassium Chloride Carbon Dioxide Anion Gap BUN Creatinine Estimated GFR/1.73 m2 BUN/Creatinine Ratio Glucose POC Glucose Calculated Osmolality Calcium Total Bilirubin AST ALT Alkaline Phosphatase Ammonia 223 H Creatine Kinase Troponin T Total Protein Albumin Globulin Albumin/Globulin Ratio Plasma Lactate Urine Source Urine Color Urine Turbidity Urine pH Ur Specific [place] Urine Protein Ur Glucose (Stick) Ur Ketones (Stick) Urine Blood Urine Nitrite Urine Bilirubin Urobilinogen Dipstick Urine Leukocytes Urine WBC (Auto) Urine RBC (Auto) U Epithel Cells (Auto) Urine Bacteria (Auto) Urine Opiates Screen Ur Oxycodone Screen Ur Methadone, Qual Ur Barbiturates Screen Ur Phencyclidine Scrn Ur Amphetamines Screen U Benzodiazepines Scrn Urine Cocaine Screen U Cannabinoids Screen Plasma/Serum Ethyl Alc 08/19/18 08/19/18 10:22 10:22 WBC RBC Hgb Hct MCV MCH MCHC RDW Std Deviation Plt Count MPV Immature Gran % (Auto) Neut % (Auto) Lymph % (Auto) [place] % (Auto) Eos % (Auto) Baso % (Auto) Immature Gran # (Auto) Neut # (Auto) Lymph # (Auto) [place] # (Auto) Eos # (Auto) Baso # (Auto) PT INR PTT (Actin FS) Specimen Type Sample Site pH pCO2 pO2 HCO3 Base Excess Oxyhemoglobin ABG O2 Sat (Calculated) ABG O2 Saturation ABG Carboxyhemoglobin ABG Methemoglobin Jones Test A-a O2 Difference Total Hemoglobin Lactate Liter Flow Blood Gas Modality FiO2 % Sodium Potassium Chloride Carbon Dioxide Anion Gap BUN Creatinine Estimated GFR/1.73 m2 BUN/Creatinine Ratio Glucose POC Glucose Calculated Osmolality Calcium Total Bilirubin AST ALT Alkaline Phosphatase Ammonia Creatine Kinase Troponin T Total Protein Albumin Globulin Albumin/Globulin Ratio Plasma Lactate Urine Source CATH Urine Color YELLOW Urine Turbidity CLEAR Urine pH 6.0 Ur Specific [place] 1.020 Urine Protein TRACE A Ur Glucose (Stick) NEGATIVE Ur Ketones (Stick) NEGATIVE Urine Blood NEGATIVE Urine Nitrite NEGATIVE Urine Bilirubin NEGATIVE Urobilinogen Dipstick 2 A Urine Leukocytes NEGATIVE Urine WBC (Auto) <10 Urine RBC (Auto) <10 U Epithel Cells (Auto) <10 Urine Bacteria (Auto) NEGATIVE Urine Opiates Screen NONE DETECTED Ur Oxycodone Screen PRESUMPTIVE POSITIVE A Ur Methadone, Qual NONE DETECTED Ur Barbiturates Screen NONE DETECTED Ur Phencyclidine Scrn NONE DETECTED Ur Amphetamines Screen NONE DETECTED U Benzodiazepines Scrn NONE DETECTED Urine Cocaine Screen NONE DETECTED U Cannabinoids Screen NONE DETECTED Plasma/Serum Ethyl Alc Orders Category Date Time Status Cardiac Monitoring DIRECTED Care 08/19/18 06:49 Active Finger Stick Blood Sugar (ED) DIRECTED Care 08/19/18 06:49 Active [place] Insertion ORDERED Care 08/19/18 07:30 Active Misc. NRSG Communication Order DIRECTED Care 08/19/18 08:30 Active NG/OG/Feeding Tube Insertion ORDERED Care 08/19/18 07:31 Active Oxygen Therapy- ED Nursing DIRECTED Care 08/19/18 06:49 Active Restraint Initiate NonViolent ONCE Care 08/19/18 10:24 Active Saline Loc NOW Care 08/19/18 06:49 Active CHEST-1 VIEW [RAD] Stat Exams 08/19/18 10:23 Completed CHEST-PORTABLE [RAD] Stat Exams 08/19/18 06:[address] ABDOMEN/PELVIS W/O CONTRAST [CT] Stat Exams 08/19/18 07:[address] HEAD W/O CONTRAST [CT] Stat Exams 08/19/18 06:47 Completed ABG [RESP] Routine Lab 08/19/18 08:45 Completed ALCOHOL BLOOD Stat Lab 08/19/18 08:30 Completed AMMONIA [CHEM] Stat Lab 08/19/18 09:23 Completed BLOOD CULTURE [BLDCUL] Stat Lab 08/19/18 08:30 Ordered CBC WITH ELECTRONIC DIFF [HEME] Stat Lab 08/19/18 08:30 Completed CK PROFILE [SP CHEM] Stat Lab 08/19/18 08:30 Completed COMPREHENSIVE METABOLIC PANEL [CHEM] Stat Lab 08/19/18 08:30 Completed LACTATE, PLASMA [CHEM] Stat Lab 08/19/18 08:30 Completed OCCULT BLOOD SCREENING [STOOL] Stat Lab 08/19/18 07:30 Uncollected PROTIME WITH INR [COAG] Stat Lab 08/19/18 08:30 Completed PTT [COAG] Stat Lab 08/19/18 08:30 Completed TROPONIN T Stat Lab 08/19/18 08:30 Completed URINALYSIS [URINALYSIS] Stat Lab 08/19/18 10:22 Completed URINE DRUG SCREEN Stat Lab 08/19/18 10:22 Completed 0.9% Sodium Chloride Inj [Ns] 1,000 ml Med 08/19/18 09:10 Discontinued .ROUTE As directed 0.9% Sodium Chloride Inj [Ns] 1,000 ml Med 08/19/18 06:51 Active IV 75 mls/hr 0.9% Sodium Chloride Inj [Ns] 1,000 ml Med 08/19/18 07:30 Discontinued IV 999 mls/hr Lactulose Med 08/19/18 09:53 Discontinued 30 ml .ROUTE .STK-MED ONE Lactulose Med 08/19/18 07:31 Discontinued 30 ml NG NOW ONE Altered Mental Status Stat Oth 08/19/18 06:49 Ordered EKG [EKG] Stat Ther 08/19/18 06:49 Draft Result Diagrams: 08/19/18 08:30 08/19/18 08:30 - REASSESSMENT Reassessment #1 Time Reassessed: 10:39 Status: improving (given ivf and lactulose via NGT) - EKG 1 Time of EKG reading by physician:: 07:52 EKG Read and Signed by:: Rickey Lomas EKG Interpretation (*Must complete 3 of following elements*): Abnormal Rate: 77 Rhythm: nsr Hope: normal QRS: other (low voltage) [place] Interval: normal ST Wave: non-specific ST changes Comments: significant artifact present - XRAY 1 XRAY Study: Chest Impression: Normal, See EMR Report (EXAM: CHEST-PORTABLE HISTORY: ams TECHNIQUE: Chest two views COMPARISON: 08/07/2018 FINDINGS: The lungs are well expanded. The heart is not enlarged. The vessels are not distended. There are no infiltrates. No effusion identified. IMPRESSION: Negative exam. Electronically signed by Nikko Santa 08/19/2018 9:21 AM 08/19/18920 Interpreting Physician: Nikko Santa MD Dictated Date/Time: 08/19/18920 cc: Rickey Lomas MD; None,PCP) - CT/MRI 1 CT Study: Head Impression: Normal, See EMR Report ( EXAM: CT HEAD W/O CONTRAST HISTORY: ams TECHNIQUE: CT head without contrast COMPARISON: 07/29/2018 FINDINGS: No parenchymal hemorrhage. No epidural or subdural hematoma. No subarachnoid hemorrhage. No mass identified on this noncontrasted exam. No hydrocephalus. No sinus opacification. IMPRESSION: No hemorrhage. Negative brain CT without contrast. This exam was performed using automated exposure control, adjustment of mA or kV according to patient size, and/or use of iterative reconstruction technique. Electronically signed by Nikko Santa 08/19/2018 9:42 AM 08/19/18941 Interpreting Physician: Nikko Santa MD Dictated Date/Time: 940 cc: Carolina Arevalo MD; None,PCP) 2 CT Study: Abdomen Impression: Abnormal, See EMR Report ( EXAM: CT ABDOMEN/PELVIS W/O CONTRAST INDICATION: ABD PAIN/DISTENSION TECHNIQUE: This exam was performed using automated exposure control, adjustment of mA or kV according to patient size, and/or use of iterative reconstruction technique. COMPARISON: 08/24/2017 FINDINGS: The liver is severely cirrhotic. No well-defined hepatic mass can be identified given the limitations of an unenhanced study. There is very large volume ascites throughout the abdomen and pelvis. The spleen is mildly prominent measuring up to 13.8 cm in craniocaudal length. There are several layering gallstones in the gallbladder lumen. The gallbladder appears to be normally distended. The pancreas and adrenal glands are unremarkable. There are multiple nonobstructing intrarenal stones bilaterally. There is no hydronephrosis. The urinary bladder is grossly unremarkable. There is no evidence of significant bowel wall thickening or bowel obstruction. The GI tract is grossly unremarkable, otherwise, as imaged with unenhanced CT. The bony structures are intact. IMPRESSION: 1.Advanced cirrhosis. 2.Mild splenomegaly. 3.Very large volume ascites. 4.Other incidental/nonacute findings detailed above. Electronically signed by Raheem Willingham 08/19/2018 10:11 AM 08/19/18 1011 Interpreting Physician: Raheem Willingham MD Dictated Date/Time: 08/19/18 1002 cc: Carolina Arevalo MD; None,PCP) - CONSULTS/PCP/HOSPITALIST Notification #1 *Consult/PCP/Hospitalist*: MATT Arora for hospitalist paged at [phone] Time Discussed: 11:25 Reason/Comments: Admit to [facility] Consult Disposition: Admit Departure - Departure Date of Disposition Decision: 08/19/18 Time of Disposition Decision: 10:41 DIAGNOSIS: Hepatic encephalopathy Ascites Qualifiers: Ascites type: due to alcoholic cirrhosis Qualified Code(s): K70.31 - Alcoholic cirrhosis of liver with ascites Altered mental status Qualifiers: Altered mental status type: somnolence Qualified Code(s): R40.0 - Somnolence Disposition: ADMITTED INPATIENT 09 Certified Medical Emergency: Emergent Condition: Serious Referrals and Follow-Ups: None,PCP [Primary Care Provider] - - Critical Care Note This patient required my direct & personal management of CC.: No Attestation - Physician/ JENNIFER Attestation Patient care was provided by Advanced Practice Provider:: No The physician spent face to face time with patient:: Yes Advanced Practice Provider documentation review:: Supervising physician onsite and consulted in the evaluation and care of this patient. The physician did have a face to face encounter with the patient.
--- NOTE | 2018-08-19 08:41 | EKG Report ---
Test Performed on : 08/19/2018 07:45:47 AM Test Reason : ams Blood Pressure : / mmHG Vent. Rate : 077 BPM Atrial Rate : 077 BPM P-R Int : 146 ms QRS Dur : 064 ms QT Int : 380 ms P-R-T Axes : 000 039 044 degrees QTc Int : 430 ms Normal sinus rhythm. Low voltage QRS Nonspecific ST abnormality Abnormal ECG When compared with ECG of 08-AUG-2018 13:13, Vent. rate has decreased BY 40 BPM Unconfirmed Result
[2018-08-19 08:56] LABS: ALLEN TEST YES; BE -1.3 mmoll (-3.0-3.0); BLOOD TYPE ARTERIAL; HCO3-(ACT) 23.9 mmoll (20.0-26.0); METHB 1.4 % (0.0-1.5); O2(CT) 13.2 mL/dL (15.0-23.0); O2HB 95.1 % (95.0-99.0); PCO2(98.6) 30 mmHg (35-45); PO2(98.6) 91 mmHg (60-100); SAMPLE BLOOD; SAO2 98.7 % (95.0-100.0); THB 9.8 g/dL (11.5-17.4); pH(98.6) 7.47 (7.35-7.45)
[2018-08-19 08:57] LABS: MODALITY CANNULA
[2018-08-19 09:08] LABS: BASO# 0.02 X1000 (0.0-0.2); BASO% 0.3 % (0.0-0.8); EOS# 0.19 X1000 (0.0-0.7); EOS% 2.9 % (0.0-10.0); HEMOGLOBIN 9.4 g/dL (14.0-18.0); IMM GRAN# 0.03 X1000 (0.0-0.04); IMM GRAN% 0.5 % (0.0-0.5); LYMPH# 1.37 X1000 (1.2-3.4); LYMPH% 20.7 % (20.5-51.1); MCH 33.5 PG (27-31); MCHC 33.6 g/dL (33-37); MCV 99.6 FL (81-99); MONO# 0.92 X1000 (0.11-0.59); MONO% 13.9 % (1.7-9.3); MPV 11.3 FL (7.4-10.4); NEUT# 4.09 X1000 (1.4-6.5); NEUT% 61.7 % (42.2-75.2); PLT 99 X1000 (130-400); RBC 2.81 XMIL (4.7-6.1); RDW 22.2 % (11.5-14.5); WBC 6.62 X1000 (4.8-10.8)
[2018-08-19] MEDS ORDERED: NS 1,000 ML ONE (09:10)
--- NOTE | 2018-08-19 09:24 | Diag Imaging Result Doc PS360 ---
EXAM: CHEST-PORTABLE HISTORY: ams TECHNIQUE: Chest two views COMPARISON: 08/07/2018 FINDINGS: The lungs are well expanded. The heart is not enlarged. The vessels are not distended. There are no infiltrates. No effusion identified. IMPRESSION: Negative exam. Electronically signed by Nikko Santa 08/19/2018 9:21 AM
[2018-08-19 09:29] LABS: INR 2.94; PROTIME 32.8 Seconds (11.0-16.0)
[2018-08-19 09:30] LABS: PTT 40.4 Seconds (22.3-41.8)
[2018-08-19 09:36] LABS: AGAP 7; ALB/GLOB RATIO 1.1; ALBUMIN 2.5 g/dL (3.5-5.0); ALKALINE PHOSPHATASE 118 U/L (32-122); BUN 41 mg/dL (8-22); CALCIUM 8.1 mg/dL (8.8-10.2); CHLORIDE 103 mmol/L (98-107); CK PROFILE 51 U/L (24-204); COSMO 279; CREATININE 1.2 mg/dL (0.7-1.2); ESTIMATED GFR > 60; GLUCOSE 135 mg/dL (70-104); GOT 38 U/L (10-34); GPT 33 U/L (10-44); POTASSIUM 4.4 mmol/L (3.5-5.1); SODIUM 133 mmol/L (136-145); TCO2 23 mmol/L (25-35); TOTAL BILIRUBIN 2.02 mg/dL (0.20-1.00); TOTAL PROTEIN 4.7 g/dL (6.3-8.3)
--- NOTE | 2018-08-19 09:44 | Diag Imaging Result Doc PS360 ---
EXAM: CT HEAD W/O CONTRAST HISTORY: ams TECHNIQUE: CT head without contrast COMPARISON: 07/29/2018 FINDINGS: No parenchymal hemorrhage. No epidural or subdural hematoma. No subarachnoid hemorrhage. No mass identified on this noncontrasted exam. No hydrocephalus. No sinus opacification. IMPRESSION: No hemorrhage. Negative brain CT without contrast. This exam was performed using automated exposure control, adjustment of mA or kV according to patient size, and/or use of iterative reconstruction technique. Electronically signed by Nikko Santa 08/19/2018 9:42 AM
[2018-08-19] MEDS ORDERED: LACTULOSE ONE (09:53)
--- NOTE | 2018-08-19 10:13 | Diag Imaging Result Doc PS360 ---
EXAM: CT ABDOMEN/PELVIS W/O CONTRAST INDICATION: ABD PAIN/DISTENSION TECHNIQUE: This exam was performed using automated exposure control, adjustment of mA or kV according to patient size, and/or use of iterative reconstruction technique. COMPARISON: 08/24/2017 FINDINGS: The liver is severely cirrhotic. No well-defined hepatic mass can be identified given the limitations of an unenhanced study. There is very large volume ascites throughout the abdomen and pelvis. The spleen is mildly prominent measuring up to 13.8 cm in craniocaudal length. There are several layering gallstones in the gallbladder lumen. The gallbladder appears to be normally distended. The pancreas and adrenal glands are unremarkable. There are multiple nonobstructing intrarenal stones bilaterally. There is no hydronephrosis. The urinary bladder is grossly unremarkable. There is no evidence of significant bowel wall thickening or bowel obstruction. The GI tract is grossly unremarkable, otherwise, as imaged with unenhanced CT. The bony structures are intact. IMPRESSION: 1.Advanced cirrhosis. 2.Mild splenomegaly. 3.Very large volume ascites. 4.Other incidental/nonacute findings detailed above. Electronically signed by Raheem Willingham 08/19/2018 10:11 AM
[2018-08-19 10:31] LABS: URINE SOURCE CATH
[2018-08-19 10:37] LABS: BILIRUBIN URINE NEGATIVE (NEGATIVE); BLOOD URINE NEGATIVE (NEGATIVE); COLOR YELLOW; GLUCOSE URINE NEGATIVE (NEGATIVE); KETONE URINE NEGATIVE (NEGATIVE); LEUKOCYTES URINE NEGATIVE (NEGATIVE); NITRITE URINE NEGATIVE (NEGATIVE); PROTEIN URINE TRACE mg/dL (NEGATIVE); TURBIDITY URINE CLEAR (CLEAR); UROBILINOGEN URINE 2 mg/dL (NORMAL)
[2018-08-19 10:39] LABS: UR EPITHELIAL CELLS <10 /HPF (<10); URINE BACTERIA NEGATIVE /HPF; URINE RBC <10 /HPF (<10); URINE WBC <10 /HPF (<10)
[2018-08-19 10:51] LABS: UR AMPHETAMINES QUAL NONE DETECTED (NONE DETECT); UR BARBITUATES QUAL NONE DETECTED (NONE DETECT); UR BENZODIAZEPIN QUAL NONE DETECTED (NONE DETECT); UR CANNABINOIDS QUAL NONE DETECTED (NONE DETECT); UR COCAINE QUAL NONE DETECTED (NONE DETECT); UR METHADONE QUAL NONE DETECTED (NONE DETECT); UR OPIATES QUAL NONE DETECTED (NONE DETECT); UR OXYCODONE QUAL PRESUMPTIVE POSITIVE (NONE DETECT); UR PCP QUAL NONE DETECTED (NONE DETECT)
--- NOTE | 2018-08-19 10:52 | Diag Imaging Result Doc PS360 ---
EXAM: CHEST-1 VIEW HISTORY: ng tube placement TECHNIQUE: Chest abdomen single view COMPARISON: 7:24 AM FINDINGS: Interval placement of a nasogastric tube. This overlies the esophagus and stomach and appears to be in good position. Electronically signed by Nikko Santa 08/19/2018 10:50 AM
--- NOTE | 2018-08-19 13:35 | HISTORY AND PHYSICAL ---
PHYSICIAN: Jake Hilton MD HISTORY OF PRESENT ILLNESS: This is a 63-year-old who was admitted also back in May, history of cirrhosis and ascites, hepatitis C, diabetes mellitus type 2. The patient had a paracentesis on 08/09/2018 and they took off 8 L apparently. He is back in the emergency room. His belly is hard and swollen. His ammonia level is high. He is somnolent and appears to have hepatic encephalopathy. PAST MEDICAL HISTORY: 1. Hepatitis C. 2. Cirrhosis. 3. Colitis. 4. Diabetes mellitus type 2. 5. History of alcohol abuse. According to Luci Mckee as well as his sister, he has not been drinking heavy in the last year. I do not know about recent history. 6. Gastroesophageal reflux. PAST SURGICAL HISTORY: Previous paracentesis. SOCIAL HISTORY: He did previously smoke a half a pack per day. Not sure if he has continued to smoke at this time. Previous history of alcohol abuse. Most recent records, apparently he has cut down on his drinking. He has no known history of illicit drugs. The patient's urine drug screen last time was positive for oxycodone and benzodiazepine. I am not sure we have checked a urine drug screen. We did, presumptive positive for oxycodone, negative for opiates, methadone, barbiturates, phencyclidine, amphetamines, benzodiazepines, cocaine, cannabinoids, and no alcohol in his system. He is taking OxyIR at home. FAMILY HISTORY: Positive for sister having history of cirrhosis and a nephew with cirrhosis as well. ALLERGIES: No known drug allergies. REVIEW OF SYSTEMS: He is not able to give a review of systems. The report we had is that his belly is swollen. He is more confused, more somnolent, so plan to admit him to the hospital. PHYSICAL EXAMINATION: GENERAL: In the emergency room, he is lethargic. He does respond to my voice and touch, opens his eyes and then closes them again. He appears to have a swollen belly. His conjunctivae/sclerae does not appear to be yellow. VITAL SIGNS: Pulse 77, respirations 18, blood pressure 112/85. HEENT: Pupils are equal and round. LUNGS: Clear in all lung grande. CARDIOVASCULAR: Regular rhythm and rate without murmur or S3. ABDOMEN: Distended and appears to be distended with ascites. There is a little bit of shifting dullness or shifting fluid level. He has 1+ pitting edema from ankle up to his knees. SKIN: Multiple tattoos on his chest and arms. I do not see any discrete skin rashes. I do not see any oral or nasal mucosa lesions. LABORATORY DATA: White count 6620, hematocrit is 28, hemoglobin is 9.4 with an MCV of 99, platelet count 99,000. Sodium 133, potassium 4.4, chloride 103, BUN 41, creatinine 1.2, calcium is 8.1, AST 38, ALT 33, total bilirubin was 2.02, alkaline phosphatase 223, total protein 4.7, which is a little low, and albumin is 2.5, which is low. His pro time is 32, which is elevated. Urine unremarkable. ABGs: pH was 7.47, pCO2 30, PO2 is 91, O2 saturation was 95%. Abdominal and pelvic CT done today without contrast: Advanced cirrhosis, mild splenomegaly, very large volume ascites. His chest x-ray was negative exam. No sign of infiltrates. Lungs well expanded. Head CT without contrast, no hemorrhage. No new acute intracranial pathology. His ammonia level was 223. ASSESSMENT/PLAN: 1. Patient with history of alcohol and hepatitis C cirrhosis, reaccumulation of ascites. I do not see any sign of tenderness or peritonitis, but he will most likely need another paracentesis. He has signs of significant hepatic dysfunction. His albumin is low. His PT is high. His transaminases are not very impressive. Bilirubin looks to be stable. We will ask Gastroenterology to help with management. I am not sure where we are in the process of treatment of hepatitis C. We can obtain those records. 2. Looks like we have some protein calorie malnutrition secondary to his cirrhosis. 3. He has a history of chronic kidney disease. We will watch his renal function. His creatinine is 1.2, so renal function looks okay at the present time. We will put him on lactulose 30 mL and probably need to do that q.8 p.o. We will put him on rifaximin which I believe is 550 mg p.o. twice a day. 4. He has a history of thrombocytopenia and I think that is chronic secondary to liver dysfunction. His platelet count is 99,000, which I think is stable. 5. He has a history of anemia of chronic disease. Hematocrit is 28, hemoglobin 9.4 with an MCV of 99. We will check his B12 and folate. We will check his T4 and TSH as well. I will probably check an a.m. cortisol. 6. Lastly, he had a deep venous thrombosis in July. They sent him home on Xarelto. MEDICATIONS: Looking over his home medications, he is on 1. Coreg 3.125 mg p.o. daily. 2. Folic acid 1 mg a day. 3. Icar-C 1 twice a day. 4. Lactulose 30 mL p.o. t.i.d. 5. Remeron 30 mg p.o. daily. 6. Multivitamins with minerals, Centrum Silver 1 a day. 7. Prilosec 40 mg twice a day. 8. Oxycodone IR 10 mg p.o. q.4 hours p.r.n. We will hold the oxycodone. 9. Rifaximin 550 mg p.o. b.i.d. 10. Epclusa which is sofosbuvir and velpatasvir. I am assuming that is for his hepatitis C, 400/100 mg 1 a day. We will see what GI wants to do. I assume we are going to try and continue that. 11. Aldactone 100 mg p.o. daily. 12. Carafate 1 g q.6 hours. We will continue all those medications. We will keep him on a clear liquid diet right now and see how we do. In the past, he has been seen, Dr. Reynolds has seen him before. Looking back to see about an echocardiogram he did on 07/17/2018, at that time no significant valvular abnormality. Estimated left ventricular ejection fraction was 70% without wall motion abnormalities. He had grade 1 left ventricular diastolic dysfunction at that time. cc: Jones Anne MD
[2018-08-19] MEDS ORDERED: ZOFRAN IV PRN (13:46)
[2018-08-19] MEDS: LACTULOSE PO SCH (19:50)
[2018-08-19] MEDS: XIFAXAN PO SCH (20:04)
[2018-08-20] MEDS: LACTULOSE PO SCH (03:31)
[2018-08-20] MEDS ORDERED: LASIX IV ONE (05:04)
[2018-08-20 06:44] LABS: INR 1.72; PROTIME 21.4 Seconds (11.0-16.0)
[2018-08-20] MEDS ORDERED: ALDACTONE PO SCH (09:00)
[2018-08-20] MEDS ORDERED: CARAFATE LIQUID PO SCH (09:30)
[2018-08-20 09:45] LABS: ALBUMIN 2.5 g/dL (3.5-5.0); CREATININE 1.3 mg/dL (0.7-1.2); POTASSIUM 5.1 mmol/L (3.5-5.1); TOTAL BILIRUBIN 3.37 mg/dL (0.20-1.00); TOTAL PROTEIN 5.1 g/dL (6.3-8.3)
[2018-08-20 09:50] LABS: BASO# 0.01 X1000 (0.0-0.2); BASO% 0.1 % (0.0-0.8); EOS# 0.06 X1000 (0.0-0.7); EOS% 0.7 % (0.0-10.0); HEMATOCRIT 30.6 % (42.0-52.0); HEMOGLOBIN 10.2 g/dL (14.0-18.0); IMM GRAN# 0.02 X1000 (0.0-0.04); IMM GRAN% 0.2 % (0.0-0.5); LYMPH# 1.44 X1000 (1.2-3.4); LYMPH% 16.1 % (20.5-51.1); MCHC 33.3 g/dL (33-37); MONO% 13.4 % (1.7-9.3); MPV 11.4 FL (7.4-10.4); NEUT# 6.23 X1000 (1.4-6.5); NEUT% 69.5 % (42.2-75.2); PLT 112 X1000 (130-400); WBC 8.96 X1000 (4.8-10.8)
[2018-08-20] MEDS ORDERED: SODIUM CHLORIDE 0.9% INJ SCH (10:00)
[2018-08-20] MEDS ORDERED: ALBUMIN 25% IV SCH (10:00)
[2018-08-20] MEDS ORDERED: NEXIUM IV SCH (10:00)
[2018-08-20] MEDS ORDERED: MISC. PHARMACY COMMUNICATION SCH (10:15)
[2018-08-20] MEDS ORDERED: ZOSYN 3.375 GM in NS 50 ML IV SCH (10:30)
[2018-08-20] MEDS ORDERED: ZYVOX 600 MG/D5W 600 MG/300 ML IVPB IV SCH (10:45)
--- NOTE | 2018-08-20 11:00 | PROGRESS NOTE ---
DATE: 08/20/2018 INTERVAL HISTORY: No acute events overnight. The patient has not had any bowel movement, and he has been becoming aneuric. I was informed by the gastroenterology team about his worsening clinical status. By that time, I had not evaluated the patient. SUBJECTIVE: The patient is lethargic. Not responding to verbal stimuli. Occasionally moans and groans and has good cough response. VITAL SIGNS: He has been afebrile with temperature of 97.3 degrees, pulse 101, respiratory rate 18, blood pressure 133/36, and he is saturating 98% on 2 L nasal cannula. PHYSICAL EXAMINATION: General: Lethargic, not responding to verbal stimuli. Oral cavity is moist. Lungs: Air entry bilaterally equal. No wheeze, rhonchi, crackles. Heart: S1, S2 normal. No murmur, rub, or gallop. Abdomen: Distended. Generalized tenderness where his moaning increases on my palpation. Dull to percussion over flanks. Tympanic in the periumbilical region. Extremities: Bilateral lower extremity edema. LABS: Suggestive of macrocytic anemia, thrombocytopenia, coagulopathy, low bicarbonate, acute kidney injury. MICROBIOLOGY: Blood cultures are in lab. IMAGING: No new imaging data. ASSESSMENT AND PLAN: 1. Acute encephalopathy likely due to hepatic encephalopathy in the setting of decompensated cirrhosis due to prior history of alcohol and hepatitis C. Start patient on lactulose enema. Get arterial blood gas to assess acid-base status. Start patient on broad- spectrum antibiotics with intravenous Zosyn for suspected spontaneous bacterial peritonitis. I will transfer patient to intensive care unit. 2. SUJIT: Likely due to intravascular volume depletion. IV albumin has been ordered. 2. History of portal hypertensive gastropathy and upper gastrointestinal bleed. His nasogastric tube has been removed considering it was probably irritating his stomach. Continue intravenous proton pump inhibitors twice daily as per Gastroenterology recommendation. 3. Hepatitis C and liver cirrhosis with ascites. His meld score is 25. He does have thrombocytopenia and acquired coagulopathy. Because of his cirrhosis, he has really poor prognosis. Stop beta blockers considering decompensated cirrhosis. I will consult Palliative Care for goals of care discussion. Ultrasound paracentesis has been ordered by Gastroenterology team. 4. Disposition: I will transfer patient to intensive care unit for close monitoring of his respiratory status. His prognosis is really poor and he is at high risk of during this hospitalization. I will try and reach out to patient's family and update them. cc: Jorge Luis Mariano MD ADDENDUM: I had an extensive discussion with his sister about his poor prognosis. I explained to her about Mr. Pretty's high risk for mortality this admission and addressed goals of care. Sister is leaning towards DNR DNI however, we are awaiting his daughter to come by and make that decision today afternoon. ADDENDUM: The palliative care team had a discussion with the patient's daughter and they had decided to make him comfort measures only. KARIS
--- NOTE | 2018-08-20 11:16 | GASTROENTEROLOGY CONSULTATION ---
DATE: 08/20/2018 REASON FOR CONSULTATION: Hepatic encephalopathy. HISTORY OF PRESENT ILLNESS: Mr. Lito Pretty is a 63-year-old gentleman with a past medical history of decompensated HCV cirrhosis treated with Epclusa, complicated by ascites, hepatic encephalopathy, nonbleeding varices, portal hypertensive gastropathy, noninsulin-dependent diabetes, recent diagnosis of lower extremity DVT, GERD, tobacco abuse, who was recently hospitalized from 07/29/2018 to 08/09/2018 for treatment of hepatic encephalopathy, ascites, and GI bleed, who represents with altered mental status. I am unable to obtain a review of systems given the patient's altered mental status and lack of collateral. History obtained from medical record and nurse at bedside. Apparently, the patient was recently admitted at [facility], likely in between his discharge and presentation here. Per EMS records, the patient was arousable to loud noise, his eyes would open spontaneously, vital signs were stable prior to presentation. He was found unresponsive by family. In the ED, his vital signs were normal. He had a Lagos placed and NG tube placed. He was given lactulose through the NG tube, IV fluids, and admitted to the floor. Overnight, it was noted that he had some dark red blood suctioned from his NG tube. His Lagos had to be replaced in the ER because it was pulled out. He was given Lasix overnight with minimal urine output, approximately 94 mL. He remains minimally responsive. REVIEW OF SYSTEMS: As per HPI, otherwise unable to obtain given altered mental status. PAST MEDICAL HISTORY: Decompensated HCV cirrhosis treated with Epclusa, ascites, history of hepatic encephalopathy, portal hypertensive gastropathy, grade 1 nonbleeding esophageal varices, recent lower extremity DVT, noninsulin-dependent diabetes type 2, GERD, chronic headaches, tobacco abuse, protein calorie malnutrition, anemia, thrombocytopenia, hyponatremia. PAST SURGICAL HISTORY: None. FAMILY HISTORY: No family history of liver disease or GI malignancies. SOCIAL HISTORY: One pack per day smoker. He has been smoking for at least the last 40 years. Remote alcohol, quit 30 years ago. Remote opiate abuse. MEDICATIONS: Upon discharge on last admission: Xarelto, Coreg, lactulose, rifaximin, Carafate, Icar-C, Aldactone, folic acid, oxycodone IR, Remeron, Epclusa, Prilosec. ALLERGIES: No known drug allergies. PHYSICAL EXAMINATION: Vital Signs: Currently, temperature 97.3 degrees, heart rate of 101, respiratory rate 9, blood pressure 133/36, O2 saturation 98% on 2 L nasal cannula. General: The patient is obtunded, minimally responsive, no acute distress. HEENT: NG tube with dark red blood suctioned in the reservoir, and clear in the tubing. Minimal scleral icterus. Bilateral pupils are dilated to approximately 6 to 7 mm, responsive to light, bilateral downward gaze, equal. The patient is cachectic. Neck: Supple. No JVD. Cardiac: Tachycardic. No murmurs. Lungs: Shallow breathing. Clear to auscultation bilaterally anteriorly. Abdomen: Obese, nontender, distended with tense ascites. Bulging flanks. Some drainage of ascites at his right lower quadrant paracentesis site. No induration or erythema there. Extremities: There is 2+ to 3+ pitting edema bilaterally. Skin: Multiple skin tears and bruising in the upper extremities. MSK: Diffuse muscle atrophy in the extremities. Temporal wasting. Neurologic: The patient is obtunded. Difficult to appreciate any asterixis. Currently not moving his extremities spontaneously. LABORATORY DATA: White count of 8.9, hemoglobin is 10.2 from 9.4 yesterday, platelets of 112,000 from 99,000 yesterday. INR of 1.72 from 2.9 yesterday. Blood gas on 08/19/2018 showed pH of 7.47, pCO2 of 30, PO2 of 91, lactate of 1.4. Sodium today 137 from 133, potassium 5.1, chloride of 105, bicarb of 17 from 23 yesterday, BUN is 50, creatinine of 1.3, glucose of 119. Total bilirubin of 3.37, AST of 52, ALT of 36, alkaline phosphatase of 109. Ammonia yesterday was 223. CK of 51. Total protein today of 5.1, albumin 2.5. Vitamin B12 is 1188, folate greater than 40, TSH of 6.37. UA yesterday showed trace protein and urobilinogen. Urine toxicology positive for oxycodone. Negative alcohol screen. Blood cultures x2 pending. IMAGING: Head CT negative. Chest x-ray normal. CT of the abdomen and pelvis shows advanced cirrhosis, mild splenomegaly, large-volume ascites. No evidence of bowel wall thickening or obstruction. The GI tract is grossly unremarkable otherwise. Recent EGD on 08/07/2018 showed moderate portal hypertensive gastropathy with diffuse oozing of blood in the antrum, two columns of nonbleeding grade 1 esophageal varices without stigmata of recent bleeding, normal duodenum. ASSESSMENT AND PLAN: Mr. Lito Pretty is a 63-year-old gentleman with decompensated HCV cirrhosis complicated by ascites, hepatic encephalopathy, nonbleeding esophageal variceal bleeding, portal hypertensive gastropathy, who represents with hepatic encephalopathy, acute kidney injury, gastrointestinal bleeding, and worsening ascites. Infectious workup to date is negative. He has not had a diagnostic paracentesis at this point. He continues to be obtunded and minimally responsive. Lasix challenge this morning revealed minimal urine output. His vital signs are notable for tachycardia. Exam notable for tense ascites, cachexia, blood into nasogastric tube, and poor neurologic exam. 1. For his altered mental status, I would recommend discontinuing nasogastric tube and giving the patient rectal lactulose every 2 to 4 hours until the patient is responsive and able to take by mouth. He should be transferred to the intensive care unit for close monitoring. He may need intubation for airway protection. Will defer decision to primary team. Will hold rifaximin for now given inability to take by mouth. Recommend broad-spectrum antibiotics empirically until infection can be ruled out. 2. For his ascites, the patient should have a diagnostic paracenteses, which has been ordered. I would recommend not removing more than 2 liters of fluid. Please send for albumin, cell count, and culture. 3. For his acute kidney injury, the patient has very little urine output. Lagos is in place. Will give him albumin challenge, 25 grams of albumin every 4 hours. Strict intake and output. Consider consulting Nephrology. 4. Gastrointestinal bleeding. The patient is having upper gastrointestinal bleed, likely from known portal hypertensive gastropathy. Will switch his proton pump inhibitor from oral to intravenously twice daily. I have discontinued Carafate at this time as there is minimal benefit. The patient has known nonbleeding esophageal varices. The patient does not appear to be having a variceal bleed given stable blood count. 5. Cirrhosis. This is secondary to chronic hepatitis C. The patient has been on Epclusa. Given the patient's poor neurologic status and inability to take by mouth and worsening decompensation, will hold medication for now. We are holding diuretics as well for his ascites. His liver function tests show a slightly worsening bilirubin at 3.37. AST, ALT, and alkaline phosphatase are stable. His calculated MELD score is 20, which is improved from yesterday. Recommend Palliative Care consult given the patient's progressive decline and recurrent admissions. At this point, he is not a transplant candidate given his active tobacco abuse. The findings and plan were discussed with the nurse at bedside, as well as the hospitalists. Thank you for this consult. Will follow with you. Please call with any questions or concerns.
[2018-08-20 11:59] LABS: ALLEN TEST YES; BE -5.5 mmoll (-3.0-3.0); BLOOD TYPE ARTERIAL; HCO3-(ACT) 20.6 mmoll (20.0-26.0); METHB 0.8 % (0.0-1.5); O2(CT) 12.5 mL/dL (15.0-23.0); O2HB 96.3 % (95.0-99.0); PCO2(98.6) 26 mmHg (35-45); PO2(98.6) 92 mmHg (60-100); SAMPLE BLOOD; SAO2 99.3 % (95.0-100.0); THB 9.1 g/dL (11.5-17.4); pH(98.6) 7.44 (7.35-7.45)
[2018-08-20 12:00] LABS: MODALITY CANNULA
[2018-08-20] MEDS: XIFAXAN PO SCH (12:07)
--- NOTE | 2018-08-20 13:28 | Diag Imaging Result Doc PS360 ---
EXAM: US ABD PARACENTESIS W S/I 08/20/2018 HISTORY: rule out SBP TECHNIQUE: Ultrasound-guided paracentesis. COMMENT: Consent had been previously obtained as the patient is nonverbal at this time. Following sterile preparation of the skin in the lower abdomen and administration 1% lidocaine to the skin and deeper soft tissues, the paracentesis catheter was placed in the lower abdomen in the midline and subsequently 2 L of straw-colored fluid was drained. This was sent to the laboratory in its entirety. IMPRESSION: Successful ultrasound-guided paracentesis. Electronically signed by De Woods 08/20/2018 1:25 PM
[2018-08-20] MEDS: NON-FORMULARY BULK MED PR SCH ×2 (14:23→22:36)
[2018-08-20 14:29] LABS: ALBUMIN BODY FLUID 0.3 g/dL
[2018-08-20] MEDS ORDERED: NS 1,000 ML IV SCH (14:30)
[2018-08-20 14:32] LABS: BODY FLUID SOURCE ASCETIC FLUID; WBC BF 37 /cumm
[2018-08-20 15:17] LABS: MONOS 30 %; POLYS 70 %
[2018-08-20] MEDS ORDERED: XARELTO PO SCH (17:00)
[2018-08-20] MEDS: MORPHINE IV PRN (20:57)
[2018-08-20] MEDS ORDERED: ICAR-C PO SCH (21:00)
[2018-08-21] MEDS: MORPHINE IV PRN ×6 (01:01→23:45)
[2018-08-21] MEDS: ATIVAN IV PRN ×6 (01:26→23:45)
[2018-08-21] MEDS ORDERED: CENTRUM SILVER PO SCH (09:00)
[2018-08-21] MEDS ORDERED: PRILOSEC PO SCH (09:00)
[2018-08-21] MEDS ORDERED: FOLIC ACID PO SCH (09:00)
[2018-08-21] MEDS: NON-FORMULARY BULK MED PR SCH (10:35)
[2018-08-21] MEDS: DURAGESIC 25 MICROGM/HR PATCH TD SCH (13:32)
[2018-08-21] MEDS: LIDODERM TOP SCH (13:32)
--- NOTE | 2018-08-21 15:54 | PROGRESS NOTE ---
DATE: 08/21/2018 OVERNIGHT EVENTS: The palliative care team had a discussion with the patient's sister and daughters about his prognosis. They reiterated my discussion with the patient's sister that considering the patient's advanced cirrhosis and decompensated hepatic encephalopathy, he has a really poor prognosis, and after understanding that, family had decided to make him Do Not Resuscitate Level 1, as well as comfort measures only. All the aggressive measures where stopped, and patient was transferred to a private room. At this point, I had started him on intravenous morphine and intravenous lorazepam to help address his anxiety, pain, and discomfort. SUBJECTIVE: He is lethargic, occasionally moaning and groaning. Patient's sister is at bedside. OBJECTIVE: Currently vitals, temperature 96.8 degrees, pulse 99, respiratory rate 18, blood pressure 120/77. Remarkably, his blood pressure was 60/30, and it had improved today. He is saturating 100% on 2 L nasal cannula. DIAGNOSTIC STUDIES: No new blood tests today. ASSESSMENT AND PLAN: 1. Acute encephalopathy due to hepatic encephalopathy. 2. Decompensated cirrhosis with prior history of alcohol and chronic active hepatitis C. 3. Acute kidney injury, with anuria now. 4. History of portal hypertension, portal hypertensive gastropathy with acute upper gastrointestinal bleed. PLAN: The patient is comfort measures only. Continue intravenous morphine and intravenous lorazepam and increase the frequency of medications to help address his pain, anxiety, and agitation. I will also start him on lidocaine patch for suspected right upper quadrant pain as reported to me by the family and fentanyl patch. Plan of care discussed with the patient's sister. I will again come by and discuss the plan of care with the patient's daughter if she is around again. cc: Jorge Luis Mariano MD
[2018-08-22] MEDS: ATIVAN IV PRN ×5 (04:05→20:57)
[2018-08-22] MEDS: MORPHINE IV PRN ×5 (04:05→20:57)
[2018-08-22] MEDS: LIDODERM TOP SCH ×2 (08:30→21:06)
[2018-08-22] MEDS: ATROPINE 1 % OPHTH SOLN SL PRN ×3 (14:00→21:00)
--- NOTE | 2018-08-22 18:24 | PROGRESS NOTE ---
DATE: 08/22/2018 INTERVAL HISTORY: No acute events overnight. The nurse had conveyed to me that he had a gurgling secretion and wanted me to order some atropine, which I did. The patient's sister is at bedside. She thinks the patient is more comfortable today. SUBJECTIVE: Patient is lethargic. On strong verbal and physical stimuli, he starts moaning. VITALS: Temperature today morning was 96.8, pulse 73, respiratory rate 18, blood pressure 98/65, he was saturating 93% on nasal cannula. PHYSICAL EXAMINATION: He does not appear in any acute distress. He keeps his mouth open, and there are gurgling sounds of secretion. He resists eye opening; however, pupils are equal and reacting to light. Air entry has bilateral rhonchi because of upper respiratory secretions. S1, S2 normal. No murmur, rub, or gallop. Abdomen is distended, tympanic to percussion, and dullness over the flanks. Bilateral lower extremity edema. LABORATORY DATA: No labs. ASSESSMENT AND PLAN: 1. Acute hepatic encephalopathy. 2. Decompensated liver cirrhosis, likely due to alcohol use and chronic active hepatitis C. 3. Acute kidney injury with anuria. 4. History of portal hypertension, portal hypertensive gastropathy with upper gastrointestinal bleed. PLAN: The patient is comfort measures only. I will continue intravenous lorazepam, intravenous morphine, fentanyl patch, and atropine drops to address his discomfort, anxiety, and pain. Plan of care discussed with the patient's sister. All of her questions have been answered. cc: Jorge Luis Mariano MD
[2018-08-23] MEDS: ATIVAN IV PRN ×7 (00:26→21:52)
[2018-08-23] MEDS: MORPHINE IV PRN ×7 (00:27→21:52)
[2018-08-23] MEDS: ATROPINE 1 % OPHTH SOLN SL PRN ×2 (04:41→04:42)
[2018-08-23] MEDS: LIDODERM TOP SCH (09:15)
[2018-08-24] MEDS: MORPHINE IV PRN ×7 (02:55→22:00)
[2018-08-24] MEDS: ATIVAN IV PRN ×7 (02:55→22:00)
--- NOTE | 2018-08-24 08:35 | PROGRESS NOTE ---
DATE: 08/23/2018 INTERVAL COURSE: No acute events. SUBJECTIVE: Patient is lethargic. VITAL SIGNS: He has been febrile with temperature 100.4 degrees, pulse 113, respiratory rate 16, blood pressure 80/40. He is saturating 83% on nasal cannula. PHYSICAL EXAMINATION: General: Appears obtunded. HEENT: Oral cavity is dry. No secretions today. He flickers when I try to open his eyes. Pupils are bilaterally equal reacting to light. He is not in any acute distress. Lungs: Air entry bilaterally equal. No wheeze, rhonchi, crackles. Cardiac: S1, S2 normal. Tachycardic. No murmur, rub, or gallop. Abdomen: Distended, soft. Tympanic to percussion on flanks. Extremities: Bilateral lower extremity edema. LABS: No lab data. ASSESSMENT AND PLAN: 1. Acute hepatic encephalopathy. 2. Decompensated liver cirrhosis with ascites and acute kidney injury with anuria. 3. Alcohol abuse and chronic active hepatitis C. 4. Portal hypertension, portal hypertensive gastroenteropathy and upper gastrointestinal bleed. PLAN: The patient is comfort measures only. I will continue intravenous lorazepam, intravenous morphine, fentanyl patch, atropine drops to address his discomfort, anxiety and pain. The patient appears to be comfortable. The patient's second daughter is currently at bedside. I discussed with her about plan of care. I answered all of her questions. cc: Jorge Luis Mariano MD
[2018-08-24] MEDS: LIDODERM TOP SCH (09:20)
[2018-08-24] MEDS: DURAGESIC 25 MICROGM/HR PATCH TD SCH (12:28)
[2018-08-24] MEDS: ATROPINE 1 % OPHTH SOLN SL PRN ×2 (16:16→19:26)
--- NOTE | 2018-08-24 19:36 | PROGRESS NOTE ---
DATE: 08/24/2018 SUBJECTIVE: The patient continues to be lethargic as per daughter who is at bedside. The patient is comfortable. OBJECTIVE: Vital signs: Temperature 97 degrees, heart rate 98, respiratory rate 16, blood pressure 177/35, O2 saturation 96% on 2 L nasal cannula. On examination, this is a chronically ill-appearing and very malnourished 63-year-old male, lying in bed in no acute distress. Cardiovascular exam: S1, S2 heard. Tachycardic. No murmurs, gallops or rubs. Regular rate and rhythm. Respiratory exam: Some coarse breath sounds noted in both pulmonary bases. Patient not using any accessory muscles or having work of breathing. Abdomen is soft. Nontender to palpation. Neurologic: The patient is obtunded. ASSESSMENT: 1. Acute hepatic encephalopathy. 2. Decompensated liver cirrhosis with ascites. 3. Acute kidney injury with anuria. 4. Alcohol abuse on chronic active hepatitis C. 5. Portal hypertension and portal hypertensive gastroenteropathy. PLAN: At this point the patient is on comfort care measures only. We will continue with the same management. cc: Jesus Daley MD
[2018-08-24 19:45] VITALS: BP 89/34
--- NOTE | 2018-08-25 13:34 | DISCHARGE SUMMARY ---
ADMISSION DATE: 08/19/2018 DISCHARGE DATE: 08/25/2018 DISCHARGE DIAGNOSES: 1. Patient unfortunately passed out from the following diagnosis. 2. History of hepatitis C. 3. Liver cirrhosis with hepatic encephalopathy. 4. Gastrointestinal bleeding. 5. Liver cirrhosis. CONSULTATIONS: Dr. Gene Lockwood from GI. HOSPITAL COURSE: Patient was admitted to the hospital for ascites, cirrhosis, hepatitis C. The patient unfortunately was getting worse, more obtunded and somnolent. GI has been consulted. Because he has been many times admitted to the hospital and not really showing good improvement, we decided to consult palliative care and the family agreed to provide comfort care measures only on him. The patient was feeling fine then and unfortunately this patient first hour of the morning today. cc: Jesus Daley MD
== END 2018-08-25 01:15 | disposition expired | DRG 433 ==
LOC: ED 06:45 → SUATTDRO 14:46 → EDIPHOLD 14:46 → 3S 17:34 → ICU 08-20 10:56 → 3N 08-20 23:01
PROVIDERS: ATTEND Internal Medicine
CPT/HCPCS: 49083; 70450; 71010; 71045; 74176; 80053; 80101; 80301; 80307; 80320; 80324; 80345; 80346; 80353; 80358; 80361; 80365; 81001; 82042; 82055; 82140; 82550; 82607; 82746; 82805; 82948; 83605; 83992; 84439; 84443; 84484; 85025; 85610; 85730; 87040; 89051; 93005; 94761; A9270; G0431; G0434; G0479; G0480; G6040; J1940; J2020; J2060; J2270; J2543; J7030; P9047; XXXXX